=== PATIENT | female | born 1975 | race African-American/Black ===

== ENCOUNTER 2016-11-01 21:27 | Inpatient (IN) | payer OTHER ==
[~2016-11-01 21:27] MED LIST: ALBU1.25 NEB; ALBUAER3 INH; ATOV750UDC PO; AZIT600T PO; CEFU250T PO; CYCL1TAB29 PO; DOLU1TAB PO; PREZ600T2 PO; PROM25TA5 PO; RITO100 PO; VIRE300T2 PO; ZANT150T2 PO
[2016-11-01 21:29] VITALS: BP 92/52; PULSE 106; RESP 16; TEMP 98.5; O2SAT 100
[2016-11-01] MEDS ORDERED: PROM2SUP RECTAL (22:23)
[2016-11-01] MEDS ORDERED: VANCOMYCIN INJ 1,000 MG in SODIUM CHLOR 0.9% 250 ML INJ 250 ML IV ONE (22:30)
[2016-11-01] MEDS ORDERED: PIPERACIL-TAZO 3.375 GM PREMIX 50 ML IV ONE (22:30)
[2016-11-01] MEDS ORDERED: SODIUM CHLOR 0.9% 1000 ML INJ 1,000 ML IV ONE (22:30)
--- NOTE | 2016-11-01 22:31 | PD ---
HPI Chief Complaint: Fever Time Seen by Provider: 22:21 Travel History International Travel<30 days: No Contact w/Intl Traveler<30days: No Traveled to known affect area: No History of Present Illness HPI The patient is a 41 year old female who presents to the [facility] emergency department with a history of reportedly not feeling well for the last 4 days. She reports that it began when she was not able to get up in the mornings to take her HIV medications. The patient reports having generalized weakness. She reports that she's had for the last week of cough been productive of yellow sputum. She reports that she's had a fever with a MAXIMUM TEMPERATURE of 102-103 at home. The patient reports having urinary incontinence , however she reports that this has been chronic. She reports that she last saw her HIV doctor at the end of September. She reports that she was told at that time that her viral load was high and her CD4 count was extremely low. The patient reports that she has had right upper quadrant abdominal pain, however she reports that she was diagnosed with gallbladder disease in June 2016. A surgical consultation was placed at that time and it was recommended that the patient have a cholecystectomy, however the surgeon did not feel comfortable doing it at that time as her "counts were very low" and he was concerned that she would not survive the surgery. The patient denies any recent neck pain, chest pain, worsening shortness of breath (she has a history of COPD), vomiting, diarrhea, new urinary symptoms, or neurologic symptoms. [facility] Past Medical History Narrative Medical The patient's past medical history is significant for HIV/AIDS, originally diagnosed in the , history of acid reflux, history of chronic anemia status post blood transfusions 4 previously, history of COPD, progressive weight loss, history of dysphagia and odontophagia, history of alysia pharyngitis and esophagitis. Arthritis: No Asthma: Yes Autoimmune Disease: Yes Blood Disorders: Yes (ANEMIA ) Anxiety: Yes Depression: No Heart Rhythm Problems: No Cancer: No Cardiovascular Problems: No High Cholesterol: No Chemotherapy: No Chest Pain: No Congestive Heart Failure: No COPD: Yes Cerebrovascular Accident: No Diabetes: No Diminished Hearing: No Endocrine: No Gastrointestinal Disorders: Yes GERD: Yes Glaucoma: No Genitourinary: No Headaches: Yes (daily) Hepatitis: No Hiatal Hernia: No Hypertension: Yes Immune Disorder: Yes (HIV) Kidney Stones: No Musculoskeletal: No Neurologic: No Psychiatric: No Reproductive: No Respiratory: Yes (copd, asthma) Integumentary: Yes (ECZEMA) Immunizations Current: Yes Migraines: No Myocardial Infarction: No Radiation Therapy: No Renal Failure: No Seizures: No Sickle Cell Disease: No Sleep Apnea: No Thyroid Disease: No Ulcer: No ?: Not : 6 Para: 2 Miscarriage: 4 : 4 Ectopic : No Ovarian Cysts: No Tubal Ligation: No Past Surgical History Narrative Surgical The patient's past surgical history is significant for multiple colonoscopies and endoscopies. Abdominal Surgery: No AICD: No Appendectomy: No Arteriovenous Shunt: No Cardiac Surgery: No Cholecystectomy: No Ear Surgery: No Endocrine Surgery: No Eye Surgery: No Genitourinary Surgery: No Gynecologic Surgery: No Hysterectomy: No Insulin Pump: No Joint Replacement: No Oral Surgery: No Pacemaker: No Thoracic Surgery: No Other Surgery: Yes (polyp removal, endoscopy, esoph. ablation) Social History Alcohol Use: No Tobacco Use: Yes (1 PACK EVERY 3 DAYS) Substance Use: Yes (5 years ago, oj) Allergies-Medications (Allergen,Severity, Reaction): Coded Allergies: Cipro (Verified Allergy, Severe, HIVES, 11/01/16) Contrast Media (Verified Allergy, Severe, Hives, 11/01/16) Iodide Tincture (Verified Allergy, Severe, HIVES, 11/01/16) Lisinopril (Unverified Allergy, Severe, Swelling, 11/01/16) Wellbutrin (Verified Allergy, Severe, HIVES, 11/01/16) *MDRO Multi-Drug Resistant Organism (Verified Allergy, Unknown, 11/01/16) MRSA 2009 leg wound Reported Meds & Prescriptions Reported Meds & Active Scripts Active Reported Phenergan Supp (Promethazine HCl) 12.5 Mg Supp 12.5 Mg RECTAL Q6H PRN Phenergan (Promethazine HCl) 25 Mg Tab 25 Mg PO Q6H PRN Viread (Tenofovir Disoproxil Fumarate) 300 Mg Tab 300 Mg PO DAILY Norvir (Ritonavir) 100 Mg Cap 100 Mg PO BID Mepron Liq (Atovaquone) 750 Mg/5 Ml Susp 1,500 Mg PO DAILY Take with food. Tivicay (Dolutegravir Sodium) 50 Mg Tab 50 Mg PO BID Prezista (Darunavir) 600 Mg Tab 600 Mg PO BID Azithromycin 600 Mg Tab 1,200 Mg PO Q7D Proair Hfa 8.5 GM Inh (Albuterol Sulfate) 90 Mcg/Act Aer 2 Puff INH Q6H PRN 108 mcg/actuation Albuterol Neb (Albuterol Sulfate) 1.25 Mg/3 Ml Neb 1.25 Mg NEB TID NEB PRN Review of Systems Except as stated in HPI: all other systems reviewed are Neg General / Constitutional: Positive: Fever Eyes: No: Visual changes HENT: Positive: Congestion, No: Headaches Cardiovascular: Positive: Dyspnea on exertion, No: Chest Pain or Discomfort Respiratory: Positive: Cough, No: Shortness of Breath Gastrointestinal: Positive: Nausea, Loss of Appetite, No: Vomiting, Diarrhea, Abdominal Pain, Changes in Bowel Habits, Indigestion Genitourinary: Positive: Urgency, Incontinence (chronic), No: Frequency, Dysuria Musculoskeletal: No: Pain Skin: No Rash Neurologic: Positive: Weakness (generalized weakness), No: Focal Abnormalities , Change in Mentation, Slurred Speech, Sensory Disturbance Psychiatric: No: Depression Endocrine: No: Polydipsia Hematologic/Lymphatic: No: Easy Bruising Physical Exam Narrative General: The patient is a cachectic appearing female in no acute distress. Head and Neck exam: Head is normocephalic atraumatic. Eyes: EOMI, pupils are equal round and reactive to light. Nose: Midline septum with pink mucous membranes Mouth: Dentition unremarkable. Moist mucus membranes. Posterior oropharynx is not erythematous. No tonsillar hypertrophy. Uvula midline. Airway patent. No evidence of thrush per Neck: No palpable lymphadenopathy. No nuchal rigidity. No thyromegaly. Cardiovascular: Regular rate and rhythm without murmurs, gallops, or rubs. No pulse deficit to the extremities and simultaneous auscultation and palpation of her radial artery. Lungs: Clear to auscultation bilaterally. No wheezes, rhonchi, or rales. Abdomen: Soft, with tenderness on palpation in the right upper quadrant of the abdomen. No other tenderness on palpation of the other 3 quadrants. No tenderness on palpation of McBurney's point. Negative Ornelas's sign. No guarding, rebound, or rigidity. Normal bowel sounds are audible. Extremities: No clubbing, cyanosis, or edema. 2+ pulses in all 4 extremities. Back: No spinous process tenderness to palpation. Right-sided CVA tenderness to palpation. Neurologic Exam: Grossly nonfocal. Skin Exam: No rash noted. Intact skin that is warm and dry. Data Data Last Documented VS Vital Signs Date Time Temp Pulse Resp B/P Pulse Ox O2 Delivery O2 Flow Rate FiO2 11/02/16 01:24 73 18 102/67 100 Room Air 11/02/16 00:51 97.9 Orders Electrocardiogram (11/01/16 22:25) Complete Blood Count With Diff (11/01/16 22:25) Comprehensive Metabolic Panel (11/01/16 22:25) Prothrombin Time / Inr (Pt) (11/01/16 22:25) Act Partial Throm Time (Ptt) (11/01/16 22:25) Lactic Acid Sepsis Protocol (11/01/16 22:25) Magnesium (Mg) (11/01/16 22:25) Lipase (11/01/16 22:25) Ckmb (Isoenzyme) Profile (11/01/16 22:25) Troponin I (11/01/16 22:25) Urinalysis - C+S If Indicated (11/01/16 22:25) Blood Culture (11/01/16 22:25) Chest, Single Ap (11/01/16 22:25) Blood Glucose (11/01/16 22:25) Ecg Monitoring (11/01/16 22:25) Iv Access Insert/Monitor (11/01/16 22:25) Oximetry (11/01/16 22:25) Oxygen Administration (11/01/16 22:25) Sodium Chlor 0.9% 1000 Ml Inj (Ns 1000 M (11/01/16 22:30) Vancomycin Inj (Vancomycin Inj) (11/01/16 22:30) Piperacil-Tazo 3.375 Gm Premix (Zosyn 3. (11/01/16 22:30) Ed Urine Pregnancytest Poc (11/01/16 22:25) Ondansetron Inj (Zofran Inj) (11/01/16 22:45) Type And Screen (11/01/16 23:27) Sodium Chlor 0.9% 250 Ml Inj (Ns 250 Ml (11/01/16 23:30) Red Blood Cells (Rbc) (11/01/16 23:27) Blood Product Administration .UPON TRANSFUSION (11/01/16 23:27) Sodium Chlor 0.9% 250 Ml Inj (Ns 250 Ml (11/01/16 23:30) Urine Culture (11/01/16 23:59) Admit Order (Ed Use Only) (11/02/16 01:43) Labs Laboratory Tests Test 11/01/16 11/01/16 11/01/16 11/01/16 22:50 22:55 23:35 23:59 Prothrombin Time 11.5 SEC Prothromb Time International 1.0 RATIO Ratio Activated Partial 36.4 SEC Thromboplast Time Sodium Level 132 MEQ/L Potassium Level 3.1 MEQ/L Chloride Level 99 MEQ/L Carbon Dioxide Level 22.1 MEQ/L Anion Gap 11 MEQ/L Blood Urea Nitrogen 12 MG/DL Creatinine 0.71 MG/DL Estimat Glomerular Filtration 110 ML/MIN Rate Random Glucose 129 MG/DL Calcium Level 8.0 MG/DL Magnesium Level 1.6 MG/DL Total Bilirubin 0.1 MG/DL Aspartate Amino Transf 15 U/L (AST/SGOT) Alanine Aminotransferase 13 U/L (ALT/SGPT) Alkaline Phosphatase 90 U/L Total Creatine Kinase 31 U/L Troponin I LESS THAN 0.02 NG/ML Total Protein 8.0 GM/DL Albumin 1.7 GM/DL Lipase 288 U/L White Blood Count 9.0 TH/MM3 Red Blood Count 2.21 MIL/MM3 Hemoglobin 5.7 GM/DL Hematocrit 16.8 % Mean Corpuscular Volume 76.2 FL Mean Corpuscular Hemoglobin 25.7 PG Mean Corpuscular Hemoglobin 33.8 % Concent Red Cell Distribution Width 21.3 % Platelet Count 430 TH/MM3 Mean Platelet Volume 7.9 FL Neutrophils (%) (Auto) % Lymphocytes (%) (Auto) % Monocytes (%) (Auto) % Eosinophils (%) (Auto) % Basophils (%) (Auto) % Neutrophils # (Auto) TH/MM3 Lymphocytes # (Auto) TH/MM3 Monocytes # (Auto) TH/MM3 Eosinophils # (Auto) TH/MM3 Basophils # (Auto) TH/MM3 CBC Comment AUTO DIFF Differential Total Cells 100 Counted Neutrophils % (Manual) 94 % Band Neutrophils % 3 % Lymphocytes % 2 % Monocytes % 1 % Neutrophils # (Manual) 8.7 TH/MM3 Differential Comment FINAL DIFF MANUAL Toxic Vacuolation PRESENT Platelet Estimate NORMAL Platelet Morphology Comment NORMAL Basophilic Stippling FAINT Spherocytes OCC Lactic Acid Level 1.1 mmol/L Blood Type B POSITIVE Antibody Screen NEGATIVE Crossmatch Leukocyte-Reduced Red Blood Cells Blood Bank Comment Urine Color YELLOW Urine Turbidity HAZY Urine pH 6.0 Urine Specific [place] 1.016 Urine Protein 30 mg/dL Urine Glucose (UA) NEG mg/dL Urine Ketones NEG mg/dL Urine Occult Blood NEG Urine Nitrite NEG Urine Bilirubin NEG Urine Urobilinogen LESS THAN 2.0 MG/DL Urine Leukocyte Esterase LARGE Urine RBC 11 /hpf Urine WBC /hpf Urine WBC Clumps FEW Urine Squamous Epithelial 2 /hpf Cells Urine Renal Epithelial Cells <1 /hpf Urine Bacteria RARE /hpf Microscopic Urinalysis Comment CATH-CULTURE IND MDM Medical Decision Making Medical Screen Exam Complete: Yes Emergency Medical Condition: Yes Medical Record Reviewed: Yes Interpretation(s) Last Impressions Chest X-Ray 11/01/162224 Signed Impressions: Service Date/Time: Tuesday, November 01, 2016 23:15 - CONCLUSION: No acute disease. Brant Taylor MD Differential Diagnosis Symptomatic anemia, versus sepsis, versus pyelonephritis, versus acute cholecystitis, versus pneumonia Narrative Course During the course of the patients emergency department visit, the patients history, examination, and differential diagnosis were reviewed with the patient. The patient had IV access obtained and blood work sent for analysis. The patient was placed on a cardiac sonographer with oximetry and blood pressure monitoring. An EKG was done on arrival. The patient's EKG shows a sinus rhythm heart rate of 81, nonspecific T-wave abnormalities, no acute ST segment elevation. T waves are inverted in V1, lead 3. The patient was provided normal saline 1 L IV fluid bolus. The patient was given vancomycin 1 g IV, Zosyn 3.375 g IV. The patients laboratory studies were reviewed and remarkable for a white count of 9, hemoglobin 5.7, hematocrit 16.8, platelets 430 with neutrophils 94, bands 3, lymphocytes 2. Toxic vacuolation is present on CBC. The patient was typed and crossmatched for 4 units of packed red blood cells, 2 units will be administered as soon as available. CMP is remarkable for a sodium of 132, potassium 3.1, glucose 129, calcium 8, total bilirubin 0.1, cardiac enzymes are within normal limits, lipase 288, PT PTT unremarkable, urinalysis shows 30 protein large leukocyte esterase innumerable WBCs few clumps 2 squamous epithelial cells rare bacteria, culture indicated. Radiology studies were reviewed and remarkable for a chest x-ray that shows no acute abnormality. The patient's results were discussed with her. The patient will be admitted to the hospital for continued evaluation and treatment with symptomatic anemia, pyelonephritis, and an immunocompromise state due to noncompliance with her HIV medication regimen. The patients results were discussed with the patient, including the plan of care. I explained that further testing and/ or monitoring is indicated based on the patients history, examination, and/ or laboratory findings. Therefore, I recommended admission for additional evaluation. The patient expressed understanding and was agreeable with this plan. The patient was admitted to the hospital in stable condition and sent to a bed under the care of the [facility]. Sepsis Criteria SIRS Criteria (2 or more): Heart rate over 90 Diagnosis Primary Impression: Symptomatic anemia Additional Impression: Pyelonephritis Colette Garg MD Nov 01, 2016 22:31
[2016-11-01] MEDS ORDERED: ONDANSETRON HCL 4 MG/2 ML VIAL IV ONE (22:45)
[2016-11-01 23:12] LABS: MEAN CELL VOLUME 76.2 FL (80.0-100.0); MEAN CORPUSCULAR HEMOGLOBIN 25.7 PG (27.0-34.0); MEAN CORPUSCULAR HGB CONC 33.8 % (32.0-36.0); PLATELET COUNT 430 TH/MM3 (150-450); RED BLOOD COUNT 2.21 MIL/MM3 (4.00-5.30); RED CELL DISTRIBUTION WIDTH 21.3 % (11.6-17.2)
[2016-11-01 23:16] LABS: HEMO FLAGS AUTO DIFF
[2016-11-01 23:18] LABS: HEMATOCRIT 16.8 % (35.0-46.0)
[2016-11-01 23:27] LABS: ALT (GPT) 13 U/L (10-53); ANION GAP 11 MEQ/L (5-15); APTT (PATIENT) 36.4 SEC (24.3-30.1); AST (GOT) 15 U/L (15-37); BICARBONATE 22.1 MEQ/L (21.0-32.0); BLOOD UREA NITROGEN 12 MG/DL (7-18); CHLORIDE 99 MEQ/L (98-107); GLOMERULAR FILTRATION RATE 110 ML/MIN (>89); MAGNESIUM 1.6 MG/DL (1.5-2.5); POTASSIUM 3.1 MEQ/L (3.5-5.1); PROTHROMBIN TIME - PATIENT 11.5 SEC (9.8-11.6); SODIUM (NA) 132 MEQ/L (136-145)
[2016-11-01] MEDS ORDERED: SODIUM CHLOR 0.9% 250 ML INJ 250 ML IV ONE ×2 (23:30)
--- NOTE | 2016-11-01 23:30 | RADRPT ---
EXAM DATE/TIME: 11/01/2016 23:15 [place] COMPARISON: CHEST SINGLE AP, August 26, 2016, 20:28. INDICATIONS : Shortness of breath. MEDICAL HISTORY : Chronic obstructive pulmonary disease. SURGICAL HISTORY : None. ENCOUNTER: Initial ACUITY: 2 days PAIN SCORE: 0/10 LOCATION: Bilateral chest FINDINGS: A single view of the chest demonstrates the lungs to be symmetrically aerated without evidence of mas s, infiltrate or effusion. The cardiomediastinal contours are unremarkable. Osseous structures are intact. CONCLUSION: No acute disease. Brant Taylor MD on November 01, 2016 at 23:28 Board Certified Radiologist. This report was verified electronically.
[2016-11-01 23:31] LABS: ALKALINE PHOSPHATASE 90 U/L (45-117); CREATINE KINASE 31 U/L (26-192); TOTAL BILIRUBIN ADULT 0.1 MG/DL (0.2-1.0)
[2016-11-01 23:50] LABS: BANDS 3 % (0-6); NEUTROPHIL # MANUAL DIFF 8.7 TH/MM3 (1.8-7.7); PLATELET MORPHOLOGY NORMAL (NORMAL); POLYS (SEG NEUTROPHILS) 94 % (16-70); SCAN/DIFF FINAL DIFF MANUAL; WBC DIFF SAMPLE 100
[2016-11-01 23:53] LABS: PLATELET ESTIMATE SMEAR NORMAL (NORMAL)
[2016-11-01 23:54] LABS: TOXIC VACUOLATION PRESENT (NONE SEEN)
[2016-11-01 23:55] LABS: SPHEROCYTES OCC (NORMAL)
[2016-11-02] VITALS (15 sets, daily range): BP systolic 97–120; BP diastolic 54–75; PULSE 73–109; RESP 16–20; TEMP 96.4–102.2; O2SAT 98–100
[2016-11-02 00:28] LABS: BACTERIA, URINE RARE /hpf; BLOOD, URINE NEG (NEG); GLUCOSE,URINE NEG (NEG); KETONE, URINE NEG (NEG); NITRITE,URINE NEG (NEG); RENAL EPITHELIAL CELLS <1 /hpf; SQUAMOUS EPITHELIAL CELL URINE 2 /hpf (0-5); URINE COLOR YELLOW (YELLW/STRAW)
[2016-11-02 00:29] LABS: COMMENT (UR) CATH-CULTURE IND; CULTURE IF INDICATED CATH CULTURE IND
[2016-11-02] MEDS ORDERED: ACETAMINOPHEN 325 MG TAB PO PRN (01:45)
[2016-11-02] MEDS ORDERED: SODIUM CHLORIDE 0.9% FLUSH 5 ML FLUSH FLUSH PRN (01:45)
[2016-11-02] MEDS ORDERED: BISACODYL 10 MG SUPP PR PRN (01:45)
[2016-11-02] MEDS ORDERED: ALBUTEROL SULFATE 90 MCG/ACT HFA 8 GM INHALER INH PRN (01:45)
[2016-11-02] MEDS ORDERED: AZITHROMYCIN 600 MG TAB PO SCH (01:45)
[2016-11-02] MEDS ORDERED: POTASSIUM CHLORIDE 20 MEQ CONTROLLED RELEASE TAB PO ONE (02:00)
--- NOTE | 2016-11-02 03:09 | HHI.HP ---
[facility] Service [facility] Primary Care Physician Andrew Hadley Admission Diagnosis symptomatic anemia, pyelonephritis Diagnoses: (1) Anemia Diagnosis: Principal (2) Hypokalemia Diagnosis: Principal (3) UTI (urinary tract infection) Diagnosis: Principal (4) AIDS (acquired immune deficiency syndrome) Diagnosis: Principal Travel History International Travel<30 Days: No Contact w/Intl Traveler <30 Da: No Traveled to Known Affected Are: No History of Present Illness This is a 41-year-old female with a PMH of HIV/AIDS (CD4 <20 on 07/14/16), Non- Compliance, COPD and Anemia who presented to the ER with complaints of generalized weakness x3-4 days. Reports associated cough and fever today at home of 102. States hasn't been taking her HAART therapy regularly because she' s been "too weak to get out of bed". Follows w/ Dr. Cardenas, next appt in December , pt unsure of her CD4 count. On arrival, BP 92/52, HR 106, O2 sat 100% on RA, Afebrile. WBC 9, increased neutrophil count. Hgb 5.7. No active bleeding noted. K+ 3.1. U/a w/ UTI. CXR w/ no acute findings. S/p Blood Culture, Vanc /Zosyn in ER. 2u pRBC ordered, currently transfusing unit 1. Review of Systems Other ROS: 14 point review of systems otherwise negative. Past Family Social History Past Medical History PMH: HIV/AIDS (CD4 <20 on 07/14/16), Non-Compliance, COPD and Anemia Past Surgical History PAST SURGICAL HISTORY: Esophageal Ablation, Polypectomy Allergies: Coded Allergies: Cipro (Verified Allergy, Severe, HIVES, 11/01/16) Contrast Media (Verified Allergy, Severe, Hives, 11/01/16) Iodide Tincture (Verified Allergy, Severe, HIVES, 11/01/16) Lisinopril (Unverified Allergy, Severe, Swelling, 11/01/16) Wellbutrin (Verified Allergy, Severe, HIVES, 11/01/16) *MDRO Multi-Drug Resistant Organism (Verified Allergy, Unknown, 11/01/16) MRSA 2009 leg wound Family History PAST FAMILY HISTORY: Reviewed. No h/o DM or CAD Social History PAST SOCIAL HISTORY: Negative for alcohol. Positive for tobacco and Marijuana. Physical Exam Vital Signs Vital Signs Date Time Temp Pulse Resp B/P Pulse Ox O2 Delivery O2 Flow Rate FiO2 11/02/16 01:24 73 18 102/67 100 Room Air 11/02/16 00:51 97.9 76 18 97/63 100 Room Air 11/01/16 21:29 98.5 106 16 92/52 100 Physical Exam PE: GENERAL: Thin, chronically ill-appearing middle-aged black female female in no acute distress. HEENT: PERRLA, EOMI. No scleral icterus or conjunctival pallor. No lid lag or facial droop. CARDIOVASCULAR: Regular rate and rhythm. No obvious murmurs to auscultation. No chest tenderness to palpation. RESPIRATORY: No obvious rhonchi or wheezing. Clear to auscultation. Breath sounds equal bilaterally. GASTROINTESTINAL: Abdomen soft, non-tender, nondistended. BS normal. MUSCULOSKELETAL: Extremities without clubbing, cyanosis, or edema. No obvious deformities. NEUROLOGICAL: Awake, alert and oriented x4. No focal neurologic deficits. Moving both upper and lower extremities spontaneously. Laboratory Laboratory Tests Test 11/01/16 11/01/16 11/01/16 11/01/16 22:50 22:55 23:35 23:59 Prothrombin Time 11.5 Prothromb Time International 1.0 Ratio Activated Partial 36.4 Thromboplast Time Sodium Level 132 Potassium Level 3.1 Chloride Level 99 Carbon Dioxide Level 22.1 Anion Gap 11 Blood Urea Nitrogen 12 Creatinine 0.71 Estimat Glomerular Filtration 110 Rate Random Glucose 129 Calcium Level 8.0 Magnesium Level 1.6 Total Bilirubin 0.1 Aspartate Amino Transf 15 (AST/SGOT) Alanine Aminotransferase 13 (ALT/SGPT) Alkaline Phosphatase 90 Total Creatine Kinase 31 Troponin I LESS THAN 0.02 Total Protein 8.0 Albumin 1.7 Lipase 288 White Blood Count 9.0 Red Blood Count 2.21 Hemoglobin 5.7 Hematocrit 16.8 Mean Corpuscular Volume 76.2 Mean Corpuscular Hemoglobin 25.7 Mean Corpuscular Hemoglobin 33.8 Concent Red Cell Distribution Width 21.3 Platelet Count 430 Mean Platelet Volume 7.9 Neutrophils (%) (Auto) Lymphocytes (%) (Auto) Monocytes (%) (Auto) Eosinophils (%) (Auto) Basophils (%) (Auto) Neutrophils # (Auto) Lymphocytes # (Auto) Monocytes # (Auto) Eosinophils # (Auto) Basophils # (Auto) CBC Comment AUTO DIFF Differential Total Cells 100 Counted Neutrophils % (Manual) 94 Band Neutrophils % 3 Lymphocytes % 2 Monocytes % 1 Neutrophils # (Manual) 8.7 Differential Comment FINAL DIFF MANUAL Toxic Vacuolation PRESENT Platelet Estimate NORMAL Platelet Morphology Comment NORMAL Basophilic Stippling FAINT Spherocytes OCC Lactic Acid Level 1.1 Blood Type B POSITIVE Antibody Screen NEGATIVE Crossmatch Leukocyte-Reduced Red Blood Cells Blood Bank Comment Urine Color YELLOW Urine Turbidity HAZY Urine pH 6.0 Urine Specific [place] 1.016 Urine Protein 30 Urine Glucose (UA) NEG Urine Ketones NEG Urine Occult Blood NEG Urine Nitrite NEG Urine Bilirubin NEG Urine Urobilinogen LESS THAN 2.0 Urine Leukocyte Esterase LARGE Urine RBC 11 Urine WBC Urine WBC Clumps FEW Urine Squamous Epithelial 2 Cells Urine Renal Epithelial Cells <1 Urine Bacteria RARE Microscopic Urinalysis Comment CATH-CULTURE IND Date/Time Procedure Status Source Growth 11/01/16 23:59 Urine Culture Received Urine Catheterized Urine Pending 11/01/16 22:55 Aerobic Blood Culture Received Blood Peripheral Pending 11/01/16 22:55 Anaerobic Blood Culture Received Blood Peripheral Pending Result Diagram: 11/01/16 2250 11/01/16 2250 Assessment and Plan Problem List: (1) Anemia ICD Code: D64.9 Status: Acute (2) Hypokalemia ICD Code: E87.6 Status: Acute (3) UTI (urinary tract infection) ICD Code: N39.0 Status: Acute (4) AIDS (acquired immune deficiency syndrome) ICD Code: B20 Status: Chronic Assessment and Plan A/P: 1. Anemia: Symptomatic Anemia, c/o generalized weakness/fatigue x2-3 days. Hgb 5.7, no active bleeding. 2u pRBC ordered in ER, currently receiving 1st unit, repeat Hgb/Hct following transfusion. Telemetry. Hemodynamically stable at this time. 2. HIV/AIDS: w/ Non-compliance. CD4 <20 on 07/14/16, resume HAART, Zithro, Atovaquone. CXR w/ no acute findings, images reviewed by me. 3. Hypokalemia: K+ 3.1, replace and recheck in am. 4. UTI: U/a w/ UTI, WBC normal however elevated neutrophil, +temp at home. S/ p Blood Cultures, Vanc/Zosyn in ER, Follow up Blood/Urine Cultures, continue IV Abx. IVF. 5. DVT Prophylaxis: Pharmacologic contraindication secondary to symptomatic anemia. 6. Social work for d/c planning as needed. 7. Case discussed w/ ER physician at length. Ling Holliday MD Nov 02, 2016 03:09
[2016-11-02] MEDS: ONDANSETRON HCL 4 MG/2 ML VIAL IVP PRN ×3 (05:26→21:40)
[2016-11-02] MEDS: SODIUM CHLORIDE 0.9% FLUSH 5 ML FLUSH FLUSH SCH ×2 (08:31→21:41)
[2016-11-02] MEDS: cefTRIAXone INJ 1,000 MG in SODIUM CHLORIDE 0.9% INJ 100 ML IV SCH (08:34)
[2016-11-02 09:43] LABS: BASOPHIL % 0.4 % (0.0-2.0); EOSINOPHIL % 0.2 % (0.0-4.0); HEMATOCRIT 28.2 % (35.0-46.0); LYMPH % 2.4 % (9.0-44.0); LYMPHOCYTE # 0.3 TH/MM3 (1.0-4.8); MEAN CELL VOLUME 81.6 FL (80.0-100.0); MEAN CORPUSCULAR HEMOGLOBIN 27.2 PG (27.0-34.0); MEAN CORPUSCULAR HGB CONC 33.3 % (32.0-36.0); MONO % 4.7 % (0.0-8.0); NEUT % 92.3 % (16.0-70.0); PLATELET COUNT 382 TH/MM3 (150-450); RED BLOOD COUNT 3.45 MIL/MM3 (4.00-5.30); RED CELL DISTRIBUTION WIDTH 18.1 % (11.6-17.2); WHITE BLOOD COUNT 12.9 TH/MM3 (4.0-11.0)
[2016-11-02 09:47] LABS: HEMO FLAGS AUTO DIFF
[2016-11-02 10:22] LABS: ALKALINE PHOSPHATASE 80 U/L (45-117); ALT (GPT) 11 U/L (10-53); ANION GAP 6 MEQ/L (5-15); AST (GOT) 15 U/L (15-37); BICARBONATE 23.5 MEQ/L (21.0-32.0); BLOOD UREA NITROGEN 11 MG/DL (7-18); CHLORIDE 105 MEQ/L (98-107); GLOMERULAR FILTRATION RATE 97 ML/MIN (>89); POTASSIUM 4.1 MEQ/L (3.5-5.1); SODIUM (NA) 134 MEQ/L (136-145); TOTAL BILIRUBIN ADULT 0.2 MG/DL (0.2-1.0)
[2016-11-02 10:27] LABS: BANDS 6 % (0-6); BASOPHILS 1 % (0-2); NEUTROPHIL # MANUAL DIFF 12.4 TH/MM3 (1.8-7.7); POLYS (SEG NEUTROPHILS) 90 % (16-70); WBC DIFF SAMPLE 100
[2016-11-02 10:28] LABS: HYPERSEGMENTED POLYS 1+ (NORMAL)
[2016-11-02 10:29] LABS: PLATELET ESTIMATE SMEAR NORMAL (NORMAL); PLATELET MORPHOLOGY NORMAL (NORMAL); SCAN/DIFF FINAL DIFF MANUAL
--- NOTE | 2016-11-02 10:36 | MB ---
cc: TRACEY SILVER DATE OF CONSULTATION: 11/02/2015 DATE OF : 1975 REASON FOR CONSULTATION Patient with a history of HIV and noncompliance, who presents with generalized weakness, fevers and severe anemia. CHIEF COMPLAINT Generalized weakness. HISTORY OF PRESENT ILLNESS Ms. Nathan is a 41-year-old female with a past medical history of HIV and AIDS with noncompliance with her therapy. She has a history of tobacco abuse and COPD. She presents to the emergency department with one-week symptoms of worsening fatigue and weakness. She also endorses fever and cough. She has been noncompliant with her antiretroviral medications. In June 2016 her CD4 count was less than 20. The patient was hypotensive and tachycardic on admission. Her hemoglobin was 5.7 with microcytosis. UA was consistent with a UTI. Chest x-ray was negative. She was given two units of packed red blood cells. I have been consulted to evaluate her anemia. REVIEW OF SYSTEMS A comprehensive 14-point review of systems was completed which is negative except as described in the HPI. PAST MEDICAL HISTORY 1. HIV/noncompliance with her antiretroviral medications. 2. History of tobacco abuse. 3. COPD. 4. History of anemia. PAST SURGICAL HISTORY Esophageal ablation, polypectomy. MEDICATIONS Inpatient medications include: 1. Atovaquone 1500 mg daily. 2. Darunavir 600 mg tablet p.o. b.i.d. 3. Ritonavir 100 mg p.o. b.i.d. 4. Tenofovir 300 mg p.o. daily. 5. Ceftriaxone 1000 mg IV q.24h. 6. Zofran 4 mg IV q.6h. 7. Dulcolax 10 mg p.r.n. 8. Tylenol 650, one tablet p.o. q.6h. 9. [place] 5/325, one tablet p.o. q.4h. p.r.n. 10.Duo nebs. 11.Azithromycin 1200 mg, one tablet p.o. q.7 days. ALLERGIES 1. CIPRO. 2. CONTRAST MEDIA. 3. IODINE TINCTURE. 4. LISINOPRIL. 5. WELLBUTRIN. PHYSICAL EXAMINATION VITAL SIGNS: Blood pressure 97/56, pulse in the 90s, temperature 98.9, respiratory rate 16, O2 sats 100%. PHYSICAL EXAMINATION GENERAL: A thin, cachectic, chronically ill-appearing female in no apparent distress. HEENT: Pupils are equal, round, reactive to light. EOMI. No oral thrush. No oral lesions. NECK: Supple. No JVD. No bruits. No lymphadenopathy. CHEST: Clear to auscultation bilaterally. CARDIAC: S1, S2. Regular rate and rhythm. ABDOMEN: Soft, nontender, nondistended. Bowel sounds are present. EXTREMITIES: Without any edema, erythema or cyanosis. SKIN: Without any petechiae, lesion or bruises. NEUROLOGIC: No focal deficits. PSYCHIATRIC: Mood and affect is appropriate. LYMPH NODE: No lymphadenopathy on exam. LABORATORY WBC 9, hemoglobin 5.7, MCV 76.2, platelet count 430. Serum chemistries show sodium of 132, potassium 3.1, CO2 22.1, BUN 12, creatinine 0.71, GFR 110, glucose 129, lactic acid 1.1, magnesium 1.6, total bilirubin 0.1, AST 15, ALT 13, alk phos 90, troponins less than 0.02, total protein 8, albumin 1.7, lipase 288. Coag studies show PT of 11.5, INR 1, PTT 36.4. UA is consistent with a large leukocyte esterase. There are innumerable wbc's. IMAGING Chest x-ray shows no acute abnormality. ASSESSMENT AND PLAN This is a 41-year-old female with a past medical history of HIV/AIDS, tobacco abuse and COPD. She noncompliant with her HIV medications. She presents to the emergency department with progressively worsening fatigue/weakness and was found to be severely anemic. 1. Severe microcytic anemia. There are a number of factors that may be contributing towards her anemia including uncontrolled HIV/AIDS. She is microcytic. There is a possibility of underlying GI bleed/iron deficiency. We need to rule out any underlying hemolysis. We will check LDH and haptoglobin and direct [place] test. We will obtain anemia studies to check for serum iron, B12 and folate. Check for any other underlying additional infections such as hepatitis B and C. We will obtain a hemoglobin electrophoresis to rule out any underlying sickle-cell disease or trait. We will transfuse packed red blood cells to keep hemoglobin greater than 7. 2. HIV/AIDS with documented CD4 count of less than 20 on 07/14/2015. Resume HIV medications. Would recommend consulting Infectious Disease. 3. UTI. Urine cultures pending. Continue antibiotics as per primary team. 4. Hypokalemia, potassium of 3.1. Replace potassium. 5. Hypoalbuminemia and malnutrition, likely related to uncontrolled HIV/AIDS. Would recommend a dietary consult. 6. I would also recommend obtaining a stool Hemoccult to rule out any GI loss. Thank you for allowing me to participate in the care of this patient. I will continue to follow this patient along. MD HARJINDER Quinn/CHAVA /9:18 AM /10:14 AM MTDRosalino
--- NOTE | 2016-11-02 11:16 | PD.CONS ---
History of Present Illness Service Infectious disease Consult Requested By Dr Charly Whitaker Reason for Consult Evaluate patient with HIV, UTI and sepsis Primary Care Physician Andrew Hadley Diagnoses: History of Present Illness Patient seen and examined. Records reviewed. Patient is a very poor historian and not very reliable. Patient is a 41-year-old female presented to the hospital complaining of fever, and that she needs help because she's been having problems taking her medications, as well as problem with some nausea and vomiting. Patient states that she has been having fever for at least a month on a daily basis, but he has not addressed this issue with her HIV doctor or her primary care physician. She has a chronic cough which she attributes to her COPD and asthma, denies any significant sputum production, denies chest pain, and currently denies any shortness of breath. She denies any abdominal pain or any diarrhea. She denies any urinary problem. Patient in the past has had problem with dysphagia and odynophagia, and has had previous esophageal dilation. Currently she denies any swallowing difficulty. Patient has had significant weight loss, and very cachectic. On presentation she has been febrile up to 102. Her WBC is slightly elevated at 12,000, and her hemoglobin was 5.7. He denies any hematemesis, hematochezia , or any bright red blood per rectum. She denies any stool with maroon color. She denies any hematuria. She denies any vaginal bleeding. Her chest x-ray is normal. Her urinalysis did show some pyuria. Patient received 2 units of packed RBC, and her hemoglobin is up to 9. Patient has known HIV, and follows up with Dr. Le. Her last CD4 count from June was less than 20. She has had blood culture with АЛЕКСАНДР, and it's unclear whether she has been on treatment. And has had multiple admissions last year and she had signed out AMA on those 3 hospitalizations. Patient stated the last time she saw her HIV doctor was in July of last year, and she is due to see the doctor in December. Infectious disease consultation has been requested to evaluate the patient. Review of Systems Constitutional: COMPLAINS OF: Fever, Weight loss, Chills, Change in appetite Eyes: DENIES: Eye pain Ears, nose, mouth, throat: DENIES: Nasal discharge, Oral lesions, Throat pain, Ear Pain Respiratory: COMPLAINS OF: Cough, DENIES: Hemoptysis, Sputum production, Shortness of breath Cardiovascular: DENIES: Chest pain, Palpitations, Syncope Gastrointestinal: COMPLAINS OF: Nausea, Vomiting, DENIES: Abdominal pain, Black stools, Bloody stools, Constipation, Diarrhea, Difficulty Swallowing Genitourinary: DENIES: Urinary frequency, Dysuria, Nocturia Musculoskeletal: DENIES: Joint pain, Joint Swelling Integumentary: COMPLAINS OF: Rash, DENIES: Nipple discharge Immunologic/allergic: DENIES: Urticaria Neurologic: DENIES: Headache Psychiatric: DENIES: Anxiety Past Family Social History Allergies: Coded Allergies: Cipro (Verified Allergy, Severe, HIVES, 11/01/16) Contrast Media (Verified Allergy, Severe, Hives, 11/01/16) Iodide Tincture (Verified Allergy, Severe, HIVES, 11/01/16) Lisinopril (Unverified Allergy, Severe, Swelling, 11/01/16) Wellbutrin (Verified Allergy, Severe, HIVES, 11/01/16) *MDRO Multi-Drug Resistant Organism (Verified Allergy, Unknown, 11/01/16) MRSA 2009 leg wound Past Medical History HIV, AIDS on the basis of very low CD4 count and АЛЕКСАНДР in the blood culture Hypertension COPD GERD Past Surgical History History of esophageal dilatation and EGD as well as colonoscopy Active Ordered Medications Tylenol [place] Albuterol Mepron Zithromax Dulcolax Rocephin Prezista Zofran Norvir Viread Social History Used to smoke 1 pack per day, now down to less than 1 pack per day of cigarettes Rare alcohol Denies illicit IV drug use, has smoked marijuana in the past Physical Exam Vital Signs Vital Signs Date Time Temp Pulse Resp B/P Pulse Ox O2 Delivery O2 Flow Rate FiO2 11/02/16 08:00 97.4 109 20 114/75 100 11/02/16 06:36 98.9 98 16 97/56 100 11/02/16 05:42 99.4 100 17 107/66 100 11/02/16 05:30 98 11/02/16 05:25 99.4 100 17 107/66 100 11/02/16 05:20 99.9 99 17 102/60 100 11/02/16 05:15 99.9 99 17 102/60 100 11/02/16 04:55 102.2 101 18 99/54 100 11/02/16 04:38 101.2 101 18 99/54 100 11/02/16 03:50 96 18 120/66 99 Room Air 11/02/16 01:24 73 18 102/67 100 Room Air 11/02/16 00:51 97.9 76 18 97/63 100 Room Air 11/01/16 21:29 98.5 106 16 92/52 100 Physical Exam GENERAL: This is a cachectic, well-developed female, looks chronically ill appearing, not in any form of distress. SKIN: Warm and dry, no generalized rash. HEAD: Atraumatic. Normocephalic. Has temporal wasting EYES: [place] conjunctivae, no petechia or hemorrhage. Pupils equal round and reactive. Extraocular motions intact. No scleral icterus. No injection or drainage. ENT: Nose without bleeding, or purulent drainage. Moist oral mucosa, no oral thrush. Throat without erythema, or exudate. Uvula midline. Airway patent. NECK: Trachea midline. No JVD. Has cervical lymphadenopathy. Supple, nontender , no meningeal signs. CARDIOVASCULAR: Regular rate and rhythm without murmurs, gallops, or rubs. RESPIRATORY: Clear to auscultation. Breath sounds equal bilaterally. No wheezes , rales, or rhonchi. GASTROINTESTINAL: Abdomen soft, non-tender, distended, all sounds are present and normoactive. No guarding. MUSCULOSKELETAL: Extremities without clubbing, cyanosis, or edema. No joint effusion, or edema noted. No calf tenderness. Negative Homans sign bilaterally. NEUROLOGICAL: Awake and alert. Cranial nerves II through XII intact. Motor and sensory grossly within normal limits. Five out of 5 muscle strength in all muscle groups. Normal speech. PSYCH: Calm, and cooperative LINE: PIV with no evidence of infection Laboratory Laboratory Tests Test 11/01/16 11/01/16 11/01/16 11/01/16 22:50 22:55 23:35 23:59 Prothrombin Time 11.5 Prothromb Time International 1.0 Ratio Activated Partial 36.4 Thromboplast Time Sodium Level 132 Potassium Level 3.1 Chloride Level 99 Carbon Dioxide Level 22.1 Anion Gap 11 Blood Urea Nitrogen 12 Creatinine 0.71 Estimat Glomerular Filtration 110 Rate Random Glucose 129 Calcium Level 8.0 Magnesium Level 1.6 Total Bilirubin 0.1 Aspartate Amino Transf 15 (AST/SGOT) Alanine Aminotransferase 13 (ALT/SGPT) Alkaline Phosphatase 90 Total Creatine Kinase 31 Troponin I LESS THAN 0.02 Total Protein 8.0 Albumin 1.7 Lipase 288 White Blood Count 9.0 Red Blood Count 2.21 Hemoglobin 5.7 Hematocrit 16.8 Mean Corpuscular Volume 76.2 Mean Corpuscular Hemoglobin 25.7 Mean Corpuscular Hemoglobin 33.8 Concent Red Cell Distribution Width 21.3 Platelet Count 430 Mean Platelet Volume 7.9 Neutrophils (%) (Auto) Lymphocytes (%) (Auto) Monocytes (%) (Auto) Eosinophils (%) (Auto) Basophils (%) (Auto) Neutrophils # (Auto) Lymphocytes # (Auto) Monocytes # (Auto) Eosinophils # (Auto) Basophils # (Auto) CBC Comment AUTO DIFF Differential Total Cells 100 Counted Neutrophils % (Manual) 94 Band Neutrophils % 3 Lymphocytes % 2 Monocytes % 1 Neutrophils # (Manual) 8.7 Differential Comment FINAL DIFF MANUAL Toxic Vacuolation PRESENT Platelet Estimate NORMAL Platelet Morphology Comment NORMAL Basophilic Stippling FAINT Spherocytes OCC Lactic Acid Level 1.1 Blood Type B POSITIVE Antibody Screen NEGATIVE Crossmatch Leukocyte-Reduced Red Blood Cells Blood Bank Comment Urine Color YELLOW Urine Turbidity HAZY Urine pH 6.0 Urine Specific [place] 1.016 Urine Protein 30 Urine Glucose (UA) NEG Urine Ketones NEG Urine Occult Blood NEG Urine Nitrite NEG Urine Bilirubin NEG Urine Urobilinogen LESS THAN 2.0 Urine Leukocyte Esterase LARGE Urine RBC 11 Urine WBC Urine WBC Clumps FEW Urine Squamous Epithelial 2 Cells Urine Renal Epithelial Cells <1 Urine Bacteria RARE Microscopic Urinalysis Comment CATH-CULTURE IND Test 11/02/16 09:27 White Blood Count 12.9 Red Blood Count 3.45 Hemoglobin 9.4 Hematocrit 28.2 Mean Corpuscular Volume 81.6 Mean Corpuscular Hemoglobin 27.2 Mean Corpuscular Hemoglobin 33.3 Concent Red Cell Distribution Width 18.1 Platelet Count 382 Mean Platelet Volume 7.4 Neutrophils (%) (Auto) 92.3 Lymphocytes (%) (Auto) 2.4 Monocytes (%) (Auto) 4.7 Eosinophils (%) (Auto) 0.2 Basophils (%) (Auto) 0.4 Neutrophils # (Auto) 12.0 Lymphocytes # (Auto) 0.3 Monocytes # (Auto) 0.6 Eosinophils # (Auto) 0.0 Basophils # (Auto) 0.0 CBC Comment AUTO DIFF Differential Total Cells 100 Counted Neutrophils % (Manual) 90 Band Neutrophils % 6 Lymphocytes % 1 Monocytes % 2 Basophils % 1 Neutrophils # (Manual) 12.4 Differential Comment FINAL DIFF MANUAL Hypersegmented Polys 1+ Platelet Estimate NORMAL Platelet Morphology Comment NORMAL Sodium Level 134 Potassium Level 4.1 Chloride Level 105 Carbon Dioxide Level 23.5 Anion Gap 6 Blood Urea Nitrogen 11 Creatinine 0.79 Estimat Glomerular Filtration 97 Rate Random Glucose 76 Calcium Level 7.8 Total Bilirubin 0.2 Aspartate Amino Transf 15 (AST/SGOT) Alanine Aminotransferase 11 (ALT/SGPT) Alkaline Phosphatase 80 Total Protein 7.4 Albumin 1.5 Date/Time Procedure Status Source Growth 11/01/16 23:59 Urine Culture Received Urine Catheterized Urine Pending 11/01/16 22:55 Aerobic Blood Culture Received Blood Peripheral Pending 11/01/16 22:55 Anaerobic Blood Culture Received Blood Peripheral Pending Result Diagram: 11/02/16 0927 11/02/16 0927 Imaging RADIOLOGY STUDIES/FILMS REVIEWED Chest X-Ray 11/01/16 7845 Signed Impressions: Service Date/Time: Tuesday, November 01, 2016 23:15 - CONCLUSION: No acute disease. 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 - May need bone marrow biopsy Follow cultures Monitor progress I will determine course of antibiotics once workup is completed I will follow along with you For this consultation Discussed Condition With Rosalino/Pancho Cr PA-C Explained plan to patient - patient states that she will stay in hospital to complete her work-up and not sign out Lakia Khan MD Nov 02, 2016 11:16
--- NOTE | 2016-11-02 11:41 | EKG ---
Date Performed: 11/01/2016 Time Performed: 23:22:51 PTAGE: 41 years EKG: Sinus rhythm NONSPECIFIC T-WAVE ABNORMALITY ABNORMAL ECG PREVIOUS TRACING : 05/22/2016 20.00 DOCTOR: Armen Dubon Interpretating Date/Time 11/02/2016 11:38:36
[2016-11-02] MEDS: TENOFOVIR DISOPROXIL FUMARATE 300 MG TAB PO SCH (14:24)
[2016-11-02] MEDS: ATOVAQUONE SUSP 750 MG/5 ML UDC PO SCH (14:25)
[2016-11-02] MEDS: DOLUTEGRAVIR SODIUM 50 MG TAB PO SCH ×2 (14:25→21:41)
[2016-11-02] MEDS: ETHAMBUTOL HCL 400 MG TAB PO SCH ×2 (14:26→14:36)
[2016-11-02] MEDS: RITONAVIR 100 MG TAB PO SCH ×2 (14:27→21:41)
[2016-11-02] MEDS: DARUNAVIR 600 MG TAB PO SCH ×2 (14:27→21:40)
[2016-11-02] MEDS ORDERED: LOPERAMIDE HCL 2 MG CAP PO PRN (15:45)
[2016-11-02] MEDS: LACTOBACILLUS ACIDOPHILUS TAB PO SCH (18:20)
[2016-11-02] MEDS: NICOTINE 21 MG/24 HR PATCH TD SCH (18:21)
[2016-11-02 20:58] LABS: LDH SERUM 293 U/L (84-246); TRANSFERRIN IRON PROFILE 112 MG/DL (200-360)
[2016-11-02] MEDS: REMOVE OLD NICODERM (NICOTINE) PATCH TD SCH (21:00)
[2016-11-02] MEDS: CLARITHROMYCIN 500 MG TAB PO SCH (21:40)
[2016-11-03] VITALS (8 sets, daily range): BP systolic 88–109; BP diastolic 56–76; PULSE 63–100; RESP 18–20; TEMP 97.4–101.3; O2SAT 93–100
[2016-11-03 08:30] LABS: AUTOMATED NEUTROPHIL # 8.9 TH/MM3 (1.8-7.7); BASOPHIL % 0.3 % (0.0-2.0); EOSINOPHIL % 0.2 % (0.0-4.0); HEMATOCRIT 29.2 % (35.0-46.0); LYMPH % 2.2 % (9.0-44.0); LYMPHOCYTE # 0.2 TH/MM3 (1.0-4.8); MEAN CELL VOLUME 81.9 FL (80.0-100.0); MEAN CORPUSCULAR HEMOGLOBIN 27.3 PG (27.0-34.0); MEAN CORPUSCULAR HGB CONC 33.4 % (32.0-36.0); MONO % 2.9 % (0.0-8.0); NEUT % 94.4 % (16.0-70.0); PLATELET COUNT 374 TH/MM3 (150-450); RED BLOOD COUNT 3.57 MIL/MM3 (4.00-5.30); WHITE BLOOD COUNT 9.4 TH/MM3 (4.0-11.0)
[2016-11-03 08:35] LABS: HEMO FLAGS AUTO DIFF
[2016-11-03] MEDS: RITONAVIR 100 MG TAB PO SCH ×2 (08:50→21:32)
[2016-11-03] MEDS: ATOVAQUONE SUSP 750 MG/5 ML UDC PO SCH (08:51)
[2016-11-03] MEDS: LACTOBACILLUS ACIDOPHILUS TAB PO SCH ×3 (08:51→17:59)
[2016-11-03] MEDS: DARUNAVIR 600 MG TAB PO SCH ×2 (08:51→21:32)
[2016-11-03] MEDS: NICOTINE 21 MG/24 HR PATCH TD SCH (08:51)
[2016-11-03] MEDS: CLARITHROMYCIN 500 MG TAB PO SCH ×2 (08:51→21:32)
[2016-11-03] MEDS: REMOVE OLD NICODERM (NICOTINE) PATCH TD SCH (08:51)
[2016-11-03] MEDS: ETHAMBUTOL HCL 400 MG TAB PO SCH (08:52)
[2016-11-03] MEDS: ONDANSETRON HCL 4 MG/2 ML VIAL IVP PRN ×2 (08:52→21:33)
[2016-11-03] MEDS: TENOFOVIR DISOPROXIL FUMARATE 300 MG TAB PO SCH (08:52)
[2016-11-03] MEDS: DOLUTEGRAVIR SODIUM 50 MG TAB PO SCH ×2 (08:52→21:32)
[2016-11-03] MEDS: SODIUM CHLORIDE 0.9% FLUSH 5 ML FLUSH FLUSH SCH ×2 (08:52→21:32)
[2016-11-03] MEDS: cefTRIAXone INJ 1,000 MG in SODIUM CHLORIDE 0.9% INJ 100 ML IV SCH (08:53)
[2016-11-03 08:54] LABS: ALKALINE PHOSPHATASE 81 U/L (45-117); ALT (GPT) 11 U/L (10-53); ANION GAP 8 MEQ/L (5-15); AST (GOT) 14 U/L (15-37); BICARBONATE 22.2 MEQ/L (21.0-32.0); BLOOD UREA NITROGEN 9 MG/DL (7-18); CHLORIDE 103 MEQ/L (98-107); GLOMERULAR FILTRATION RATE 103 ML/MIN (>89); POTASSIUM 3.3 MEQ/L (3.5-5.1); SODIUM (NA) 133 MEQ/L (136-145); TOTAL BILIRUBIN ADULT 0.2 MG/DL (0.2-1.0)
[2016-11-03] MEDS ORDERED: PNEUMOCOCCAL POLYVALENT INJ 25 MCG/0.5 ML SYR IM ONE (09:00)
[2016-11-03] MEDS ORDERED: INFLUENZA VIRUS VACCINE (QUADRIVALENT) 0.5 ML SYR IM ONE (09:00)
[2016-11-03 09:26] LABS: SCAN/DIFF AUTO DIFF CONFIRMED
[2016-11-03 09:27] LABS: HYPERSEGMENTED POLYS 1+ (NORMAL); KERATOCYTES OCC (NORMAL); PLATELET ESTIMATE SMEAR NORMAL (NORMAL); PLATELET MORPHOLOGY NORMAL (NORMAL)
--- NOTE | 2016-11-03 09:44 | PD.ONC.PN ---
Subjective Subjective Remarks Tmax 101.3 overnight. Patient resting comfortably. She states she is taking her time eating her breakfast as she has problems with her gallbladder and eating too quickly will cause pain in her abdomen. She denies current pain. She endorses several episodes of diarrhea overnight. Objective Data Date Time Temp Pulse Resp B/P Pulse Ox O2 Delivery O2 Flow Rate FiO2 11/03/16 08:11 97.4 70 20 90/61 100 11/03/16 05:56 98.9 67 18 88/56 100 11/03/16 04:35 66 11/03/16 00:40 101.3 100 18 98/62 99 11/02/16 22:10 98.9 100 18 111/74 98 11/02/16 16:00 101.0 103 20 109/70 100 11/02/16 12:00 96.4 103 20 101/62 98 Result Diagram: 11/03/1681811/03/16818 Laboratory Results Laboratory Tests Test 11/02/16 11/02/16 11/03/16 19:41 19:49 08:19 Direct Antiglobulin Test NEGATIVE ([place]) Haptoglobin 519 MG/DL Iron Level 23 MCG/DL Total Iron Binding Capacity 157 MCG/DL Percent Iron Saturation 14.7 % Transferrin 112 MG/DL Lactate Dehydrogenase 293 U/L Vitamin B12 Level 647 PG/ML White Blood Count 9.4 TH/MM3 Red Blood Count 3.57 MIL/MM3 Hemoglobin 9.8 GM/DL Hematocrit 29.2 % Mean Corpuscular Volume 81.9 FL Mean Corpuscular Hemoglobin 27.3 PG Mean Corpuscular Hemoglobin 33.4 % Concent Red Cell Distribution Width 18.0 % Platelet Count 374 TH/MM3 Mean Platelet Volume 7.4 FL Neutrophils (%) (Auto) 94.4 % Lymphocytes (%) (Auto) 2.2 % Monocytes (%) (Auto) 2.9 % Eosinophils (%) (Auto) 0.2 % Basophils (%) (Auto) 0.3 % Neutrophils # (Auto) 8.9 TH/MM3 Lymphocytes # (Auto) 0.2 TH/MM3 Monocytes # (Auto) 0.3 TH/MM3 Eosinophils # (Auto) 0.0 TH/MM3 Basophils # (Auto) 0.0 TH/MM3 CBC Comment AUTO DIFF Differential Comment AUTO DIFF CONFIRMED Hypersegmented Polys 1+ Platelet Estimate NORMAL Platelet Morphology Comment NORMAL Keratocytes OCC Sodium Level 133 MEQ/L Potassium Level 3.3 MEQ/L Chloride Level 103 MEQ/L Carbon Dioxide Level 22.2 MEQ/L Anion Gap 8 MEQ/L Blood Urea Nitrogen 9 MG/DL Creatinine 0.75 MG/DL Estimat Glomerular Filtration 103 ML/MIN Rate Random Glucose 83 MG/DL Calcium Level 7.7 MG/DL Total Bilirubin 0.2 MG/DL Aspartate Amino Transf 14 U/L (AST/SGOT) Alanine Aminotransferase 11 U/L (ALT/SGPT) Alkaline Phosphatase 81 U/L Total Protein 7.3 GM/DL Albumin 1.5 GM/DL Culture Results Microbiology Date/Time Procedure Status Source Growth 11/01/16 22:50 Aerobic Blood Culture - Preliminary Resulted Blood Peripheral NO GROWTH IN 1 DAY 11/01/16 22:50 Anaerobic Blood Culture - Preliminary Resulted Blood Peripheral NO GROWTH IN 1 DAY 11/01/16 22:55 Aerobic Blood Culture - Preliminary Resulted Blood Peripheral NO GROWTH IN 1 DAY 11/01/16 22:55 Anaerobic Blood Culture - Preliminary Resulted Blood Peripheral NO GROWTH IN 1 DAY 11/01/16 23:59 Urine Culture Received Urine Catheterized Urine Pending Administered Medications Medications (Trade) Dose Ordered Sig/Carmen Route PRN Reason Start Time Stop Time Status Last Admin Dose Admin IV Flush (NS Flush) 2 ml BID FLUSH 11/02/16 09:00 11/03/16 08:52 Ondansetron HCl (Zofran Inj) 4 mg Q6H PRN IVP NAUSEA OR VOMITING 11/02/16 01:45 11/03/16 08:52 Acetaminophen (Tylenol) 650 mg Q6H PRN PO FEVER/PAIN SCALE 1 TO 2 11/02/16 01:45 11/03/16 00:47 Atovaquone (Mepron Liq) 1,500 mg DAILY PO 11/02/16 09:00 11/03/16 08:51 Darunavir (Prezista) 600 mg BID PO 11/02/16 09:00 11/03/16 08:51 Ritonavir (Norvir) 100 mg BID PO 11/02/16 09:00 11/03/16 08:50 Tenofovir Disoproxil Fumarate 300 mg 300 mg DAILY PO 11/02/16 09:00 11/03/16 08:52 Ceftriaxone Sodium/Sodium Chloride (Rocephin Inj/NS Inj) 100 ml @ 200 mls/hr Q24H IV 11/02/16 09:00 11/03/16 08:53 Ethambutol HCl (Myambutol) 800 mg DAILY PO 11/02/16 12:00 11/03/16 08:52 Clarithromycin (Biaxin) 500 mg Q12HR PO 11/02/16 21:00 11/03/16 08:51 Lactobacillus Acidophilus (Lactinex) 1 tab TID PO 11/02/16 18:00 11/03/16 08:51 Nicotine (Habitrol 21 Mg Patch.24 Hr) 1 patch DAILY TD 11/02/16 17:00 11/03/16 08:51 Miscellaneous Information 1 HS TD 11/02/16 21:00 11/03/16 08:51 Objective Remarks GENERAL: Severely malnourished female, sitting up in bed SKIN: Warm and dry. bitemporal muscle wasting HEAD: Normocephalic. EYES: No injection or drainage. NECK: Supple, trachea midline. CARDIOVASCULAR: +S1/S2 RESPIRATORY: diminished at bases. anterior clark with occasional rhonchi GASTROINTESTINAL: Abdomen mildly distended, EXTREMITIES: No cyanosis. severe muscle wasting. NEUROLOGICAL: awake and alert, normal speech. moving all extremities. Assessment/Plan Problem List: (1) Symptomatic anemia Status: Acute Plan: --multiple factors contributing --microcytic anemia --?underlying GIB--occult blood pending --iron studies--show low TIBC, low saturation, low transferrin, mixed picture --LDH high/haptoglobin high/direct moses negative-->no evidence of hemolysis --B12/folate: WNL --hepatitis panel pending --hemoglobin electrophoresis is pending transfuse pRBC to keep hgb>7 (2) AIDS (acquired immune deficiency syndrome) Status: Chronic Plan: --on antiretroviral medications --infectious disease following --on Mepron for PCP prophylaxis (3) UTI (urinary tract infection) Status: Acute Plan: --on multiple abx--Rocephin, Biaxin --urine culture pending (4) АЛЕКСАНДР (mycobacterium avium-intracellulare) Status: Acute Plan: --ID following --on ethambutol and Biaxin --?invasion of bone marrow Assessment 41y/o female admitted with generalized weakness, fevers and severe anemia. h/o HIV/AIDS-->June 2016 her CD4 count less than 20. History of tobacco abuse. COPD Plan 1. hgb stable today--occult blood testing is pending--I asked the [employer]IAN to send today as soon as patient has a BM 2. monitor CBC 3. await hgb electrophoresis Attending Statement The exam, history, and the medical decision-making described in the above note were completed with the assistance of the mid-level provider. I reviewed and agree with the findings presented. I attest that I had a [id number] encounter with the patient on the same day, and personally performed and documented my assessment and findings in the medical record. Iron deficient. Will give IV iron. Stool Heme-occult pending. no evidence of hemolysis. B12 normal. Folate pending. Hep B and C testing negative. Has AIDS Cachexia with severe malnutrition albumin 1.5. continue supportive care. Renetta Holt Nov 03, 2016 09:44 Frank Camargo MD Nov 03, 2016 20:13
--- NOTE | 2016-11-03 12:55 | HHI.PR ---
Subjective Remarks Follow up for UTI, fevers, severe anemia. The patient denies any abdominal pain , nausea/vomiting however did have ~6 episodes of diarrhea overnight and today, denies noticing any melena/hematochezia. She does have an appetite however states she has to eat very small meals or she will get sick. She continues to have fevers overnight, Tmax 101.3. Denies dysuria or increased urinary frequency. She has no other medical complaints at this time. Objective Vitals Vital Signs Date Time Temp Pulse Resp B/P Pulse Ox O2 Delivery O2 Flow Rate FiO2 11/03/16 12:00 97.6 80 20 94/60 100 11/03/16 08:11 97.4 70 20 90/61 100 11/03/16 08:00 80 11/03/16 05:56 98.9 67 18 88/56 100 11/03/16 04:35 66 11/03/16 00:40 101.3 100 18 98/62 99 11/02/16 22:10 98.9 100 18 111/74 98 11/02/16 16:00 101.0 103 20 109/70 100 Result Diagram: 11/03/1619 11/03/16818 Imaging Last Impressions Chest X-Ray 11/01/162224 Signed Impressions: Service Date/Time: Tuesday, November 01, 2016 23:15 - CONCLUSION: No acute disease. Brant Taylor MD Objective Remarks GENERAL: Thin cachectic appearing female patient in [facility]. SKIN: Warm and dry. No rash. HEAD: Normocephalic. Atraumatic. EYES: Pupils equal and round. No scleral icterus. No injection or drainage. ENT: No nasal bleeding or discharge. Mucous membranes pink and moist. NECK: Supple. Trachea midline. CARDIOVASCULAR: Regular rate and rhythm. S1, S2 noted. No murmur appreciated. RESPIRATORY: No accessory muscle use. Clear to auscultation. Breath sounds equal bilaterally. GASTROINTESTINAL: Abdomen soft, non-tender, mild abdominal distention. Normoactive bowel sounds x4. MUSCULOSKELETAL: No obvious deformities. Extremities without clubbing, cyanosis , or edema. NEUROLOGICAL: Awake and alert. No obvious cranial nerve deficits. Motor grossly within normal limits. Normal speech. Medications and IVs Current Medications Medications (Trade) Dose Ordered Sig/Carmen Route Start Time Stop Time Status Last Admin (NS Flush) 2 ml UNSCH PRN FLUSH 11/02/16 01:45 (NS Flush) 2 ml BID FLUSH 11/02/16 09:00 11/03/16 08:52 (Zofran Inj) 4 mg Q6H PRN IVP 11/02/16 01:45 11/03/16 08:52 (Dulcolax Supp) 10 mg DAILY PRN MI 11/02/16 01:45 (Tylenol) 650 mg Q6H PRN PO 11/02/16 01:45 11/03/16 00:47 ([place] 5-325 Mg) 1 tab Q4H PRN PO 11/02/16 01:45 ([place] 10-325 Mg) 1 tab Q4H PRN PO 11/02/16 01:45 (Proair Hfa Inh) 2 puff Q6H PRN INH 11/02/16 01:45 (Mepron Liq) 1,500 mg DAILY PO 11/02/16 09:00 11/03/16 08:51 (Prezista) 600 mg BID PO 11/02/16 09:00 11/03/16 08:51 (Norvir) 100 mg BID PO 11/02/16 09:00 11/03/16 08:50 Tenofovir Disoproxil Fumarate 300 mg 300 mg DAILY PO 11/02/16 09:00 11/03/16 08:52 (Rocephin Inj/NS Inj) 100 ml @ 200 mls/hr Q24H IV 11/02/16 09:00 11/03/16 08:53 (Myambutol) 800 mg DAILY PO 11/02/16 12:00 11/03/16 08:52 (Biaxin) 500 mg Q12HR PO 11/02/16 21:00 11/03/16 08:51 (Imodium) 2 mg Q6H PRN PO 11/02/16 15:45 (Lactinex) 1 tab TID PO 11/02/16 18:00 11/03/16 13:04 (Habitrol 21 Mg Patch.24 Hr) 1 patch DAILY TD 11/02/16 17:00 11/03/16 08:51 Miscellaneous Information 1 1 HS TD 11/02/16 21:00 11/03/16 08:51 (Venofer Inj/NS Inj) 110 ml @ 110 mls/hr Q24H IV 11/03/16 13:00 11/05/16 13:59 11/03/16 13:03 (Tylenol) 650 mg Q24H PO 11/03/16 12:30 11/05/16 12:31 11/03/16 13:03 (Benadryl) 25 mg Q24H PO 11/03/16 12:30 11/05/16 12:31 11/03/16 13:03 (Tucks Pads) 1 applic Q6HR PRN TOPICAL 11/03/16 13:00 Urinary Catheter: No Vascular Central Line Catheter: No A/P Problem List: (1) Anemia ICD Code: D64.9 Status: Acute (2) Hypokalemia ICD Code: E87.6 Status: Acute (3) UTI (urinary tract infection) ICD Code: N39.0 Status: Acute (4) AIDS (acquired immune deficiency syndrome) ICD Code: B20 Status: Chronic Assessment and Plan 41-year-old female with a PMH of HIV/AIDS (CD4 <20 on 07/14/16), Non-Compliance , COPD and Anemia who presented to the ER with complaints of generalized weakness x3-4 days. Severe Symptomatic Microcytic Anemia: c/o generalized weakness/fatigue x2-3 days. Hgb 5.7, no active bleeding, hemoccult negative. S/p 2u pRBC transfusion. Repeat Hgb 9.8 today. Telemetry. Iron panel with low TIBC/ saturation/transferrin. Transfuse to keep Hgb >7.0. Consult Hematology, appreciate assistance. Give IV Venofer qd. Sepsis: WBC 12.9K, tachycardic, with Tmax 102.2. Lactic acid 1.1. Suspect secondary to UTI, on IV Rocephin. 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 Consulted infectious disease. Started the patient on ethambutol and Biaxin. HIV/AIDS: w/ Non-compliance. CD4 <20 on 07/14/16, resume HAART, Atovaquone. Infectious disease on board. CXR w/ no acute findings, images reviewed by me. UTI: U/a w/ UTI, WBC normal however elevated neutrophil, +temp at home. S/p Blood Cultures, Vanc/Zosyn in ER, now on IV Rocephin. Urine culture with Corynebacterium. Hypokalemia: K+ 3.1, replaced, still 3.3 today, given additional po KCl replacement. 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 Consult marketing support specialist. DVT Prophylaxis: teds/SCDs Written by Estella Cr, acting as scribe for Dr. Whitaker on 11/03/16 at 12:55. The documentation accurately reflects the work performed [id number] by co Dr. Whitaker on 11/03/16 at 12:55. Estella Cr PA-C Nov 03, 2016 12:55 Carmen Whitaker MD Nov 03, 2016 17:10
[2016-11-03] MEDS ORDERED: WITCH HAZEL 50%/GLYCERIN 12.5% 40 PAD JAR TOPICAL PRN (13:00)
--- NOTE | 2016-11-03 13:00 | HHI.IDPN ---
Subjective Subjective Remarks Notes reviewed Last fever at midnight C/S reviewed WBC better Antibiotics Rocephin Biaxin EMB HAART Mepron Lines PIV Past Medical History HIV, AIDS on the basis of very low CD4 count and АЛЕКСАНДР in the blood culture Hypertension COPD GERD Past Surgical History History of esophageal dilatation and EGD as well as colonoscopy Allergies: Coded Allergies: Cipro (Verified Allergy, Severe, HIVES, 11/01/16) Contrast Media (Verified Allergy, Severe, Hives, 11/01/16) Iodide Tincture (Verified Allergy, Severe, HIVES, 11/01/16) Lisinopril (Unverified Allergy, Severe, Swelling, 11/01/16) Wellbutrin (Verified Allergy, Severe, HIVES, 11/01/16) *MDRO Multi-Drug Resistant Organism (Verified Allergy, Unknown, 11/01/16) MRSA 2009 leg wound Objective . Vital Signs Date Time Temp Pulse Resp B/P Pulse Ox O2 Delivery O2 Flow Rate FiO2 11/03/16 12:00 97.6 80 20 94/60 100 11/03/16 08:11 97.4 70 20 90/61 100 11/03/16 08:00 80 11/03/16 05:56 98.9 67 18 88/56 100 11/03/16 04:35 66 11/03/16 00:40 101.3 100 18 98/62 99 11/02/16 22:10 98.9 100 18 111/74 98 11/02/16 16:00 101.0 103 20 109/70 100 . Laboratory Tests Test 11/01/16 11/02/16 11/02/16 11/03/16 22:50 09:27 19:49 08:19 White Blood Count 9.0 TH/MM3 12.9 TH/MM3 9.4 TH/MM3 Red Blood Count 2.21 MIL/MM3 3.45 MIL/MM3 3.57 MIL/MM3 Hemoglobin 5.7 GM/DL 9.4 GM/DL 9.8 GM/DL Hematocrit 16.8 % 28.2 % 29.2 % Mean Corpuscular Volume 76.2 FL 81.6 FL 81.9 FL Mean Corpuscular Hemoglobin 25.7 PG 27.2 PG 27.3 PG Mean Corpuscular Hemoglobin 33.8 % 33.3 % 33.4 % Concent Red Cell Distribution Width 21.3 % 18.1 % 18.0 % Platelet Count 430 TH/MM3 382 TH/MM3 374 TH/MM3 Mean Platelet Volume 7.9 FL 7.4 FL 7.4 FL Neutrophils (%) (Auto) % 92.3 % 94.4 % Lymphocytes (%) (Auto) % 2.4 % 2.2 % Monocytes (%) (Auto) % 4.7 % 2.9 % Eosinophils (%) (Auto) % 0.2 % 0.2 % Basophils (%) (Auto) % 0.4 % 0.3 % Neutrophils # (Auto) TH/MM3 12.0 TH/MM3 8.9 TH/MM3 Lymphocytes # (Auto) TH/MM3 0.3 TH/MM3 0.2 TH/MM3 Monocytes # (Auto) TH/MM3 0.6 TH/MM3 0.3 TH/MM3 Eosinophils # (Auto) TH/MM3 0.0 TH/MM3 0.0 TH/MM3 Basophils # (Auto) TH/MM3 0.0 TH/MM3 0.0 TH/MM3 CBC Comment AUTO DIFF AUTO DIFF AUTO DIFF Differential Total Cells 100 100 Counted Neutrophils % (Manual) 94 % 90 % Band Neutrophils % 3 % 6 % Lymphocytes % 2 % 1 % Monocytes % 1 % 2 % Neutrophils # (Manual) 8.7 TH/MM3 12.4 TH/MM3 Differential Comment FINAL DIFF FINAL DIFF AUTO DIFF MANUAL MANUAL CONFIRMED Toxic Vacuolation PRESENT Platelet Estimate NORMAL NORMAL NORMAL Platelet Morphology Comment NORMAL NORMAL NORMAL Basophilic Stippling FAINT Spherocytes OCC Basophils % 1 % Hypersegmented Polys 1+ 1+ Haptoglobin 519 MG/DL Keratocytes OCC Laboratory Tests Test 11/01/16 11/01/16 11/02/16 11/02/16 22:50 22:55 09:27 19:49 Sodium Level 132 MEQ/L 134 MEQ/L Potassium Level 3.1 MEQ/L 4.1 MEQ/L Chloride Level 99 MEQ/L 105 MEQ/L Carbon Dioxide Level 22.1 MEQ/L 23.5 MEQ/L Anion Gap 11 MEQ/L 6 MEQ/L Blood Urea Nitrogen 12 MG/DL 11 MG/DL Creatinine 0.71 MG/DL 0.79 MG/DL Estimat Glomerular Filtration 110 ML/MIN 97 ML/MIN Rate Random Glucose 129 MG/DL 76 MG/DL Calcium Level 8.0 MG/DL 7.8 MG/DL Magnesium Level 1.6 MG/DL Total Bilirubin 0.1 MG/DL 0.2 MG/DL Aspartate Amino Transf 15 U/L 15 U/L (AST/SGOT) Alanine Aminotransferase 13 U/L 11 U/L (ALT/SGPT) Alkaline Phosphatase 90 U/L 80 U/L Total Creatine Kinase 31 U/L Troponin I LESS THAN 0.02 NG/ML Total Protein 8.0 GM/DL 7.4 GM/DL Albumin 1.7 GM/DL 1.5 GM/DL Lipase 288 U/L Lactic Acid Level 1.1 mmol/L Iron Level 23 MCG/DL Total Iron Binding Capacity 157 MCG/DL Percent Iron Saturation 14.7 % Transferrin 112 MG/DL Lactate Dehydrogenase 293 U/L Vitamin B12 Level 647 PG/ML Test 11/03/16 08:19 Sodium Level 133 MEQ/L Potassium Level 3.3 MEQ/L Chloride Level 103 MEQ/L Carbon Dioxide Level 22.2 MEQ/L Anion Gap 8 MEQ/L Blood Urea Nitrogen 9 MG/DL Creatinine 0.75 MG/DL Estimat Glomerular Filtration 103 ML/MIN Rate Random Glucose 83 MG/DL Calcium Level 7.7 MG/DL Total Bilirubin 0.2 MG/DL Aspartate Amino Transf 14 U/L (AST/SGOT) Alanine Aminotransferase 11 U/L (ALT/SGPT) Alkaline Phosphatase 81 U/L Total Protein 7.3 GM/DL Albumin 1.5 GM/DL Microbiology Date/Time Procedure Status Source Growth 11/01/16 22:50 Aerobic Blood Culture - Preliminary Resulted Blood Peripheral NO GROWTH IN 2 DAYS 11/01/16 22:50 Anaerobic Blood Culture - Preliminary Resulted Blood Peripheral NO GROWTH IN 2 DAYS 11/01/16 22:55 Aerobic Blood Culture - Preliminary Resulted Blood Peripheral NO GROWTH IN 2 DAYS 11/01/16 22:55 Anaerobic Blood Culture - Preliminary Resulted Blood Peripheral NO GROWTH IN 2 DAYS 11/01/16 23:59 Urine Culture Received Urine Catheterized Urine Pending 11/03/16 10:46 Stool Occult Blood (LAURIE) - Final Complete Stool Stool HEMOCCULT NEGATIVE Imaging Last Impressions Chest X-Ray 11/01/162224 Signed Impressions: Service Date/Time: Tuesday, November 01, 2016 23:15 - CONCLUSION: No acute disease. Brant Taylor MD Physical Exam GENERAL: cachectic female, looks chronically ill appearing, NAD SKIN: Warm and dry, no generalized rash. HEENT: [place] conjunctivae, no petechia or hemorrhage. No scleral icterus. No injection or drainage. Moist oral mucosa, no oral thrush. NECK: Trachea midline. No JVD. Has cervical lymphadenopathy. Supple, nontender , no meningeal signs. CARDIOVASCULAR: Regular rate and rhythm without murmurs, gallops, or rubs. RESPIRATORY: Clear to auscultation. Breath sounds equal bilaterally. No wheezes , rales, or rhonchi. GASTROINTESTINAL: Abdomen soft, non-tender, distended, all sounds are present and normoactive. No guarding. MUSCULOSKELETAL: Extremities without clubbing, cyanosis, or edema. No joint effusion, or edema noted. No calf tenderness. Negative Homans sign bilaterally. 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
[2016-11-03] MEDS: IRON SUCROSE INJ 200 MG in SODIUM CHLORIDE 0.9% INJ 100 ML IV SCH (13:03)
[2016-11-03] MEDS: ACETAMINOPHEN 325 MG TAB PO SCH (13:03)
[2016-11-03] MEDS: diphenhydrAMINE HCL 25 MG CAP PO SCH (13:03)
[2016-11-03 14:41] LABS: HEMOGLOBIN ELECTROPHORESIS ADULT NORMAL HGB
[2016-11-03] MEDS: ACETAMINOPHEN/HYDROcodone 325 MG/10 MG TAB PO PRN (21:52)
[2016-11-04] VITALS (7 sets, daily range): BP systolic 95–113; BP diastolic 61–72; PULSE 70–100; RESP 16–17; TEMP 96.2–98; O2SAT 92–100
[2016-11-04] MEDS: cefTRIAXone INJ 1,000 MG in SODIUM CHLORIDE 0.9% INJ 100 ML IV SCH (08:32)
[2016-11-04] MEDS: NICOTINE 21 MG/24 HR PATCH TD SCH (08:33)
[2016-11-04] MEDS: LACTOBACILLUS ACIDOPHILUS TAB PO SCH ×3 (08:33→18:32)
[2016-11-04] MEDS: ACETAMINOPHEN/HYDROcodone 325 MG/10 MG TAB PO PRN ×3 (08:34→18:33)
[2016-11-04] MEDS: ATOVAQUONE SUSP 750 MG/5 ML UDC PO SCH (09:00)
[2016-11-04] MEDS: SODIUM CHLORIDE 0.9% FLUSH 5 ML FLUSH FLUSH SCH ×2 (09:00→21:45)
[2016-11-04] MEDS: DARUNAVIR 600 MG TAB PO SCH ×2 (09:00→21:45)
[2016-11-04] MEDS: RITONAVIR 100 MG TAB PO SCH ×2 (09:00→21:45)
[2016-11-04] MEDS: CLARITHROMYCIN 500 MG TAB PO SCH ×2 (09:00→21:45)
[2016-11-04] MEDS: ETHAMBUTOL HCL 400 MG TAB PO SCH (09:00)
[2016-11-04] MEDS: TENOFOVIR DISOPROXIL FUMARATE 300 MG TAB PO SCH (09:00)
[2016-11-04] MEDS: DOLUTEGRAVIR SODIUM 50 MG TAB PO SCH ×2 (09:00→21:45)
[2016-11-04 10:54] LABS: AUTOMATED NEUTROPHIL # 8.5 TH/MM3 (1.8-7.7); BASOPHIL % 0.1 % (0.0-2.0); EOSINOPHIL % 0.3 % (0.0-4.0); HEMATOCRIT 27.1 % (35.0-46.0); LYMPH % 1.8 % (9.0-44.0); LYMPHOCYTE # 0.2 TH/MM3 (1.0-4.8); MEAN CORPUSCULAR HEMOGLOBIN 27.4 PG (27.0-34.0); MONO % 2.9 % (0.0-8.0); NEUT % 94.9 % (16.0-70.0); PLATELET COUNT 391 TH/MM3 (150-450); RED BLOOD COUNT 3.27 MIL/MM3 (4.00-5.30); RED CELL DISTRIBUTION WIDTH 18.3 % (11.6-17.2); WHITE BLOOD COUNT 8.9 TH/MM3 (4.0-11.0)
[2016-11-04 11:00] LABS: HEMO FLAGS AUTO DIFF
[2016-11-04 11:33] LABS: BANDS 4 % (0-6); EOSINOPHILS 2 % (0-4); HYPERSEGMENTED POLYS 1+ (NORMAL); NEUTROPHIL # MANUAL DIFF 8.6 TH/MM3 (1.8-7.7); POLYS (SEG NEUTROPHILS) 93 % (16-70); WBC DIFF SAMPLE 100
[2016-11-04 11:34] LABS: PLATELET ESTIMATE SMEAR NORMAL (NORMAL); PLATELET MORPHOLOGY NORMAL (NORMAL); SCAN/DIFF FINAL DIFF MANUAL
--- NOTE | 2016-11-04 12:50 | PD.ONC.PN ---
Subjective Subjective Remarks Afebrile overnight. Patient resting comfortably. She ate breakfast this AM. She denies pain. She states she feels well today. Objective Data Date Time Temp Pulse Resp B/P Pulse Ox O2 Delivery O2 Flow Rate FiO2 11/04/16 12:00 97.1 94 16 95/67 92 11/04/16 08:00 98.0 82 16 97/63 92 11/04/16 04:00 97.1 84 16 97/61 100 11/04/16 01:25 85 11/04/16 00:00 96.2 75 16 97/72 99 11/03/16 21:12 99.0 97 18 109/76 95 11/03/16 15:59 98.0 63 20 99/61 93 Result Diagram: 11/04/16 1014 11/03/16 0819 Laboratory Results Laboratory Tests Test 11/04/16 10:14 White Blood Count 8.9 TH/MM3 Red Blood Count 3.27 MIL/MM3 Hemoglobin 8.9 GM/DL Hematocrit 27.1 % Mean Corpuscular Volume 83.0 FL Mean Corpuscular Hemoglobin 27.4 PG Mean Corpuscular Hemoglobin 33.0 % Concent Red Cell Distribution Width 18.3 % Platelet Count 391 TH/MM3 Mean Platelet Volume 7.8 FL Neutrophils (%) (Auto) 94.9 % Lymphocytes (%) (Auto) 1.8 % Monocytes (%) (Auto) 2.9 % Eosinophils (%) (Auto) 0.3 % Basophils (%) (Auto) 0.1 % Neutrophils # (Auto) 8.5 TH/MM3 Lymphocytes # (Auto) 0.2 TH/MM3 Monocytes # (Auto) 0.3 TH/MM3 Eosinophils # (Auto) 0.0 TH/MM3 Basophils # (Auto) 0.0 TH/MM3 CBC Comment AUTO DIFF Differential Total Cells 100 Counted Neutrophils % (Manual) 93 % Band Neutrophils % 4 % Monocytes % 1 % Eosinophils % 2 % Neutrophils # (Manual) 8.6 TH/MM3 Differential Comment FINAL DIFF MANUAL Hypersegmented Polys 1+ Platelet Estimate NORMAL Platelet Morphology Comment NORMAL Culture Results Microbiology Date/Time Procedure Status Source Growth 11/01/16 22:50 Aerobic Blood Culture - Preliminary Resulted Blood Peripheral NO GROWTH IN 3 DAYS 11/01/16 22:50 Anaerobic Blood Culture - Preliminary Resulted Blood Peripheral NO GROWTH IN 3 DAYS 11/01/16 22:55 Aerobic Blood Culture - Preliminary Resulted Blood Peripheral NO GROWTH IN 3 DAYS 11/01/16 22:55 Anaerobic Blood Culture - Preliminary Resulted Blood Peripheral NO GROWTH IN 3 DAYS 11/01/16 23:59 Urine Culture - Final Complete Urine Catheterized Urine Corynebacterium Sp 11/03/16 10:46 Stool Occult Blood (LAURIE) - Final Complete Stool Stool HEMOCCULT NEGATIVE Administered Medications Medications (Trade) Dose Ordered Sig/Carmen Route PRN Reason Start Time Stop Time Status Last Admin Dose Admin IV Flush (NS Flush) 2 ml BID FLUSH 11/02/16 09:00 11/03/16 21:32 Ondansetron HCl (Zofran Inj) 4 mg Q6H PRN IVP NAUSEA OR VOMITING 11/02/16 01:45 11/03/16 21:33 Acetaminophen (Tylenol) 650 mg Q6H PRN PO FEVER/PAIN SCALE 1 TO 2 11/02/16 01:45 11/03/16 00:47 Acetaminophen/ Hydrocodone Bitart ([place] 10-325 Mg) 1 tab Q4H PRN PO PAIN SCALE 6 TO 10 11/02/16 01:45 11/04/16 08:34 Atovaquone (Mepron Liq) 1,500 mg DAILY PO 11/02/16 09:00 11/03/16 08:51 Darunavir (Prezista) 600 mg BID PO 11/02/16 09:00 11/03/16 21:32 Ritonavir (Norvir) 100 mg BID PO 11/02/16 09:00 11/03/16 21:32 Tenofovir Disoproxil Fumarate 300 mg 300 mg DAILY PO 11/02/16 09:00 11/03/16 08:52 Ceftriaxone Sodium/Sodium Chloride (Rocephin Inj/NS Inj) 100 ml @ 200 mls/hr Q24H IV 11/02/16 09:00 11/04/16 08:32 Ethambutol HCl (Myambutol) 800 mg DAILY PO 11/02/16 12:00 11/03/16 08:52 Clarithromycin (Biaxin) 500 mg Q12HR PO 11/02/16 21:00 11/03/16 21:32 Lactobacillus Acidophilus (Lactinex) 1 tab TID PO 11/02/16 18:00 11/04/16 08:33 Nicotine (Habitrol 21 Mg Patch.24 Hr) 1 patch DAILY TD 11/02/16 17:00 11/04/16 08:33 Miscellaneous Information 1 1 HS TD 11/02/16 21:00 11/03/16 08:51 Iron Sucrose/ Sodium Chloride (Venofer Inj/NS Inj) 110 ml @ 110 mls/hr Q24H IV 11/03/16 13:00 11/05/16 13:59 11/03/16 13:03 Acetaminophen (Tylenol) 650 mg Q24H PO 11/03/16 12:30 11/05/16 12:31 11/03/16 13:03 Diphenhydramine HCl (Benadryl) 25 mg Q24H PO 11/03/16 12:30 11/05/16 12:31 11/03/16 13:03 Witch Saray/ Glycerin (Tucks Pads) 1 applic Q6HR PRN TOPICAL HEMORRHOIDS 11/03/16 13:00 11/03/16 17:59 Objective Remarks GENERAL: Pleasant, cachetic female, sitting up in bed SKIN: Warm and dry. bitemporal muscle wasting HEAD: Normocephalic. EYES: No injection or drainage. NECK: Supple, trachea midline. CARDIOVASCULAR: +S1/S2 RESPIRATORY: diminished at bases. occasional rhonchi GASTROINTESTINAL: Abdomen mildly distended, EXTREMITIES: generalized muscle wasting. NEUROLOGICAL: AO x 3. moving all extremities. Assessment/Plan Problem List: (1) Symptomatic anemia Status: Acute Plan: --multiple factors contributing --microcytic anemia --Hemoccult negative --iron studies--show low TIBC, low saturation, low transferrin-->will give IV iron --LDH high/haptoglobin high/direct moses negative-->no evidence of hemolysis --B12/folate: WNL --hepatitis panel negative --hemoglobin electrophoresis is normal transfuse pRBC to keep hgb>7 (2) AIDS (acquired immune deficiency syndrome) Status: Chronic Plan: --on antiretroviral medications --infectious disease following --on Mepron for PCP prophylaxis (3) UTI (urinary tract infection) Status: Acute Plan: --on multiple abx--Rocephin, Biaxin --urine culture shows corynebacterium. (4) АЛЕКСАНДР (mycobacterium avium-intracellulare) Status: Acute Plan: --ID following --on ethambutol and Biaxin --?invasion of bone marrow Assessment 41y/o female admitted with generalized weakness, fevers and severe anemia. h/o HIV/AIDS-->June 2016 her CD4 count less than 20. History of tobacco abuse. COPD Plan 1. IV iron today 2. monitor CBC 3. supportive care Attending Statement The exam, history, and the medical decision-making described in the above note were completed with the assistance of the mid-level provider. I reviewed and agree with the findings presented. I attest that I had a [id number] encounter with the patient on the same day, and personally performed and documented my assessment and findings in the medical record. tolerating iron infusions. anemia due to HIV/AIDS and iron deficiency. Renetta Holt Nov 04, 2016 12:50 Frank Camargo MD Nov 04, 2016 21:45
--- NOTE | 2016-11-04 14:06 | HHI.PR ---
Subjective Remarks Feeling better. States that she does not tolerate ensure however will drink the chocolate boost. She is getting up and walking to the bathroom and feels stronger with treatment. Objective Vitals Vital Signs Date Time Temp Pulse Resp B/P Pulse Ox O2 Delivery O2 Flow Rate FiO2 11/04/16 12:00 97.1 94 16 95/67 92 11/04/16 08:00 98.0 82 16 97/63 92 11/04/16 04:00 97.1 84 16 97/61 100 11/04/16 01:25 85 11/04/16 00:00 96.2 75 16 97/72 99 11/03/16 21:12 99.0 97 18 109/76 95 11/03/16 15:59 98.0 63 20 99/61 93 Result Diagram: 11/04/16 1014 11/03/16 0819 Objective Remarks GENERAL: This is a well-nourished, well-developed patient, in no apparent distress. CARDIOVASCULAR: Regular rate and rhythm RESPIRATORY: Clear to auscultation. Breath sounds equal bilaterally. No wheezes , rales, or rhonchi. GASTROINTESTINAL: Abdomen soft, non-tender, nondistended. Normal active bowel sounds MUSCULOSKELETAL: Extremities without clubbing, cyanosis, or edema. NEURO: Alert & Oriented x4 to person, place, time, situation. Moves all ext x4 A/P Problem List: (1) Anemia ICD Code: D64.9 Status: Acute (2) Hypokalemia ICD Code: E87.6 Status: Acute (3) UTI (urinary tract infection) ICD Code: N39.0 Status: Acute (4) AIDS (acquired immune deficiency syndrome) ICD Code: B20 Status: Chronic Assessment and Plan 41-year-old female with a past medical history of of HIV/AIDS (CD4 <20 on 07/14), Non-Compliance, COPD and Anemia who presented to the ER with complaints of generalized weakness x3-4 days. Severe Symptomatic Microcytic Anemia: c/o generalized weakness/fatigue x2-3 days. Hgb 5.7, no active bleeding, hemoccult negative. S/p 2u pRBC transfusion. Repeat Hgb 8.9 today. Will discontinue Telemetry as patient has been stable. Iron panel with low TIBC/saturation/transferrin. Transfuse to keep Hgb >7.0. Hematology following. IV iron per hematology recommendations. Sepsis on presentation : WBC 12.9K, tachycardic, with Tmax 102.2. Lactic acid 1.1. Suspect secondary to UTI, on IV Rocephin. 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 Appreciate infectious disease recommendations. Started the patient on ethambutol and Biaxin. HIV/AIDS: w/ Non-compliance. CD4 <20 on 07/14/16, resume HAART, Atovaquone. Infectious disease following patients. UTI: U/a w/ UTI, WBC normal however elevated neutrophil, +temp at home. S/p Blood Cultures, received Vanco/Zosyn in ER, now on IV Rocephin. Urine culture with Corynebacterium. Await final recommendations from infectious disease. Hypokalemia: Replete, monitor. 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 Consult wrapper counter. Boost supplements with meal. DVT Prophylaxis: teds/SCDs Evelyn Starks MD Nov 04, 2016 14:06
[2016-11-04] MEDS: diphenhydrAMINE HCL 25 MG CAP PO SCH (15:09)
[2016-11-04] MEDS: ACETAMINOPHEN 325 MG TAB PO SCH (15:10)
[2016-11-04] MEDS: IRON SUCROSE INJ 200 MG in SODIUM CHLORIDE 0.9% INJ 100 ML IV SCH (16:43)
[2016-11-04] MEDS: ONDANSETRON HCL 4 MG/2 ML VIAL IVP PRN ×2 (16:44→21:44)
[2016-11-04] MEDS: REMOVE OLD NICODERM (NICOTINE) PATCH TD SCH (21:00)
[2016-11-04] MEDS: ACETAMINOPHEN/HYDROcodone 325 MG/5 MG TAB PO PRN (21:44)
[2016-11-05] VITALS: BP 120/83; PULSE 77; RESP 17; TEMP 97.2; O2SAT 98
[2016-11-05 04:00] VITALS: BP 96/65; PULSE 68; RESP 17; TEMP 97; O2SAT 95
[2016-11-05] MEDS: ACETAMINOPHEN/HYDROcodone 325 MG/5 MG TAB PO PRN (05:59)
[2016-11-05 07:50] VITALS: BP 104/64; PULSE 64; RESP 20; TEMP 94.1; O2SAT 99
[2016-11-05] MEDS: cefTRIAXone INJ 1,000 MG in SODIUM CHLORIDE 0.9% INJ 100 ML IV SCH (09:26)
[2016-11-05] MEDS: NICOTINE 21 MG/24 HR PATCH TD SCH (09:26)
[2016-11-05] MEDS: SODIUM CHLORIDE 0.9% FLUSH 5 ML FLUSH FLUSH SCH ×2 (09:26→21:51)
[2016-11-05] MEDS: ETHAMBUTOL HCL 400 MG TAB PO SCH (10:22)
[2016-11-05] MEDS: CLARITHROMYCIN 500 MG TAB PO SCH ×2 (10:22→22:19)
[2016-11-05] MEDS: DOLUTEGRAVIR SODIUM 50 MG TAB PO SCH ×2 (10:22→22:19)
[2016-11-05] MEDS: ATOVAQUONE SUSP 750 MG/5 ML UDC PO SCH (10:22)
[2016-11-05] MEDS: LACTOBACILLUS ACIDOPHILUS TAB PO SCH ×3 (10:22→19:14)
[2016-11-05] MEDS: DARUNAVIR 600 MG TAB PO SCH ×2 (10:22→22:19)
[2016-11-05] MEDS: RITONAVIR 100 MG TAB PO SCH ×2 (10:23→22:19)
[2016-11-05] MEDS: TENOFOVIR DISOPROXIL FUMARATE 300 MG TAB PO SCH (10:23)
--- NOTE | 2016-11-05 11:20 | PD.ONC.PN ---
Subjective Subjective Remarks Afebrile overnight. patient resting. She states she is very tired today and her hands are cold. She felt lightheaded when she got up and walked to the bathroom earlier today. Objective Data Date Time Temp Pulse Resp B/P Pulse Ox O2 Delivery O2 Flow Rate FiO2 11/05/16 07:50 94.1 64 20 104/64 99 11/05/16 07:29 16 11/05/16 04:00 97.0 68 17 96/65 95 11/05/16 00:00 97.2 77 17 120/83 98 11/04/16 20:00 97.9 70 17 113/71 100 11/04/16 16:00 98.0 100 16 97/70 92 11/04/16 12:00 97.1 94 16 95/67 92 Result Diagram: 11/04/16 1014 11/03/16 0819 Laboratory Results Laboratory Tests Test 11/04/16 15:15 Nasal Screen MRSA (PCR) NEGATIVE Culture Results Microbiology Date/Time Procedure Status Source Growth 11/03/16 10:46 Stool Occult Blood (LAURIE) - Final Complete Stool Stool HEMOCCULT NEGATIVE Administered Medications Medications (Trade) Dose Ordered Sig/Carmen Route PRN Reason Start Time Stop Time Status Last Admin Dose Admin IV Flush (NS Flush) 2 ml BID FLUSH 11/02/16 09:00 11/05/16 09:26 Ondansetron HCl (Zofran Inj) 4 mg Q6H PRN IVP NAUSEA OR VOMITING 11/02/16 01:45 11/04/16 21:44 Acetaminophen (Tylenol) 650 mg Q6H PRN PO FEVER/PAIN SCALE 1 TO 2 11/02/16 01:45 11/03/16 00:47 Acetaminophen/ Hydrocodone Bitart ([place] 5-325 Mg) 1 tab Q4H PRN PO PAIN SCALE 3 TO 5 11/02/16 01:45 11/05/16 05:59 Acetaminophen/ Hydrocodone Bitart ([place] 10-325 Mg) 1 tab Q4H PRN PO PAIN SCALE 6 TO 10 11/02/16 01:45 11/04/16 18:33 Atovaquone (Mepron Liq) 1,500 mg DAILY PO 11/02/16 09:00 11/05/16 10:22 Darunavir (Prezista) 600 mg BID PO 11/02/16 09:00 11/05/16 10:22 Ritonavir (Norvir) 100 mg BID PO 11/02/16 09:00 11/05/16 10:23 Tenofovir Disoproxil Fumarate 300 mg 300 mg DAILY PO 11/02/16 09:00 11/05/16 10:23 Ceftriaxone Sodium/Sodium Chloride (Rocephin Inj/NS Inj) 100 ml @ 200 mls/hr Q24H IV 11/02/16 09:00 11/05/16 09:26 Ethambutol HCl (Myambutol) 800 mg DAILY PO 11/02/16 12:00 11/05/16 10:22 Clarithromycin (Biaxin) 500 mg Q12HR PO 11/02/16 21:00 11/05/16 10:22 Lactobacillus Acidophilus (Lactinex) 1 tab TID PO 11/02/16 18:00 11/05/16 10:22 Nicotine (Habitrol 21 Mg Patch.24 Hr) 1 patch DAILY TD 11/02/16 17:00 11/05/16 09:26 Miscellaneous Information 1 1 HS TD 11/02/16 21:00 11/04/16 21:00 Iron Sucrose/ Sodium Chloride (Venofer Inj/NS Inj) 110 ml @ 110 mls/hr Q24H IV 11/03/16 13:00 11/05/16 13:59 11/04/16 16:43 Acetaminophen (Tylenol) 650 mg Q24H PO 11/03/16 12:30 11/05/16 12:31 11/04/16 15:10 Diphenhydramine HCl (Benadryl) 25 mg Q24H PO 11/03/16 12:30 11/05/16 12:31 11/04/16 15:09 Witch Saray/ Glycerin (Tucks Pads) 1 applic Q6HR PRN TOPICAL HEMORRHOIDS 11/03/16 13:00 11/03/16 17:59 Objective Remarks GENERAL: Malnourished chronically ill appearing female, sitting up in bed in nad. SKIN: Warm and dry. HEAD: Normocephalic. EYES: No injection or drainage. NECK: Supple, trachea midline. CARDIOVASCULAR: +S1/S2 RESPIRATORY: diminished at bases. anterior clark clear. GASTROINTESTINAL: Abdomen mildly distended, EXTREMITIES: generalized muscle wasting. NEUROLOGICAL: awake and alert, normal speech. moving extremities. Assessment/Plan Problem List: (1) Symptomatic anemia Status: Acute Plan: --multiple factors contributing --microcytic anemia --Hemoccult negative --iron studies--show low TIBC, low saturation, low transferrin-->will give IV iron x 3bags --LDH high/haptoglobin high/direct Akosua negative-->no evidence of hemolysis --B12/folate: WNL --hepatitis panel negative --hemoglobin electrophoresis is normal transfuse pRBC to keep hgb>7 (2) AIDS (acquired immune deficiency syndrome) Status: Chronic Plan: --on antiretroviral medications --infectious disease following --on Mepron for PCP prophylaxis (3) UTI (urinary tract infection) Status: Acute Plan: --on multiple abx--Rocephin, Biaxin --urine culture shows corynebacterium. (4) АЛЕКСАНДР (mycobacterium avium-intracellulare) Status: Acute Plan: --ID following --on ethambutol and Biaxin --?invasion of bone marrow Assessment 41y/o female admitted with generalized weakness, fevers and severe anemia. h/o HIV/AIDS-->June 2016 her CD4 count less than 20. History of tobacco abuse. COPD Plan 1. await CBC today 2. continue IV iron. 3. continue supportive care. Attending Statement The exam, history, and the medical decision-making described in the above note were completed with the assistance of the mid-level provider. I reviewed and agree with the findings presented. I attest that I had a [id number] encounter with the patient on the same day, and personally performed and documented my assessment and findings in the medical record. Renetta Holt Nov 05, 2016 11:20 Frank Camargo MD Nov 06, 2016 13:21
[2016-11-05 11:30] VITALS: BP 114/67; PULSE 66; RESP 20; TEMP 95.1; O2SAT 100
[2016-11-05 12:41] LABS: BASOPHIL % 0.1 % (0.0-2.0); EOSINOPHIL # 0.1 TH/MM3 (0-0.4); EOSINOPHIL % 0.9 % (0.0-4.0); LYMPHOCYTE # 0.2 TH/MM3 (1.0-4.8); MEAN CELL VOLUME 83.5 FL (80.0-100.0); MEAN CORPUSCULAR HEMOGLOBIN 26.9 PG (27.0-34.0); MEAN CORPUSCULAR HGB CONC 32.2 % (32.0-36.0); PLATELET COUNT 382 TH/MM3 (150-450); WHITE BLOOD COUNT 8.5 TH/MM3 (4.0-11.0)
[2016-11-05 12:43] LABS: HEMO FLAGS AUTO DIFF
[2016-11-05 13:19] LABS: BANDS 2 % (0-6); METAMYELOCYTES 1 % (0-1); NEUTROPHIL # MANUAL DIFF 8.4 TH/MM3 (1.8-7.7); POLYS (SEG NEUTROPHILS) 96 % (16-70); WBC DIFF SAMPLE 100
[2016-11-05] MEDS: diphenhydrAMINE HCL 25 MG CAP PO SCH (13:20)
[2016-11-05] MEDS: ACETAMINOPHEN 325 MG TAB PO SCH (13:20)
[2016-11-05 13:21] LABS: HYPERSEGMENTED POLYS 1+ (NORMAL); PLATELET ESTIMATE SMEAR NORMAL (NORMAL); PLATELET MORPHOLOGY NORMAL (NORMAL)
[2016-11-05 13:22] LABS: SCAN/DIFF FINAL DIFF MANUAL
--- NOTE | 2016-11-05 14:11 | HHI.IDPN ---
Subjective Subjective Remarks Notes reviewed Afebrile C/S reviewed WBC better Antibiotics Rocephin Biaxin EMB HAART Mepron Lines PIV Past Medical History HIV, AIDS on the basis of very low CD4 count and АЛЕКСАНДР in the blood culture Hypertension COPD GERD Past Surgical History History of esophageal dilatation and EGD as well as colonoscopy Allergies: Coded Allergies: Cipro (Verified Allergy, Severe, HIVES, 11/01/16) Contrast Media (Verified Allergy, Severe, Hives, 11/01/16) Iodide Tincture (Verified Allergy, Severe, HIVES, 11/01/16) Lisinopril (Unverified Allergy, Severe, Swelling, 11/01/16) Wellbutrin (Verified Allergy, Severe, HIVES, 11/01/16) *MDRO Multi-Drug Resistant Organism (Verified Adverse Reaction, Unknown, ) MRSA (leg wound) - 2008 MRSA PCR Screen #1 NEGATIVE - 11/04/16 Objective . Vital Signs Date Time Temp Pulse Resp B/P Pulse Ox O2 Delivery O2 Flow Rate FiO2 11/05/16 07:50 94.1 64 20 104/64 99 11/05/16 07:29 16 11/05/16 04:00 97.0 68 17 96/65 95 11/05/16 00:00 97.2 77 17 120/83 98 11/04/16 20:00 97.9 70 17 113/71 100 11/04/16 16:00 98.0 100 16 97/70 92 11/04/16 11/04/16 11/05/16 15:00 23:00 07:00 Intake Total 1800 ml 480 ml Balance 1800 ml 480 ml Intake Oral 1800 ml 480 ml # Voids 3 2 4 # Bowel Movements 1 . Laboratory Tests Test 11/04/16 11/05/16 10:14 12:00 White Blood Count 8.9 TH/MM3 8.5 TH/MM3 Red Blood Count 3.27 MIL/MM3 3.60 MIL/MM3 Hemoglobin 8.9 GM/DL 9.7 GM/DL Hematocrit 27.1 % 30.0 % Mean Corpuscular Volume 83.0 FL 83.5 FL Mean Corpuscular Hemoglobin 27.4 PG 26.9 PG Mean Corpuscular Hemoglobin 33.0 % 32.2 % Concent Red Cell Distribution Width 18.3 % 19.0 % Platelet Count 391 TH/MM3 382 TH/MM3 Mean Platelet Volume 7.8 FL 7.9 FL Neutrophils (%) (Auto) 94.9 % 94.0 % Lymphocytes (%) (Auto) 1.8 % 2.0 % Monocytes (%) (Auto) 2.9 % 3.0 % Eosinophils (%) (Auto) 0.3 % 0.9 % Basophils (%) (Auto) 0.1 % 0.1 % Neutrophils # (Auto) 8.5 TH/MM3 8.0 TH/MM3 Lymphocytes # (Auto) 0.2 TH/MM3 0.2 TH/MM3 Monocytes # (Auto) 0.3 TH/MM3 0.3 TH/MM3 Eosinophils # (Auto) 0.0 TH/MM3 0.1 TH/MM3 Basophils # (Auto) 0.0 TH/MM3 0.0 TH/MM3 CBC Comment AUTO DIFF AUTO DIFF Differential Total Cells 100 100 Counted Neutrophils % (Manual) 93 % 96 % Band Neutrophils % 4 % 2 % Monocytes % 1 % 1 % Eosinophils % 2 % Neutrophils # (Manual) 8.6 TH/MM3 8.4 TH/MM3 Differential Comment FINAL DIFF FINAL DIFF MANUAL MANUAL Hypersegmented Polys 1+ 1+ Platelet Estimate NORMAL NORMAL Platelet Morphology Comment NORMAL NORMAL Metamyelocytes 1 % Microbiology Date/Time Procedure Status Source Growth 11/03/16 10:46 Stool Occult Blood (LAURIE) - Final Complete Stool Stool HEMOCCULT NEGATIVE Imaging Last Impressions Chest X-Ray 11/01/165 Signed Impressions: Service Date/Time: Tuesday, November 01, 2016 23:15 - CONCLUSION: No acute disease. Brant Taylor MD Physical Exam GENERAL: cachectic female, looks chronically ill appearing, NAD SKIN: Warm and dry, no generalized rash. HEENT: [place] conjunctivae, no petechia or hemorrhage. No scleral icterus. No injection or drainage. Moist oral mucosa, no oral thrush. NECK: Trachea midline. No JVD. Has cervical lymphadenopathy. Supple, nontender , no meningeal signs. CARDIOVASCULAR: Regular rate and rhythm without murmurs, gallops, or rubs. RESPIRATORY: Clear to auscultation. Breath sounds equal bilaterally. No wheezes , rales, or rhonchi. GASTROINTESTINAL: Abdomen soft, non-tender, distended, all sounds are present and normoactive. No guarding. MUSCULOSKELETAL: Extremities without clubbing, cyanosis, or edema. No joint effusion, or edema noted. No calf tenderness. Negative Homans sign bilaterally. 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
[2016-11-05] MEDS: IRON SUCROSE INJ 200 MG in SODIUM CHLORIDE 0.9% INJ 100 ML IV SCH (14:58)
[2016-11-05] MEDS: CEFUROXIME AXETIL 500 MG TAB PO SCH ×2 (14:58→22:19)
[2016-11-05] MEDS: ACETAMINOPHEN/HYDROcodone 325 MG/10 MG TAB PO PRN ×2 (14:58→19:17)
--- NOTE | 2016-11-05 15:08 | HHI.PR ---
Subjective Remarks Doing well. No other concerns. Trying get stronger. Objective Vitals Vital Signs Date Time Temp Pulse Resp B/P Pulse Ox O2 Delivery O2 Flow Rate FiO2 11/05/16 11:30 95.1 66 20 114/67 100 11/05/16 07:50 94.1 64 20 104/64 99 11/05/16 07:29 16 11/05/16 04:00 97.0 68 17 96/65 95 11/05/16 00:00 97.2 77 17 120/83 98 11/04/16 20:00 97.9 70 17 113/71 100 11/04/16 16:00 98.0 100 16 97/70 92 I/O 11/04/16 11/04/16 11/04/16 11/05/16 11/05/16 11/05/16 07:00 15:00 23:00 07:00 15:00 23:00 Intake Total 1800 ml 480 ml Balance 1800 ml 480 ml Intake Oral 1800 ml 480 ml # Voids 1 3 2 4 # Bowel Movements 1 Result Diagram: 11/05/16 1200 11/03/16 0819 Objective Remarks GENERAL: This is a thin, cachectic patient, in no apparent distress. CARDIOVASCULAR: Regular rate and rhythm RESPIRATORY: Clear to auscultation. Breath sounds equal bilaterally. No wheezes , rales, or rhonchi. GASTROINTESTINAL: Abdomen soft, non-tender, nondistended. Normal active bowel sounds MUSCULOSKELETAL: Extremities without clubbing, cyanosis, or edema. NEURO: Alert & Oriented x4 to person, place, time, situation. Moves all ext x4 A/P Problem List: (1) Anemia ICD Code: D64.9 Status: Acute (2) Hypokalemia ICD Code: E87.6 Status: Acute (3) UTI (urinary tract infection) ICD Code: N39.0 Status: Acute (4) AIDS (acquired immune deficiency syndrome) ICD Code: B20 Status: Chronic Assessment and Plan 41-year-old female with a past medical history of of HIV/AIDS (CD4 <20 on 07/14), Non-Compliance, COPD and Anemia who presented to the ER with complaints of generalized weakness x3-4 days. Severe Symptomatic Microcytic Anemia: c/o generalized weakness/fatigue x2-3 days. Hgb 5.7, no active bleeding, hemoccult negative. S/p 2u pRBC transfusion. Repeat Hgb 9.7 today and much improved on IV iron. Iron panel with low TIBC/saturation/transferrin. Transfuse to keep Hgb >7.0. Appreciate hematologists recommendation.. IV iron per hematology recommendations. Sepsis on presentation now resolved : WBC 12.9K, tachycardic, with Tmax 102.2. Lactic acid 1.1. Suspect secondary to UTI, on IV Rocephin. 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 Appreciate infectious disease recommendations. Started the patient on ethambutol and Biaxin. HIV/AIDS: w/ Non-compliance. CD4 <20 on 07/14/16, resume HAART, Atovaquone. Infectious disease following patients. UTI: S/p Blood Cultures, received Vanco/Zosyn in ER, now on IV Rocephin. Urine culture with Corynebacterium. Await final recommendations from infectious disease. Hypokalemia: Replete, monitor. Repeat level in the morning patient states that she has not had any diarrhea. 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 Consult nut picker. Boost supplements with meal. DVT Prophylaxis: teds/SCDs Discharge Planning Per infectious disease and hematology Evelyn Starks MD Nov 05, 2016 15:08
[2016-11-05 15:36] VITALS: BP 121/73; PULSE 82; RESP 20; TEMP 95.9; O2SAT 92
[2016-11-05 20:00] VITALS: BP 109/65; PULSE 70; RESP 16; TEMP 95.9; O2SAT 97
[2016-11-05] MEDS: REMOVE OLD NICODERM (NICOTINE) PATCH TD SCH (21:00)
[2016-11-05] MEDS: ONDANSETRON HCL 4 MG/2 ML VIAL IVP PRN (21:49)
[2016-11-06] VITALS: BP 104/62; PULSE 72; RESP 17; TEMP 96.9; O2SAT 100
[2016-11-06 04:00] VITALS: BP 127/71; PULSE 78; RESP 18; TEMP 98.6; O2SAT 100
[2016-11-06] MEDS: ACETAMINOPHEN/HYDROcodone 325 MG/10 MG TAB PO PRN ×2 (05:15→09:19)
[2016-11-06 05:33] LABS: BLOOD, URINE TRACE (NEG); GLUCOSE,URINE NEG (NEG); KETONE, URINE NEG (NEG); MUCUS URINE FEW /lpf (OCC); NITRITE,URINE NEG (NEG); PH, URINE 6.5 (5.0-8.5); RENAL EPITHELIAL CELLS 7 /hpf; SQUAMOUS EPITHELIAL CELL URINE 1 /hpf (0-5); URINE COLOR LIGHT-YELLOW (YELLW/STRAW)
[2016-11-06 05:34] LABS: COMMENT (UR) CULTURE INDICATED; CULTURE IF INDICATED CULTURE INDICATED
[2016-11-06 07:23] LABS: POTASSIUM 3.6 MEQ/L (3.5-5.1)
[2016-11-06 07:26] LABS: HEMATOCRIT 31.6 % (35.0-46.0); MEAN CELL VOLUME 82.9 FL (80.0-100.0); MEAN CORPUSCULAR HEMOGLOBIN 27.2 PG (27.0-34.0); MEAN CORPUSCULAR HGB CONC 32.9 % (32.0-36.0); PLATELET COUNT 481 TH/MM3 (150-450); RED BLOOD COUNT 3.81 MIL/MM3 (4.00-5.30); RED CELL DISTRIBUTION WIDTH 19.1 % (11.6-17.2); WHITE BLOOD COUNT 14.4 TH/MM3 (4.0-11.0)
[2016-11-06 07:40] LABS: HEMO FLAGS AUTO DIFF
[2016-11-06 08:00] VITALS: BP 95/54; PULSE 81; RESP 20; TEMP 97.8; O2SAT 99
[2016-11-06 08:14] LABS: BANDS 6 % (0-6); POLYS (SEG NEUTROPHILS) 91 % (16-70); WBC DIFF SAMPLE 100
[2016-11-06 08:15] LABS: PLATELET ESTIMATE SMEAR HIGH (NORMAL); PLATELET MORPHOLOGY NORMAL (NORMAL); SCAN/DIFF FINAL DIFF MANUAL
[2016-11-06] MEDS: NICOTINE 21 MG/24 HR PATCH TD SCH (09:19)
[2016-11-06] MEDS: LACTOBACILLUS ACIDOPHILUS TAB PO SCH (09:19)
[2016-11-06] MEDS: CEFUROXIME AXETIL 500 MG TAB PO SCH (09:19)
[2016-11-06] MEDS: SODIUM CHLORIDE 0.9% FLUSH 5 ML FLUSH FLUSH SCH (09:20)
[2016-11-06] MEDS: CLARITHROMYCIN 500 MG TAB PO SCH (10:00)
[2016-11-06] MEDS: TENOFOVIR DISOPROXIL FUMARATE 300 MG TAB PO SCH (10:00)
[2016-11-06] MEDS: ATOVAQUONE SUSP 750 MG/5 ML UDC PO SCH (10:00)
[2016-11-06] MEDS: RITONAVIR 100 MG TAB PO SCH (10:00)
[2016-11-06] MEDS: ETHAMBUTOL HCL 400 MG TAB PO SCH (10:00)
[2016-11-06] MEDS: DOLUTEGRAVIR SODIUM 50 MG TAB PO SCH (10:00)
[2016-11-06] MEDS: DARUNAVIR 600 MG TAB PO SCH (10:00)
[2016-11-06] MEDS ORDERED: CEFT500T3 PO (10:15)
[2016-11-06] MEDS ORDERED: MYAM400T8 PO (10:15)
[2016-11-06] MEDS ORDERED: CLAR500T PO (10:15)
[2016-11-06] MEDS ORDERED: HYDR-3583 PO (10:15)
[2016-11-06] MEDS ORDERED: LACT PO (10:15)
--- NOTE | 2016-11-06 10:16 | HHI.DCPOC ---
Discharge Care Plan Diagnosis: (1) UTI (urinary tract infection) (2) Symptomatic anemia Your Health Problems Are: Difficulty with ADL Exercise Tolerance Goals to Promote Your Health * To prevent worsening of your condition and complications * To maintain your health at the optimal level Directions to Meet Your Goals Take your medications as prescribed Follow your dietary instruction Follow activity as directed Keep your appointments as scheduled Take your immunizations and boosters as scheduled If your symptoms worsen call your PCP, if no PCP go to Urgent Care Center or Emergency Room Smoking is Dangerous to Your Health. Avoid second hand smoke Call the 24-hour hour crisis hotline for domestic abuse at Claudio Orantes MD Nov 06, 2016 10:16
--- NOTE | 2016-11-06 11:06 | PD.ONC.PN ---
Subjective Subjective Remarks Afebrile overnight. Patient just found out her grandfather yesterday and wants to be discharged so she can go to his in [place]. She feels well today she states. Objective Data Date Time Temp Pulse Resp B/P Pulse Ox O2 Delivery O2 Flow Rate FiO2 11/06/16 08:00 97.8 81 20 95/54 99 11/06/16 04:00 98.6 78 18 127/71 100 11/06/16 00:00 96.9 72 17 104/62 100 11/05/16 20:00 95.9 70 16 109/65 97 11/05/16 15:36 95.9 82 20 121/73 92 11/05/16 11:30 95.1 66 20 114/67 100 Result Diagram: 11/06/16 0520 11/06/16 0520 Laboratory Results Laboratory Tests Test 11/05/16 11/06/16 11/06/16 12:00 05:13 05:20 White Blood Count 8.5 TH/MM3 14.4 TH/MM3 Red Blood Count 3.60 MIL/MM3 3.81 MIL/MM3 Hemoglobin 9.7 GM/DL 10.4 GM/DL Hematocrit 30.0 % 31.6 % Mean Corpuscular Volume 83.5 FL 82.9 FL Mean Corpuscular Hemoglobin 26.9 PG 27.2 PG Mean Corpuscular Hemoglobin 32.2 % 32.9 % Concent Red Cell Distribution Width 19.0 % 19.1 % Platelet Count 382 TH/MM3 481 TH/MM3 Mean Platelet Volume 7.9 FL 8.1 FL Neutrophils (%) (Auto) 94.0 % % Lymphocytes (%) (Auto) 2.0 % % Monocytes (%) (Auto) 3.0 % % Eosinophils (%) (Auto) 0.9 % % Basophils (%) (Auto) 0.1 % % Neutrophils # (Auto) 8.0 TH/MM3 TH/MM3 Lymphocytes # (Auto) 0.2 TH/MM3 TH/MM3 Monocytes # (Auto) 0.3 TH/MM3 TH/MM3 Eosinophils # (Auto) 0.1 TH/MM3 TH/MM3 Basophils # (Auto) 0.0 TH/MM3 TH/MM3 CBC Comment AUTO DIFF AUTO DIFF Differential Total Cells 100 100 Counted Neutrophils % (Manual) 96 % 91 % Band Neutrophils % 2 % 6 % Monocytes % 1 % 2 % Neutrophils # (Manual) 8.4 TH/MM3 14.0 TH/MM3 Metamyelocytes 1 % Differential Comment FINAL DIFF FINAL DIFF MANUAL MANUAL Hypersegmented Polys 1+ Platelet Estimate NORMAL HIGH Platelet Morphology Comment NORMAL NORMAL Urine Color LIGHT-YELLOW Urine Turbidity HAZY Urine pH 6.5 Urine Specific [place] 1.007 Urine Protein TRACE mg/dL Urine Glucose (UA) NEG mg/dL Urine Ketones NEG mg/dL Urine Occult Blood TRACE Urine Nitrite NEG Urine Bilirubin NEG Urine Urobilinogen LESS THAN 2.0 MG/DL Urine Leukocyte Esterase LARGE Urine RBC 49 /hpf Urine WBC 181 /hpf Urine WBC Clumps FEW Urine Squamous Epithelial 1 /hpf Cells Urine Renal Epithelial Cells 7 /hpf Urine Mucus FEW /lpf Microscopic Urinalysis Comment CULTURE INDICATED Lymphocytes % 1 % Sodium Level 134 MEQ/L Potassium Level 3.6 MEQ/L Chloride Level 103 MEQ/L Carbon Dioxide Level 20.0 MEQ/L Anion Gap 11 MEQ/L Blood Urea Nitrogen 14 MG/DL Creatinine 0.95 MG/DL Estimat Glomerular Filtration 78 ML/MIN Rate Random Glucose 62 MG/DL Calcium Level 8.2 MG/DL Culture Results Microbiology Date/Time Procedure Status Source Growth 11/06/16 05:13 Urine Culture Received Urine Clean Catch Pending Administered Medications Medications (Trade) Dose Ordered Sig/Carmen Route PRN Reason Start Time Stop Time Status Last Admin Dose Admin IV Flush (NS Flush) 2 ml BID FLUSH 11/02/16 09:00 11/06/16 09:20 Ondansetron HCl (Zofran Inj) 4 mg Q6H PRN IVP NAUSEA OR VOMITING 11/02/16 01:45 11/05/16 21:49 Acetaminophen (Tylenol) 650 mg Q6H PRN PO FEVER/PAIN SCALE 1 TO 2 11/02/16 01:45 11/03/16 00:47 Acetaminophen/ Hydrocodone Bitart ([place] 5-325 Mg) 1 tab Q4H PRN PO PAIN SCALE 3 TO 5 11/02/16 01:45 11/05/16 05:59 Acetaminophen/ Hydrocodone Bitart ([place] 10-325 Mg) 1 tab Q4H PRN PO PAIN SCALE 6 TO 10 11/02/16 01:45 11/06/16 09:19 Atovaquone (Mepron Liq) 1,500 mg DAILY PO 11/02/16 09:00 11/05/16 10:22 Darunavir (Prezista) 600 mg BID PO 11/02/16 09:00 11/05/16 22:19 Ritonavir (Norvir) 100 mg BID PO 11/02/16 09:00 11/05/16 22:19 Tenofovir Disoproxil Fumarate (Viread) 300 mg DAILY PO 11/02/16 09:00 11/05/16 10:23 Ethambutol HCl (Myambutol) 800 mg DAILY PO 11/02/16 12:00 11/05/16 10:22 Clarithromycin (Biaxin) 500 mg Q12HR PO 11/02/16 21:00 11/05/16 22:19 Lactobacillus Acidophilus (Lactinex) 1 tab TID PO 11/02/16 18:00 11/06/16 09:19 Nicotine (Habitrol 21 Mg Patch.24 Hr) 1 patch DAILY TD 11/02/16 17:00 11/06/16 09:19 Miscellaneous Information 1 HS TD 11/02/16 21:00 11/05/16 21:00 Witch Saray/ Glycerin (Tucks Pads) 1 applic Q6HR PRN TOPICAL HEMORRHOIDS 11/03/16 13:00 11/03/16 17:59 Cefuroxime Axetil (Ceftin) 500 mg Q12HR PO 11/05/16 15:00 11/12/16 14:59 11/06/16 09:19 Objective Remarks GENERAL: Malnourished female, sitting up in bed, wearing street clothes, bags packed, ready to go. SKIN: Warm and dry. HEAD: Normocephalic. EYES: No injection or drainage. NECK: Supple, trachea midline. CARDIOVASCULAR: +S1/S2 RESPIRATORY: diminished at bases. anterior clark clear. GASTROINTESTINAL: Abdomen soft, thin. EXTREMITIES: severe muscle wasting. NEUROLOGICAL: AO x 3. normal speech. moving all extremities. Assessment/Plan Problem List: (1) Symptomatic anemia Status: Acute Plan: --multiple factors contributing --microcytic anemia --Hemoccult negative --iron studies--show low TIBC, low saturation, low transferrin-->will give IV iron x 3bags --LDH high/haptoglobin high/direct Akosua negative-->no evidence of hemolysis --B12/folate: WNL --hepatitis panel negative --hemoglobin electrophoresis is normal transfuse pRBC to keep hgb>7 (2) AIDS (acquired immune deficiency syndrome) Status: Chronic Plan: --on antiretroviral medications --infectious disease following --on Mepron for PCP prophylaxis (3) UTI (urinary tract infection) Status: Acute Plan: --on multiple abx--Rocephin, Biaxin --urine culture shows corynebacterium. (4) АЛЕКСАНДР (mycobacterium avium-intracellulare) Status: Acute Plan: --ID following --on ethambutol and Biaxin --?invasion of bone marrow Assessment 41y/o female admitted with generalized weakness, fevers and severe anemia. h/o HIV/AIDS-->June 2016 her CD4 count less than 20. History of tobacco abuse. COPD Plan 1. ok to discharge from hematology perspective 2. recommend follow up with primary care physician and infectious disease within 1 week. Attending Statement The exam, history, and the medical decision-making described in the above note were completed with the assistance of the mid-level provider. I reviewed and agree with the findings presented. I attest that I had a [id number] encounter with the patient on the same day, and personally performed and documented my assessment and findings in the medical record. Renetta Holt Nov 06, 2016 11:06 Frank Camargo MD Nov 10, 2016 00:23
--- NOTE | 2016-11-06 12:38 | HHI.PR ---
Subjective Remarks Follow-up AIDS. Patient has no complaints. She wants to go home today because her grandfather . She has worsening leukocytosis with no fever overnight. No new complaints. Patient has been cleared for discharge by ID and hematology discussed with RN Objective Vitals Vital Signs Date Time Temp Pulse Resp B/P Pulse Ox O2 Delivery O2 Flow Rate FiO2 11/06/16 08:00 97.8 81 20 95/54 99 11/06/16 04:00 98.6 78 18 127/71 100 11/06/16 00:00 96.9 72 17 104/62 100 11/05/16 20:00 95.9 70 16 109/65 97 11/05/16 15:36 95.9 82 20 121/73 92 I/O 11/05/16 11/05/16 11/05/16 11/06/16 11/06/16 11/06/16 07:00 15:00 23:00 07:00 15:00 23:00 Intake Total 720 ml 623 ml 480 ml Balance 720 ml 623 ml 480 ml Intake Oral 720 ml 480 ml 480 ml IV Total 143 ml # Voids 4 6 3 2 # Bowel Movements 1 0 0 Result Diagram: 11/06/1620 11/06/16 0520 Imaging Last Impressions Chest X-Ray 11/01/162224 Signed Impressions: Service Date/Time: Tuesday, November 01, 2016 23:15 - CONCLUSION: No acute disease. Brant Taylor MD Objective Remarks GENERAL: This is a thin, cachectic patient, in no apparent distress. CARDIOVASCULAR: Regular rate and rhythm RESPIRATORY: Clear to auscultation. Breath sounds equal bilaterally. No wheezes , rales, or rhonchi. GASTROINTESTINAL: Abdomen soft, non-tender, nondistended. Normal active bowel sounds MUSCULOSKELETAL: Extremities without clubbing, cyanosis, or edema. NEURO: Alert & Oriented x4 to person, place, time, situation. Moves all ext x4 Procedures none A/P Problem List: (1) Anemia ICD Code: D64.9 Status: Acute (2) Hypokalemia ICD Code: E87.6 Status: Acute (3) UTI (urinary tract infection) ICD Code: N39.0 Status: Acute (4) AIDS (acquired immune deficiency syndrome) ICD Code: B20 Status: Chronic Assessment and Plan 41-year-old female with a past medical history of of HIV/AIDS (CD4 <20 on ), Non-Compliance, COPD and Anemia who presented to the ER with complaints of generalized weakness x3-4 days. Severe Symptomatic Microcytic Anemia likely secondary to sepsis: c/o generalized weakness/fatigue x2-3 days. Hgb 5.7, no active bleeding, hemoccult negative. S/p 2u pRBC transfusion. Repeat Hgb much improved on IV iron. Iron panel with low TIBC/saturation/transferrin. Transfuse to keep Hgb >7.0. Appreciate hematologists recommendation. IV iron per hematology recommendations. Sepsis on presentation now resolved : WBC 12.9K, tachycardic, with Tmax 102.2. Lactic acid 1.1. Suspect secondary to UTI, on IV Rocephin. 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 Appreciate infectious disease recommendations. Started the patient on ethambutol and Biaxin. Leukocytosis slightly worse today but looks clinically stable. She wants to go home because of that in the family. She will follow up with ID specialist as soon as possible HIV/AIDS: w/ Non-compliance. CD4 <20 on 07/14/16, resume HAART, Atovaquone. Infectious disease following patients. UTI: S/p Blood Cultures, received Vanco/Zosyn in ER, now on IV Rocephin. Urine culture with Corynebacterium. Await final recommendations from infectious disease continue Ceftin Hypokalemia: Replete, monitor. Repeat level improved patient states that she has not had any diarrhea. 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 Consult plant technician/control room operator. Boost supplements with meal. DVT Prophylaxis: teds/SCDs Discharge Planning Ready for discharge Claudio Orantes MD Nov 06, 2016 12:38
--- NOTE | 2016-11-06 13:32 | HHI.DS ---
Discharge Summary Admission Date Nov 02, 2016 at 07:52 Discharge Date: Nov 06, 2016 Admitting Diagnosis symptomatic anemia, pyelonephritis (1) Anemia ICD Code: D64.9 Diagnosis: Principal (2) Hypokalemia ICD Code: E87.6 Diagnosis: Principal (3) UTI (urinary tract infection) ICD Code: N39.0 Diagnosis: Principal (4) AIDS (acquired immune deficiency syndrome) ICD Code: B20 Diagnosis: Principal Procedures none Brief History - From Admission This is a 41-year-old female with a PMH of HIV/AIDS (CD4 <20 on 07/14/16), Non- Compliance, COPD and Anemia who presented to the ER with complaints of generalized weakness x3-4 days. Reports associated cough and fever today at home of 102. States hasn't been taking her HAART therapy regularly because she' s been "too weak to get out of bed". Follows w/ Dr. Cardenas, next appt in December , pt unsure of her CD4 count. On arrival, BP 92/52, HR 106, O2 sat 100% on RA, Afebrile. WBC 9, increased neutrophil count. Hgb 5.7. No active bleeding noted. K+ 3.1. U/a w/ UTI. CXR w/ no acute findings. S/p Blood Culture, Vanc /Zosyn in ER. 2u pRBC ordered, currently transfusing unit 1. CBC/BMP: 11/06/16 0520 11/06/16 0520 Significant Findings Laboratory Tests Test 11/04/16 11/05/16 11/06/16 11/06/16 10:14 12:00 05:13 05:20 Red Blood Count 3.27 MIL/MM3 3.60 MIL/MM3 3.81 MIL/MM3 (4.00-5.30) (4.00-5.30) (4.00-5.30) Hemoglobin 8.9 GM/DL 9.7 GM/DL 10.4 GM/DL (11.6-15.3) (11.6-15.3) (11.6-15.3) Hematocrit 27.1 % 30.0 % 31.6 % (35.0-46.0) (35.0-46.0) (35.0-46.0) Red Cell Distribution Width 18.3 % 19.0 % 19.1 % (11.6-17.2) (11.6-17.2) (11.6-17.2) Neutrophils (%) (Auto) 94.9 % 94.0 % (16.0-70.0) (16.0-70.0) Lymphocytes (%) (Auto) 1.8 % 2.0 % (9.0-44.0) (9.0-44.0) Neutrophils # (Auto) 8.5 TH/MM3 8.0 TH/MM3 (1.8-7.7) (1.8-7.7) Lymphocytes # (Auto) 0.2 TH/MM3 0.2 TH/MM3 (1.0-4.8) (1.0-4.8) Neutrophils % (Manual) 93 % (16-70) 96 % (16-70) 91 % (16-70) Neutrophils # (Manual) 8.6 TH/MM3 8.4 TH/MM3 14.0 TH/MM3 (1.8-7.7) (1.8-7.7) (1.8-7.7) Hypersegmented Polys 1+ (NORMAL) 1+ (NORMAL) Mean Corpuscular Hemoglobin 26.9 PG (27.0-34.0) Urine Turbidity HAZY (CLEAR) Urine Occult Blood TRACE (NEG) Urine Leukocyte Esterase LARGE (NEG) Urine RBC 49 /hpf (0-3) Urine WBC 181 /hpf (0-5) Urine WBC Clumps FEW (NONE) Urine Mucus FEW /lpf (OCC) White Blood Count 14.4 TH/MM3 (4.0-11.0) Platelet Count 481 TH/MM3 (150-450) Lymphocytes % 1 % (9-44) Platelet Estimate HIGH (NORMAL) Sodium Level 134 MEQ/L (136-145) Carbon Dioxide Level 20.0 MEQ/L (21.0-32.0) Estimat Glomerular Filtration 78 ML/MIN (>89) Rate Random Glucose 62 MG/DL (74-106) Calcium Level 8.2 MG/DL (8.5-10.1) Imaging Last Impressions Chest X-Ray 11/01/16 1709 Signed Impressions: Service Date/Time: Tuesday, November 01, 2016 23:15 - CONCLUSION: No acute disease. Brant Taylor MD PE at Discharge GENERAL: This is a thin, cachectic patient, in no apparent distress. CARDIOVASCULAR: Regular rate and rhythm RESPIRATORY: Clear to auscultation. Breath sounds equal bilaterally. No wheezes , rales, or rhonchi. GASTROINTESTINAL: Abdomen soft, non-tender, nondistended. Normal active bowel sounds MUSCULOSKELETAL: Extremities without clubbing, cyanosis, or edema. NEURO: Alert & Oriented x4 to person, place, time, situation. Moves all ext x4 Hospital Course 41-year-old female with a past medical history of of HIV/AIDS (CD4 <20 on ), Non-Compliance, COPD and Anemia who presented to the ER with complaints of generalized weakness x3-4 days. Severe Symptomatic Microcytic Anemia likely secondary to sepsis: c/o generalized weakness/fatigue x2-3 days. Hgb 5.7, no active bleeding, hemoccult negative. S/p 2u pRBC transfusion. Repeat Hgb much improved on IV iron. Iron panel with low TIBC/saturation/transferrin. Transfuse to keep Hgb >7.0. Appreciate hematologists recommendation. IV iron per hematology recommendations. Sepsis on presentation now resolved : WBC 12.9K, tachycardic, with Tmax 102.2. Lactic acid 1.1. Suspect secondary to UTI, on IV Rocephin. 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 Appreciate infectious disease recommendations. Started the patient on ethambutol and Biaxin. Leukocytosis slightly worse today but looks clinically stable. She wants to go home because of that in the family. She will follow up with ID specialist as soon as possible HIV/AIDS: w/ Non-compliance. CD4 <20 on 07/14/16, resume HAART, Atovaquone. Infectious disease following patients. UTI: S/p Blood Cultures, received Vanco/Zosyn in ER, now on IV Rocephin. Urine culture with Corynebacterium. Await final recommendations from infectious disease continue Ceftin Hypokalemia: Replete, monitor. Repeat level improved patient states that she has not had any diarrhea. 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 Consult therapist phys. Boost supplements with meal. DVT Prophylaxis: teds/SCDs Pt Condition on Discharge: Stable Discharge Disposition: Discharge Home Discharge Time: <= 30 minutes Discharge Instructions DIET: Follow Instructions for: As Tolerated, No Restrictions Activities you can perform: Regular-No Restrictions Activities to Avoid: Driving Follow up Referrals: Appointment for Follow Up - 1 Week with hematology Infectious Disease - 1 Week PCP Follow-up - 1 Week New Medications: Cefuroxime (Ceftin) 500 Mg Tab 500 MG PO Q12HR Infection #12 TAB Clarithromycin (Clarithromycin) 500 Mg Tab 500 MG PO Q12HR Infection #60 TAB Ethambutol (Myambutol) 400 Mg Tab 800 MG PO DAILY Infection #30 TAB Hydrocodone-Acetaminophen (Hydrocodone-Acetaminophen) 10-325 mg Tab 1 TAB PO Q6HR PRN pain #28 TAB Lactobacillus Acidophilus (Acidophilus/l-Sporogenes) 1 Tab Tab 1 TAB PO TID Bowel Management #90 TAB Continued Medications: Albuterol 8.5 GM Inh (Proair Hfa 8.5 GM Inh) 90 Mcg/Act Aer 2 PUFF INH Q6H 108 mcg/actuation PRN SHORTNESS OF BREATH #1 Ref 0 INHALER Albuterol Neb (Albuterol Neb) 1.25 Mg/3 Ml Neb 1.25 MG NEB TID NEB PRN SHORTNESS OF BREATH #100 Ref 0 NEBULE Atovaquone Liq (Mepron Liq) 750 Mg/5 Ml Susp 1500 MG PO DAILY Take with food. Infection #300 Ref 0 ML Darunavir (Prezista) 600 Mg Tab 600 MG PO BID Mgmt Viral Infection #60 Ref 0 TAB Dolutegravir (Tivicay) 50 Mg Tab 50 MG PO BID Mgmt Viral Infection #60 Ref 0 TAB Promethazine (Phenergan) 25 Mg Tab 25 MG PO Q6H PRN Nausea/Vomiting Ref 0 TAB Promethazine Supp (Phenergan Supp) 12.5 Mg Supp 12.5 MG RECTAL Q6H PRN NAUSEA OR VOMITING Ref 0 SUPP Ritonavir (Norvir) 100 Mg Cap 100 MG PO BID Mgmt Viral Infection #180 Ref 0 CAP Tenofovir disoproxil fumarate (Viread) 300 Mg Tab 300 MG PO DAILY Mgmt Viral Infection #30 Ref 0 TAB Discontinued Medications: Azithromycin (Azithromycin) 600 Mg Tab 1200 MG PO Q7D Infection Ref 0 TAB Claudio Orantes MD Nov 06, 2016 13:32
== END 2016-11-06 12:51 | disposition home or self-care (01) | DRG 974 ==
LOC: NEPE 21:27 → NEDA 11-02 01:44 → NEPGCP 11-02 03:58 → OBSVTOIN 11-02 07:52 → HOCA 11-03 23:45
PROVIDERS: ADMIT Internal Medicine; ATTEND Internal Medicine
PROC: 30253N1 (ICD-10-PCS; principal; 2016-11-02)
DX: B20 Human immunodeficiency virus [HIV] disease (principal); A41.9 Sepsis, unspecified organism; E43 Unspecified severe protein-calorie malnutrition; A31.0 Pulmonary mycobacterial infection; R64 Cachexia; J44.9 Chronic obstructive pulmonary disease, unspecified; N39.0 Urinary tract infection, site not specified; D50.9 Iron deficiency anemia, unspecified; E87.6 Hypokalemia; Z91.19 Patient's noncompliance with other medical treatment and regimen; I10 Essential (primary) hypertension; J45.909 Unspecified asthma, uncomplicated; K21.9 Gastro-esophageal reflux disease without esophagitis; R32 Unspecified urinary incontinence; F17.200 Nicotine dependence, unspecified, uncomplicated
CPT/HCPCS: 36430; 71010; 76937; 80048; 80053; 81001; 82272; 82550; 82607; 82747; 83010; 83020; 83540; 83550; 83605; 83615; 83690; 83735; 84466; 84484; 84703; 85007; 85025; 85027; 85610; 85730; 86705; 86803; 86850; 86880; 86900; 86901; 86920; 87040; 87086; 87340; 87641; 90686; 93005; 96365; 96368; 96375; J0696; J1756; J2405; J2543; J3370; J7030; J7050; P9016; Q2038

== ENCOUNTER 2016-11-20 11:44 | Emergency (ER) | payer OTHER ==
[~2016-11-20] VITALS: Ht 160 cm; Wt 37.0 kg
[~2016-11-20 11:44] MED LIST changes: -AZIT600T PO; +CEFT500T3 PO; -CEFU250T PO; +CLAR500T PO; -CYCL1TAB29 PO; +HYDR-3583 PO; +LACT PO; +MYAM400T8 PO; +PROM2SUP RECTAL; -ZANT150T2 PO
[2016-11-20 11:46] VITALS: BP 92/65; PULSE 109; RESP 16; TEMP 97.7; O2SAT 98
--- NOTE | 2016-11-20 12:48 | PD ---
HPI Chief Complaint: Medication Refill Request Time Seen by Provider: 12:30 Travel History International Travel<30 days: No Contact w/Intl Traveler<30days: No Traveled to known affect area: No History of Present Illness HPI Patient comes in requesting a refill of her [place] that she was prescribed after being in the hospital recently. Patient states she is taking for her back pain. Patient states she has a follow-up appointment scheduled with her primary care doctor however she took her last pain pill today. Patient states she's been compliant with all of her other medications and has not had any fevers or weakness. Denies any chest pain, shortness of breath nausea vomiting , numbness or tingling anywhere, trauma, abdominal pain, or loss or change in bowel or bladder. History Past Medical Histgory Hx Cancer: No Hx Chemotherapy: No Hx Radiation Therapy: No Social History Alcohol Use: No Tobacco Use: Yes (1 PACK EVERY 3 DAYS) Allergies-Medications (Allergen,Severity, Reaction): Coded Allergies: Cipro (Verified Allergy, Severe, HIVES, 11/20/16) Contrast Media (Verified Allergy, Severe, Hives, 11/20/16) Iodide Tincture (Verified Allergy, Severe, HIVES, 11/20/16) Lisinopril (Unverified Allergy, Severe, Swelling, 11/20/16) Wellbutrin (Verified Allergy, Severe, HIVES, 11/20/16) *MDRO Multi-Drug Resistant Organism (Verified Adverse Reaction, Unknown, ) MRSA (leg wound) - 2008 MRSA PCR Screen #1 NEGATIVE - 11/04/16 Reported Meds & Prescriptions Reported Meds & Active Scripts Active Acidophilus/l-Sporogenes (Lactobacillus Acidophilus) 1 Tab Tab 1 Tab PO TID Hydrocodone-Acetaminophen 10-325 mg Tab 1 Tab PO Q6HR PRN Myambutol (Ethambutol HCl) 400 Mg Tab 800 Mg PO DAILY Clarithromycin 500 Mg Tab 500 Mg PO Q12HR Ceftin (Cefuroxime Axetil) 500 Mg Tab 500 Mg PO Q12HR Reported Phenergan Supp (Promethazine HCl) 12.5 Mg Supp 12.5 Mg RECTAL Q6H PRN Phenergan (Promethazine HCl) 25 Mg Tab 25 Mg PO Q6H PRN Viread (Tenofovir Disoproxil Fumarate) 300 Mg Tab 300 Mg PO DAILY Norvir (Ritonavir) 100 Mg Cap 100 Mg PO BID Mepron Liq (Atovaquone) 750 Mg/5 Ml Susp 1,500 Mg PO DAILY Take with food. Tivicay (Dolutegravir Sodium) 50 Mg Tab 50 Mg PO BID Prezista (Darunavir) 600 Mg Tab 600 Mg PO BID Proair Hfa 8.5 GM Inh (Albuterol Sulfate) 90 Mcg/Act Aer 2 Puff INH Q6H PRN 108 mcg/actuation Albuterol Neb (Albuterol Sulfate) 1.25 Mg/3 Ml Neb 1.25 Mg NEB TID NEB PRN Review of Systems Except as stated in HPI: all other systems reviewed are Neg Physical Exam Narrative GENERAL: Well-developed, under nourished, in no acute distress, and non-ill appearing. SKIN: Warm and dry. HEAD: Atraumatic. Normocephalic. EYES: Pupils equal and round. EOMI. No scleral icterus. No injection or drainage. ENT: No nasal bleeding or discharge. Mucous membranes pink and moist. NECK: Trachea midline. Supple. No nuclear rigidity. CARDIOVASCULAR: Regular rate and rhythm. No murmur appreciated. RESPIRATORY: No accessory muscle use. No respiratory distress. MUSCULOSKELETAL: No obvious deformities. No clubbing. No cyanosis. No edema. Full range of motion. NEUROLOGICAL: Awake and alert. No obvious cranial nerve deficits. Motor grossly within normal limits. Normal speech. PSYCHIATRIC: Appropriate mood and affect; insight and judgment normal. Data Data Last Documented VS Vital Signs Date Time Temp Pulse Resp B/P Pulse Ox O2 Delivery O2 Flow Rate FiO2 11/20/16 11:46 97.7 109 16 92/65 98 MDM Medical Screen Exam Complete: Yes Emergency Medical Condition: No Narrative Course History and physical exam findings are not consistent with an emergent medical condition. She was given the option of receiving additional care, but has declined. Therefore the appropriate counseling recommendations were discussed with the patient and she was instructed to follow-up with her primary care physician as soon as possible for reevaluation. Patient was also informed of community resources from which she can obtain additional care. She is agreeable and verbalizes an understanding of the proposed plan. The patient states she will immediately return to the emergency department if her current complaints do not improve, new symptoms arise, or emergent condition develops. Patient ambulated out of the emergency department without difficulty. Primary Impression: Encounter for medical screening examination Disposition: [facility]-ED USE ONLY Condition: Stable Meet Lucas Nov 20, 2016 12:48
== END 2016-11-20 12:47 | disposition left against medical advice (07) ==
LOC: NEPB 11:44
DX: M54.9 Dorsalgia, unspecified (principal); Z76.0 Encounter for issue of repeat prescription; F17.210 Nicotine dependence, cigarettes, uncomplicated
CPT/HCPCS: 99281

== ENCOUNTER 2017-02-22 19:53 | Inpatient (IN) | payer OTHER ==
[~2017-02-22] VITALS: Ht 160 cm; Wt 28.0 kg
[2017-02-22] MEDS ORDERED: VANCOMYCIN INJ 750 MG in SODIUM CHLOR 0.9% 250 ML INJ 250 ML IV ONE (20:15)
[2017-02-22] MEDS ORDERED: SODIUM CHLOR 0.9% 1000 ML INJ 1,000 ML IV ONE (20:15)
[2017-02-22] MEDS ORDERED: PIPERACIL-TAZO 3.375 GM PREMIX 50 ML IV ONE (20:15)
[2017-02-22 20:24] VITALS: BP 111/55; PULSE 75; RESP 18; TEMP 97.8; O2SAT 100
--- NOTE | 2017-02-22 20:30 | PD ---
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 She reports that the diarrhea is brown to green in color. She denies having any blood or mucus in her stool. She reports that she last had her CD4 count and viral load checked in June. She reports that at that time the CD4 count was low and her viral load was high. She reports that she has been on retroviral medications, however she missed 2 weeks of all of her medications when she went emergently to [place] recently when her daughter was involved in a motor vehicle accident. She reports that 4 days ago she started back on her medicine. She reports that since June she has intermittently had urinary frequency. She denies having any dysuria or urinary urgency. The patient arrives by ambulance services with a blood pressure systolic of 88 which is not unusual for her as she is only 60 pounds. The patient had a heart rate noted to be in the 80s to 90s. The patient's blood sugar prior to arrival was 198, O2 saturations on room air were 99-100%. The patient reports that today she began to have a fever. She reports that her MAXIMUM TEMPERATURE at home was 103. She reports that she took Tylenol 30 minutes prior to arrival. The patient reports having nausea without vomiting. She reports that she has midepigastric and bilateral upper quadrant abdominal discomfort. She reports that she's had a diminished appetite. The patient denies any neck pain, chest pain, worse in shortness of breath, or focal neurologic symptoms. [facility] Past Medical History Narrative Medical The patient's past medical history is significant for COPD, asthma, HIV that is progressed AIDS, history of recurrent anemia with frequent blood transfusions every 4 months. She reports that her last blood transfusion was in June. The patient has a history of acid reflux, migraine headaches, anxiety disorder. Arthritis: No Asthma: Yes Autoimmune Disease: Yes Blood Disorders: Yes (ANEMIA) Anxiety: Yes Depression: No Heart Rhythm Problems: No Cancer: No Cardiovascular Problems: No High Cholesterol: No Chemotherapy: No Chest Pain: No Congestive Heart Failure: No COPD: Yes Cerebrovascular Accident: No Diabetes: No Diminished Hearing: No Endocrine: No Gastrointestinal Disorders: Yes GERD: Yes Glaucoma: No Genitourinary: No Headaches: Yes (daily) Hepatitis: No Hiatal Hernia: No Hypertension: Yes Immune Disorder: Yes (HIV/AIDS) Kidney Stones: No Musculoskeletal: Yes Neurologic: Yes Psychiatric: Yes Reproductive: No Respiratory: Yes Integumentary: Yes (ECZEMA) Immunizations Current: Yes Migraines: Yes Myocardial Infarction: No Radiation Therapy: No Renal Failure: No Seizures: No Sickle Cell Disease: No Sleep Apnea: No Thyroid Disease: No Ulcer: No : 6 Para: 2 Miscarriage: 4 : 4 Ectopic : No Ovarian Cysts: No Tubal Ligation: No Past Surgical History Narrative Surgical The patient's past surgical history is significant for endoscopy, polypectomy. Abdominal Surgery: Yes (POLPS REMOVED) AICD: No Appendectomy: No Arteriovenous Shunt: No Cardiac Surgery: No Cholecystectomy: No Ear Surgery: No Endocrine Surgery: No Eye Surgery: No Genitourinary Surgery: No Gynecologic Surgery: No Hysterectomy: No Insulin Pump: No Joint Replacement: No Oral Surgery: No Pacemaker: No Thoracic Surgery: No Other Surgery: Yes (polyp removal, endoscopy, esoph. ablation) Social History Alcohol Use: No Tobacco Use: Yes (1 PACK EVERY 3 DAYS) Substance Use: No Allergies-Medications (Allergen,Severity, Reaction): Coded Allergies: Cipro (Verified Allergy, Severe, HIVES, 02/22/17) Contrast Media (Verified Allergy, Severe, Hives, 02/22/17) Iodide Tincture (Verified Allergy, Severe, HIVES, 02/22/17) Lisinopril (Unverified Allergy, Severe, Swelling, 02/22/17) Wellbutrin (Verified Allergy, Severe, HIVES, 02/22/17) *MDRO Multi-Drug Resistant Organism (Verified Adverse Reaction, Unknown, ) MRSA (leg wound) - 2008 MRSA PCR Screen #1 NEGATIVE - 11/04/16 Reported Meds & Prescriptions Reported Meds & Active Scripts Active Reported [Viread] 300 Mg PO DAILY Ethambutol (Ethambutol HCl) 400 Mg Tab 400 Mg PO DAILY [Prezista] 600 Mg PO BID Norvir (Ritonavir) 100 Mg Cap 100 Mg PO BID Mepron Liq (Atovaquone) 750 Mg/5 Ml Susp 1,500 Mg PO DAILY Take with food. Tivicay (Dolutegravir Sodium) 50 Mg Tab 50 Mg PO BID Proair Hfa 8.5 GM Inh (Albuterol Sulfate) 90 Mcg/Act Aer 2 Puff INH Q6H PRN 108 mcg/actuation Albuterol Neb (Albuterol Sulfate) 1.25 Mg/3 Ml Neb 1.25 Mg NEB TID NEB PRN Review of Systems Except as stated in HPI: all other systems reviewed are Neg General / Constitutional: No: Fever Eyes: No: Visual changes HENT: Positive: Headaches, Rhinorrhea, Congestion, No: Neck Stiffness, Neck Pain Cardiovascular: Positive: Dyspnea on exertion, No: Chest Pain or Discomfort Respiratory: Positive: Cough, Shortness of Breath (chronic), Wheezing Gastrointestinal: Positive: Nausea, Diarrhea, Abdominal Pain, Changes in Bowel Habits, Indigestion, Loss of Appetite, No: Vomiting, Hematemesis, Hematochezia , Constipation Genitourinary: Positive: Frequency, No: Urgency, Dysuria, Flank Pain Musculoskeletal: No: Pain Skin: No Rash Neurologic: Positive: Weakness (generalized weakness), No: Focal Abnormalities , Change in Mentation, Slurred Speech, Sensory Disturbance Psychiatric: No: Depression Endocrine: No: Polydipsia Hematologic/Lymphatic: No: Easy Bruising Physical Exam Narrative General: The patient is a well-developed, cachectic appearing female in no acute distress. Head and Neck exam: Head is normocephalic atraumatic. Eyes: EOMI, pupils are equal round and reactive to light. Nose: Midline septum with pink mucous membranes Mouth: Dentition unremarkable. Moist mucus membranes. Posterior oropharynx is not erythematous. No tonsillar hypertrophy. Uvula midline. Airway patent. No thrush noted in the posterior oropharynx. Neck: No palpable lymphadenopathy. No nuchal rigidity. No thyromegaly. Cardiovascular: Regular rate and rhythm without murmurs, gallops, or rubs. No pulse deficit to the extremities and simultaneous auscultation and palpation of her radial artery. Lungs: Clear to auscultation bilaterally. No wheezes, rhonchi, or rales. Abdomen: Soft, with tenderness on palpation in the midepigastric area and bilateral upper quadrants of the abdomen. No guarding, rebound, or rigidity. No tenderness on palpation of McBurney's point. Normal bowel sounds are audible. Negative [place] sign. Extremities: No clubbing, cyanosis, or edema. 2+ pulses in all 4 extremities. No calf tenderness on palpation. Back: No spinous process tenderness to palpation. No costovertebral angle tenderness to palpation. Neurologic Exam: Cranial nerves 2-12 were intact on exam. Strength is 5/5 in all 4 extremities. No sensory deficits noted. Skin Exam: No rash noted. Intact skin that is warm and dry. Data Data Last Documented VS Vital Signs Date Time Temp Pulse Resp B/P Pulse Ox O2 Delivery O2 Flow Rate FiO2 02/22/17 21:18 100 Room Air 02/22/17 21:18 79 18 02/22/17 20:24 97.8 111/55 Orders Electrocardiogram (02/22/17 20:04) Complete Blood Count With Diff (02/22/17 20:04) Comprehensive Metabolic Panel (02/22/17 20:04) B-Type Natriuretic Peptide (02/22/17 20:04) Prothrombin Time / Inr (Pt) (02/22/17 20:04) Act Partial Throm Time (Ptt) (02/22/17 20:04) Blood Culture (02/22/17 20:04) C-Reactive Protein (Crp) (02/22/17 20:04) Lipase (02/22/17 20:04) Urinalysis - C+S If Indicated (02/22/17 20:04) Magnesium (Mg) (02/22/17 20:04) Enteric Path (Stool) (02/22/17 20:04) C Diff Toxin Pcr (02/22/17 20:04) Influenzae A/B Antigen (02/22/17 20:04) Chest, Single Ap (02/22/17 20:04) Iv Access Insert/Monitor (02/22/17 20:04) Ecg Monitoring (02/22/17 20:04) Oximetry (02/22/17 20:04) Stool Wbc (Leukocytes) (02/22/17 20:04) Ed Urine Pregnancytest Poc (02/22/17 20:04) Lactic Acid Sepsis Protocol (02/22/17 20:04) Sodium Chlor 0.9% 1000 Ml Inj (Ns 1000 M (02/22/17 20:15) Piperacil-Tazo 3.375 Gm Premix (Zosyn 3. (02/22/17 20:15) Vancomycin Inj (Vancomycin Inj) (02/22/17 20:15) Type And Screen (02/22/17 21:43) Red Blood Cells (Rbc) (02/22/17 21:43) Blood Product Administration .UPON TRANSFUSION (02/22/17 21:43) Sodium Chlor 0.9% 250 Ml Inj (Ns 250 Ml (02/22/17 21:45) Potassium Chloride Eff (K-Lyte Cl Eff) (02/22/17 22:15) Ns + Kcl 20 Meq Inj (Ns + Kcl 20 Meq Inj (02/22/17 22:15) Ct Abd/Pel W/O Iv Contrast (02/22/17 22:11) Calcium Gluconate Inj (Calcium Gluconate (02/22/17 22:45) Admit Order (Ed Use Only) (02/22/17 22:53) Labs Laboratory Tests Test 02/22/17 02/22/17 02/22/17 21:00 21:32 21:59 White Blood Count 8.8 TH/MM3 Red Blood Count 1.59 MIL/MM3 Hemoglobin 4.3 GM/DL Hematocrit 13.9 % Mean Corpuscular Volume 87.9 FL Mean Corpuscular Hemoglobin 26.9 PG Mean Corpuscular Hemoglobin 30.6 % Concent Red Cell Distribution Width 18.6 % Platelet Count 295 TH/MM3 Mean Platelet Volume 9.0 FL Neutrophils (%) (Auto) 93.0 % Lymphocytes (%) (Auto) 3.1 % Monocytes (%) (Auto) 3.4 % Eosinophils (%) (Auto) 0.3 % Basophils (%) (Auto) 0.2 % Neutrophils # (Auto) 8.1 TH/MM3 Lymphocytes # (Auto) 0.3 TH/MM3 Monocytes # (Auto) 0.3 TH/MM3 Eosinophils # (Auto) 0.0 TH/MM3 Basophils # (Auto) 0.0 TH/MM3 CBC Comment AUTO DIFF Differential Total Cells 100 Counted Neutrophils % (Manual) 82 % Band Neutrophils % 11 % Lymphocytes % 4 % Monocytes % 3 % Neutrophils # (Manual) 8.2 TH/MM3 Differential Comment FINAL DIFF MANUAL Hypersegmented Polys 1+ Toxic Granulation 1+ Platelet Estimate NORMAL Platelet Morphology Comment NORMAL Tear Drop Cells 1+ Ovalocytes 1+ Keratocytes OCC Prothrombin Time 12.1 SEC Prothromb Time International 1.1 RATIO Ratio Activated Partial 41.0 SEC Thromboplast Time Sodium Level 133 MEQ/L Potassium Level 2.0 MEQ/L Chloride Level 102 MEQ/L Carbon Dioxide Level 16.9 MEQ/L Anion Gap 14 MEQ/L Blood Urea Nitrogen 16 MG/DL Creatinine 1.21 MG/DL Estimat Glomerular Filtration 59 ML/MIN Rate Random Glucose 88 MG/DL Lactic Acid Level 3.7 mmol/L Calcium Level 7.2 MG/DL Protein Corrected Calcium 7.5 MG/DL Magnesium Level 1.7 MG/DL Total Bilirubin LESS THAN 0.1 MG/DL Aspartate Amino Transf 17 U/L (AST/SGOT) Alanine Aminotransferase 11 U/L (ALT/SGPT) Alkaline Phosphatase 130 U/L C-Reactive Protein 10.00 MG/DL B-Type Natriuretic Peptide 31 PG/ML Total Protein 6.5 GM/DL Albumin 1.2 GM/DL Lipase 146 U/L Urine Color COLORLESS Urine Turbidity CLEAR Urine pH 6.5 Urine Specific [place] 1.002 Urine Protein NEG mg/dL Urine Glucose (UA) NEG mg/dL Urine Ketones NEG mg/dL Urine Occult Blood NEG Urine Nitrite NEG Urine Bilirubin NEG Urine Urobilinogen LESS THAN 2.0 MG/DL Urine Leukocyte Esterase LARGE Urine RBC LESS THAN 1 /hpf Urine WBC 4 /hpf Urine Squamous Epithelial <1 /hpf Cells Urine Bacteria OCC /hpf Microscopic Urinalysis Comment CULT NOT INDICATED Blood Type B POSITIVE Antibody Screen NEGATIVE Crossmatch Leukocyte-Reduced Red Blood Cells Blood Bank Comment MDM Medical Decision Making Medical Screen Exam Complete: Yes Emergency Medical Condition: Yes Medical Record Reviewed: Yes Interpretation(s) Last Impressions Abdomen/Pelvis CT 02/22/172210 Signed Impressions: Service Date/Time: Wednesday, February 22, 2017 23:17 - CONCLUSION: Normal examination. The patient needs a good quality CT examination of the abdomen pelvis with IV and oral contrast for followup. Awais Rhoades MD Chest X-Ray 02/22/172003 Signed Impressions: Service Date/Time: Wednesday, February 22, 2017 20:40 - CONCLUSION: No acute disease. Stalin Sanches MD Differential Diagnosis Dehydration, versus electrolyte derangements, versus sepsis, versus pneumonia, versus urinary tract infection, versus symptomatic anemia Narrative Course During the course of the patients emergency department visit, the patients history, examination, and differential diagnosis were reviewed with the patient. The patient had IV access obtained and blood work sent for analysis. The patient was placed on a bookkeeper with oximetry and blood pressure monitoring. An EKG was ordered. The patient had an EKG done that shows a sinus rhythm with occasional premature ventricular contractions, nonspecific T- wave abnormalities, QRS duration is 98 ms, QTC 431 ms, no acute ST segment elevation. The patient was initially provided a 30 mL per KG IV fluid bolus based on her reported approximately 60 pound weight which was 900 mL normal saline times one. The patient was started on Zosyn 3.375 g IV, vancomycin 750 mg IV. The patients laboratory studies were reviewed and remarkable for a white count of 8.8, hemoglobin 4.3, platelets 295 with 82 neutrophils, 11 bands, toxic granulation present. The patient was typed and crossmatched for 4 units of packed red blood cells and 2 units were administered immediately once they were ready. CMP is remarkable for sodium of 133, potassium 2.0. The patient was given K-Lyte 50 mEq by mouth 1. The patient was started on maintenance fluids with potassium chloride, CO2 is 16.9, creatinine 1.21, protein corrected calcium 7.5, magnesium 1.7, total bilirubin less than 0.1, alkaline phosphatase 1:30, C-reactive protein 10, lipase 146, BNP is 31. Lactic acid is 3.7, PT 12.1 , PTT 41, urinalysis shows large leukocyte esterase, 4 wbc's, occasional bacteria, otherwise unremarkable. Radiology studies were reviewed and remarkable for a chest x-ray that shows no acute abnormality. CT scan of the abdomen and pelvis showed no acute abnormality according to the radiologist, however on further examination of the body of the note the patient has suspected care of aortic lymphadenopathy and bilateral inguinal lymphadenopathy. They recommended a follow-up CT scan with oral and IV contrast. The patients results were discussed with the patient, including the plan of care. I explained that further testing and/ or monitoring is indicated based on the patients history, examination, and/ or laboratory findings. Therefore, I recommended admission for additional evaluation. The patient expressed understanding and was agreeable with this plan. The patient was admitted to the hospital in guarded condition and sent to a bed under the care of the [facility] service. Critical Care Narrative Aggregate critical care time was 35 minutes. Time to perform other separately billable procedures was not included in the critical care time. My time did not include minutes spent treating any other patients simultaneously or on activities that did not directly contribute to the patient's treatment. The services I provided to this patient were to treat and/or prevent clinically significant deterioration that could result in: Respiratory failure from fluid overload, versus cardiovascular collapse from severe sepsis I provided critical care services requiring my management, as noted below: Chart data review, documentation time, medication orders and management, vital sign assessments/reviewing monitor data, ordering and reviewing lab tests, ordering and interpreting/reviewing x-rays and diagnostic studies, care of the patient and discussion of the patient with the admitting physicians. Diagnosis Primary Impression: Symptomatic anemia Additional Impressions: Hypokalemia Hypocalcemia Febrile illness Influenza Admitting Information Admitting Physician Requests: Colette Dillon MD February 22, 2017 20:30
--- NOTE | 2017-02-22 20:51 | RADRPT ---
EXAM DATE/TIME: 02/22/2017 20:40 [facility] COMPARISON: CHEST SINGLE AP, November 01, 2016, 23:15. INDICATIONS : Cough. MEDICAL HISTORY : Chronic obstructive pulmonary disease. Asthma. SURGICAL HISTORY : None. ENCOUNTER: Initial ACUITY: 1 day PAIN SCORE: 0/10 LOCATION: Bilateral chest FINDINGS: A single view of the chest demonstrates the lungs to be symmetrically aerated without evidence of mas s, infiltrate or effusion. The cardiomediastinal contours are unremarkable. Degenerative changes and scoliosis of the thoraco-lumbar spine are noted. CONCLUSION: No acute disease. Stalin Sanches MD on February 22, 2017 at 20:49 Board Certified Radiologist. This report was verified electronically.
[2017-02-22 21:18] VITALS: O2SAT 100
[2017-02-22 21:28] LABS: AUTOMATED NEUTROPHIL # 8.1 TH/MM3 (1.8-7.7); BASOPHIL % 0.2 % (0.0-2.0); EOSINOPHIL % 0.3 % (0.0-4.0); LYMPH % 3.1 % (9.0-44.0); LYMPHOCYTE # 0.3 TH/MM3 (1.0-4.8); MEAN CELL VOLUME 87.9 FL (80.0-100.0); MEAN CORPUSCULAR HEMOGLOBIN 26.9 PG (27.0-34.0); MEAN CORPUSCULAR HGB CONC 30.6 % (32.0-36.0); MONO % 3.4 % (0.0-8.0); PLATELET COUNT 295 TH/MM3 (150-450); RED BLOOD COUNT 1.59 MIL/MM3 (4.00-5.30); RED CELL DISTRIBUTION WIDTH 18.6 % (11.6-17.2); WHITE BLOOD COUNT 8.8 TH/MM3 (4.0-11.0)
[2017-02-22] MEDS ORDERED: PREZISTA PO (21:29)
[2017-02-22] MEDS ORDERED: VIREAD PO (21:29)
[2017-02-22] MEDS ORDERED: ETHA400T PO (21:29)
[2017-02-22 21:37] LABS: HEMO FLAGS AUTO DIFF
[2017-02-22 21:38] LABS: HEMATOCRIT 13.9 % (35.0-46.0)
[2017-02-22 21:40] LABS: INTERNATIONAL NORMALIZED RATIO 1.1 RATIO; PROTHROMBIN TIME - PATIENT 12.1 SEC (9.8-11.6)
[2017-02-22] MEDS ORDERED: SODIUM CHLOR 0.9% 250 ML INJ 250 ML IV ONE (21:45)
[2017-02-22 21:54] LABS: ANION GAP 14 MEQ/L (5-15)
[2017-02-22 21:59] LABS: ALKALINE PHOSPHATASE 130 U/L (45-117); ALT (GPT) 11 U/L (10-53); AST (GOT) 17 U/L (15-37); BICARBONATE 16.9 MEQ/L (21.0-32.0); BLOOD UREA NITROGEN 16 MG/DL (7-18); CALCIUM-PROTEIN CORRECTED 7.5 MG/DL (8.5-10.1); CHLORIDE 102 MEQ/L (98-107); GLOMERULAR FILTRATION RATE 59 ML/MIN (>89); MAGNESIUM 1.7 MG/DL (1.5-2.5); SODIUM (NA) 133 MEQ/L (136-145); TOTAL BILIRUBIN ADULT LESS THAN 0.1 MG/DL (0.2-1.0)
[2017-02-22 22:06] LABS: BACTERIA, URINE OCC /hpf; BLOOD, URINE NEG (NEG); GLUCOSE,URINE NEG (NEG); KETONE, URINE NEG (NEG); NITRITE,URINE NEG (NEG); PH, URINE 6.5 (5.0-8.5); SQUAMOUS EPITHELIAL CELL URINE <1 /hpf (0-5); URINE COLOR COLORLESS (YELLW/STRAW)
[2017-02-22 22:14] LABS: COMMENT (UR) CULT NOT INDICATED; CULTURE IF INDICATED CULT NOT INDICATED
[2017-02-22] MEDS ORDERED: POTASSIUM CHLORIDE 25 MEQ EFFERVESCENT TAB PO ONE (22:15)
[2017-02-22] MEDS ORDERED: NS + KCL 20 MEQ INJ 1,000 ML IV SCH (22:15)
[2017-02-22 22:24] LABS: BANDS 11 % (0-6); NEUTROPHIL # MANUAL DIFF 8.2 TH/MM3 (1.8-7.7); POLYS (SEG NEUTROPHILS) 82 % (16-70); WBC DIFF SAMPLE 100
[2017-02-22 22:25] LABS: HYPERSEGMENTED POLYS 1+ (NORMAL); KERATOCYTES OCC (NORMAL); OVALOCYTES 1+ (NORMAL); PLATELET ESTIMATE SMEAR NORMAL (NORMAL); PLATELET MORPHOLOGY NORMAL (NORMAL); SCAN/DIFF FINAL DIFF MANUAL; TEARDROP RBCS 1+ (NORMAL); TOXIC GRANULATION 1+ (NORMAL)
[2017-02-22] MEDS ORDERED: CALCIUM GLUCONATE INJ 1 GM in DEXTROSE 5% IN WATER 100ML INJ 100 ML IV ONE ×2 (22:45)
[2017-02-22 23:13] LABS: LACTIC ACID GHOST NOT REPORTABLE
[2017-02-22] MEDS ORDERED: SODIUM CHLORIDE 0.9% FLUSH 10 ML FLUSH IV FLUSH PRN (23:30)
[2017-02-22] MEDS ORDERED: NALOXONE HCL 0.4 MG/ML AMP IV PRN (23:30)
[2017-02-22] MEDS ORDERED: OSELTAMIVIR PHOSPHATE 75 MG CAP PO ONE (23:30)
--- NOTE | 2017-02-22 23:44 | RADRPT ---
EXAM DATE/TIME: 02/22/2017 23:17 [facility] COMPARISON: CT ABDOMEN & PELVIS W/O CONTRAST, July 14, 2016, 3:12. INDICATIONS : General weakness and diarrhea. ORAL CONTRAST: No oral contrast ingested. RADIATION DOSE: 9.96 CTDIvol (mGy) MEDICAL HISTORY : HIV. Gastroesophageal reflux disease. Chronic obstructive pulmonary disease.Hypertension. Asthma. SURGICAL HISTORY : None. ENCOUNTER: Initial ACUITY: 1 day PAIN SCALE: 0/10 LOCATION: Bilateral abdomen TECHNIQUE: Volumetric scanning of the abdomen and pelvis was performed. Using automated exposure control and ad justment of the mA and/or kV according to patient size, radiation dose was kept as low as reasonably achievable to obtain optimal diagnostic quality images. FINDINGS: LOWER LUNGS: The visualized lower lungs are clear. LIVER: Homogeneous density without lesion. There is no dilation of the biliary tree. No calcified gallston es. SPLEEN: Normal size without lesion. PANCREAS: Within normal limits. KIDNEYS: Normal in size and shape. There is no mass, stone, or hydronephrosis. ADRENAL GLANDS: Within normal limits. VASCULAR: There is no aortic aneurysm. BOWEL/MESENTERY: The stomach, small bowel, and colon demonstrate no acute abnormality. There is no free intraperitone al air or fluid. ABDOMINAL WALL: Within normal limits. RETROPERITONEUM: Suspect para-aortic adenopathy. BLADDER: No wall thickening or mass. REPRODUCTIVE: Within normal limits. INGUINAL: Mildly prominent bilateral inguinal lymph nodes MUSCULOSKELETAL: Within normal limits for patient age. CONCLUSION: Normal examination. The patient needs a good quality CT examination of the abdomen pelvis with IV and oral contrast for f ollowup. Awais Rhoades MD on February 22, 2017 at 23:33 Board Certified Radiologist. This report was verified electronically.
[2017-02-22 23:58] VITALS: BP 108/55; PULSE 68; RESP 18; TEMP 97.4; O2SAT 100
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
[2017-02-23] MEDS: POTASSIUM CHLOR 20 MEQ PREMIX 100 ML IV SCH ×4 (00:06→10:23)
[2017-02-23 00:25] VITALS: BP 106/58; PULSE 61; RESP 18; O2SAT 100
[2017-02-23 00:53] VITALS: BP 115/56; PULSE 62; RESP 18; O2SAT 100
[2017-02-23] MEDS ORDERED: POTASSIUM CHLORIDE 25 MEQ EFFERVESCENT TAB PO ONE (03:00)
[2017-02-23 04:00] VITALS: BP 113/63; PULSE 67; RESP 20; TEMP 99; O2SAT 100
[2017-02-23] MEDS ORDERED: POTASSIUM CHLORIDE 20 MEQ CONTROLLED RELEASE TAB PO ONE (04:15)
[2017-02-23] MEDS ORDERED: RESP: ALBUTEROL 2.5 MG/IPRATROPIUM 0.5 MG NEB (PRN) NEB (06:30)
[2017-02-23 07:59] VITALS: BP 117/67; PULSE 71; RESP 16; TEMP 98; O2SAT 99
[2017-02-23 08:00] VITALS: BP 117/67; PULSE 71; RESP 16; TEMP 98; O2SAT 99
--- NOTE | 2017-02-23 08:16 | EKG ---
Date Performed: 02/22/2017 Time Performed: 20:46:00 PTAGE: 41 years EKG: Sinus rhythm WITH OCCASIONAL VENTRICULAR PREMATURE COMPLEXES NONSPECIFIC T-WAVE ABNORMALITY BORDERLINE ECG PREVIOUS TRACING : 11/01/2016 23.22 Compared to previous tracing, nonspecific anterolateral ST abnormality is no longer evident. DOCTOR: Fernando Funes Interpretating Date/Time 02/23/2017 08:14:43
[2017-02-23 08:40] VITALS: BP 132/70; PULSE 73; RESP 16; TEMP 97.4; O2SAT 96
[2017-02-23] MEDS ORDERED: PANTOPRAZOLE SOD 40 MG DELAYED RELEASE TAB PO SCH (09:00)
[2017-02-23] MEDS ORDERED: OSELTAMIVIR PHOSPHATE 75 MG CAP PO SCH (09:00)
[2017-02-23] MEDS ORDERED: SODIUM CHLORIDE 0.9% FLUSH 10 ML FLUSH IV FLUSH SCH (09:00)
[2017-02-23] MEDS ORDERED: RESP: ALBUTEROL 2.5 MG/IPRATROPIUM 0.5 MG NEB (SCH) NEB (10:00)
[2017-02-23] MEDS ORDERED: POTASSIUM CHLORIDE 10 MEQ CONTROLLED RELEASE TAB PO ONE (11:00)
--- NOTE | 2017-03-12 11:59 | PD.AMA ---
Against Medical Advice Note Diagnosis: (1) Hypokalemia (2) Anemia Discharge Disposition: Against Medical Advice Pt Condition on Discharge: Fair Recommended Treatment Course informed [id number] that patient left AGAINST MEDICAL ADVICE despite not complaining replacement for potassium or treatment for anemia. Recommend strongly patient seek urgent medical attention. AMA Statement Patient Reji Nathan has decided to leave the hospital against medical advice. This patient has the capacity to refuse care and understands the risks of leaving, including permanent disability and/or , and has had an opportunity to ask questions about her condition. The patient has been informed that she may return for care at any time, and follow up has been arranged/ advised. Alec Luu MD Mar 12, 2017 11:59
== END 2017-02-23 11:11 | disposition left against medical advice (07) | DRG 193 ==
LOC: NEPC 19:53 → NEDA 22:55 → N07B 02-23 01:23
PROVIDERS: ADMIT Internal Medicine; ATTEND Internal Medicine
PROC: 30253N1 (ICD-10-PCS; principal; 2017-02-22)
DX: J10.1 Influenza due to other identified influenza virus with other respiratory manifestations (principal); B20 Human immunodeficiency virus [HIV] disease; R64 Cachexia; E87.2 Acidosis; Z68.1 Body mass index [BMI] 19.9 or less, adult; E83.51 Hypocalcemia; E86.0 Dehydration; E87.6 Hypokalemia; J44.9 Chronic obstructive pulmonary disease, unspecified; K21.9 Gastro-esophageal reflux disease without esophagitis; J45.909 Unspecified asthma, uncomplicated; I10 Essential (primary) hypertension; D64.9 Anemia, unspecified; F41.9 Anxiety disorder, unspecified
CPT/HCPCS: 36430; 71010; 74176; 80053; 81001; 83605; 83690; 83735; 83880; 84703; 85007; 85027; 85610; 85730; 86140; 86850; 86900; 86901; 86920; 86922; 87040; 87804; 93005; 96374; 96376; J0610; J2543; J3370; J3480; J7030; J7050; P9016

== ENCOUNTER 2017-03-21 15:44 | Inpatient (IN) | payer OTHER ==
[~2017-03-21] VITALS: Ht 160 cm; Wt 32.0 kg
[2017-03-21] VITALS (7 sets, daily range): BP systolic 97–114; BP diastolic 56–67; PULSE 65–93; RESP 14–28; TEMP 98.1–101.7; O2SAT 94–100
[~2017-03-21 15:44] MED LIST changes: -CEFT500T3 PO; -CLAR500T PO; +ETHA400T PO; -HYDR-3583 PO; -LACT PO; -MYAM400T8 PO; -PREZ600T2 PO; +PREZISTA PO; -PROM25TA5 PO; -PROM2SUP RECTAL; -VIRE300T2 PO; +VIREAD PO
[2017-03-21] MEDS ORDERED: SODIUM CHLOR 0.9% 1000 ML INJ 1,000 ML IV ONE ×2 (16:00→17:30)
[2017-03-21] MEDS ORDERED: ACETAMINOPHEN 325 MG TAB PO ONE ×2 (16:00→16:30)
--- NOTE | 2017-03-21 16:05 | PD ---
HPI Chief Complaint: General Weakness Time Seen by Provider: 16:02 Travel History International Travel<30 days: No Contact w/Intl Traveler<30days: No Traveled to known affect area: No History of Present Illness HPI 41-year-old female presents to the emergency department for evaluation of generalized pain, weakness, diarrhea. The patient reports HIV that has progressed to AIDS. She does not know her CD4 or viral load. She states that she is never known her counts. The patient states that she is not currently taking any of her medications due to being unable to get to them. The patient reports thrush. She states she has had diarrhea for several weeks. She reports a history of anemia. The patient states that she lives with her significant other who does not take care of her. He will not assist her. She has not been eating or drinking as well. She does complain of left arm and left leg pain from multiple falls that she states has been ongoing for several months. Patient does report a history of COPD and reports chronic shortness of breath. She denies any chest pain. She denies any abdominal pain. No vomiting. PFSH Past Medical History Arthritis: No Asthma: Yes Autoimmune Disease: Yes Blood Disorders: Yes (ANEMIA) Anxiety: Yes Depression: Yes Heart Rhythm Problems: No Cancer: No Cardiovascular Problems: No High Cholesterol: No Chemotherapy: No Chest Pain: No Congestive Heart Failure: No COPD: Yes Cerebrovascular Accident: No Diabetes: No Diminished Hearing: No Endocrine: No Gastrointestinal Disorders: Yes GERD: Yes Glaucoma: No Genitourinary: Yes (urinary frequency) Headaches: Yes (daily) Hepatitis: No Hiatal Hernia: No Hypertension: Yes Immune Disorder: Yes (hiv/aids chronic anemia) Kidney Stones: No Musculoskeletal: Yes Neurologic: Yes (neuropathy) Psychiatric: Yes Reproductive: No Respiratory: Yes Integumentary: Yes (ECZEMA) Immunizations Current: Yes Migraines: Yes Myocardial Infarction: No Radiation Therapy: No Renal Failure: No Seizures: No Sickle Cell Disease: No Sleep Apnea: No Thyroid Disease: No Ulcer: No ?: Not : 6 Para: 2 Miscarriage: 4 : 4 Ectopic : No Ovarian Cysts: No Tubal Ligation: No Past Surgical History Abdominal Surgery: Yes (polyps removed, endoscopy, esophageal ablation) AICD: No Appendectomy: No Arteriovenous Shunt: No Cardiac Surgery: No Cholecystectomy: No Ear Surgery: No Endocrine Surgery: No Eye Surgery: No Genitourinary Surgery: No Gynecologic Surgery: No Hysterectomy: No Insulin Pump: No Joint Replacement: No Oral Surgery: No Pacemaker: No Thoracic Surgery: No Other Surgery: Yes (polyp removal, endoscopy, esoph. ablation) Social History Alcohol Use: No Tobacco Use: Yes (1 PACK EVERY 3 DAYS) Substance Use: No Allergies-Medications (Allergen,Severity, Reaction): Coded Allergies: Cipro (Verified Allergy, Severe, HIVES, 03/21/17) Contrast Media (Verified Allergy, Severe, Hives, 03/21/17) Iodide Tincture (Verified Allergy, Severe, HIVES, 03/21/17) Lisinopril (Unverified Allergy, Severe, Swelling, 03/21/17) Wellbutrin (Verified Allergy, Severe, HIVES, 03/21/17) *MDRO Multi-Drug Resistant Organism (Verified Adverse Reaction, Unknown, ) MRSA (leg wound) - 2008 MRSA PCR Screen #1 NEGATIVE - 11/04/16 Reported Meds & Prescriptions Reported Meds & Active Scripts Active Reported [Viread] 300 Mg PO DAILY Ethambutol (Ethambutol HCl) 400 Mg Tab 400 Mg PO DAILY [Prezista] 600 Mg PO BID Norvir (Ritonavir) 100 Mg Cap 100 Mg PO BID Mepron Liq (Atovaquone) 750 Mg/5 Ml Susp 1,500 Mg PO DAILY Take with food. Tivicay (Dolutegravir Sodium) 50 Mg Tab 50 Mg PO BID Proair Hfa 8.5 GM Inh (Albuterol Sulfate) 90 Mcg/Act Aer 2 Puff INH Q6H PRN 108 mcg/actuation Albuterol Neb (Albuterol Sulfate) 1.25 Mg/3 Ml Neb 1.25 Mg NEB TID NEB PRN Review of Systems Except as stated in HPI: all other systems reviewed are Neg Physical Exam Narrative GENERAL: Extremely thin female patient appears to be malnourished. Rectal temperature is 101.7. SKIN: Focused skin assessment warm/dry. Patient has ulcer to the sacrum. HEAD: Normocephalic. Atraumatic. ENT: Mucosa pink and moist. No erythema or exudates. No uvular edema. No uvular , palatal, or tonsillar deviation. Airway patent. Thrush noted throughout oral cavity. Nasal turbinates appear normal without nasal blood, purulent drainage or septal hematoma. EYES: No scleral icterus. No injection or d atraumatic. NECK: Supple, trachea midline. No JVD or lymphadenopathy. CARDIOVASCULAR: Regular rate and rhythm without murmurs, gallops, or rubs. RESPIRATORY: Breath sounds equal bilaterally. No accessory muscle use. Lungs sounds are clear to auscultation. GASTROINTESTINAL: Abdomen soft, non-tender, nondistended. MUSCULOSKELETAL: No cyanosis, or edema. Patient has tenderness over left upper arm, left knee and ankle. BACK: Nontender without obvious deformity. No CVA tenderness. Data Data Last Documented VS Vital Signs Date Time Temp Pulse Resp B/P Pulse Ox O2 Delivery O2 Flow Rate FiO2 03/21/17 16:07 97 Room Air 03/21/17 16:06 20 03/21/17 15:49 101.7 93 107/60 Orders Electrocardiogram (03/21/17 15:58) Complete Blood Count With Diff (03/21/17 15:58) Comprehensive Metabolic Panel (03/21/17 15:58) Prothrombin Time / Inr (Pt) (03/21/17 15:58) Act Partial Throm Time (Ptt) (03/21/17 15:58) Lactic Acid Sepsis Protocol (03/21/17 15:58) Magnesium (Mg) (03/21/17 15:58) Lipase (03/21/17 15:58) Urinalysis - C+S If Indicated (03/21/17 15:58) Blood Culture (03/21/17 15:58) Chest, Single Ap (03/21/17 15:58) Blood Glucose (03/21/17 15:58) Ecg Monitoring (03/21/17 15:58) Iv Access Insert/Monitor (03/21/17 15:58) Cath For Specimen (03/21/17 15:58) Oximetry (03/21/17 15:58) Oxygen Administration (03/21/17 15:58) Acetaminophen (Tylenol) (03/21/17 16:00) Ct Abd/Pel W/O Iv Contrast (03/21/17 15:58) Stool Wbc (Leukocytes) (03/21/17 15:58) Enteric Path (Stool) (03/21/17 15:58) C Diff Toxin Pcr (03/21/17 15:58) Sodium Chlor 0.9% 1000 Ml Inj (Ns 1000 M (03/21/17 16:00) Influenzae A/B Antigen (03/21/17 16:02) Humerus (Min 2vws) (03/21/17 ) Tibia/Fibula (Ap/Lat) (03/21/17 ) Acetaminophen (Tylenol) (03/21/17 16:30) Urine Culture (03/21/17 16:30) Potassium Chlor 20 Meq Premix (Kcl 20 Me (03/21/17 17:30) Sodium Chlor 0.9% 1000 Ml Inj (Ns 1000 M (03/21/17 17:30) Calcium Gluconate Inj (Calcium Gluconate (03/21/17 17:30) Vancomycin Inj (Vancomycin Inj) (03/21/17 17:45) Piperacil-Tazo 4.5 Gm Premix (Zosyn 4.5 (03/21/17 17:45) Potassium Chloride Powder (Kcl Powder) (03/21/17 17:45) Admit Order (Ed Use Only) (03/21/17 17:51) Labs Laboratory Tests Test 03/21/17 03/21/17 16:20 16:30 White Blood Count 9.3 TH/MM3 Red Blood Count 3.37 MIL/MM3 Hemoglobin 9.1 GM/DL Hematocrit 27.9 % Mean Corpuscular Volume 82.6 FL Mean Corpuscular Hemoglobin 27.1 PG Mean Corpuscular Hemoglobin 32.8 % Concent Red Cell Distribution Width 18.0 % Platelet Count 271 TH/MM3 Mean Platelet Volume 10.3 FL Neutrophils (%) (Auto) % Lymphocytes (%) (Auto) % Monocytes (%) (Auto) % Eosinophils (%) (Auto) % Basophils (%) (Auto) % Neutrophils # (Auto) TH/MM3 Lymphocytes # (Auto) TH/MM3 Monocytes # (Auto) TH/MM3 Eosinophils # (Auto) TH/MM3 Basophils # (Auto) TH/MM3 CBC Comment AUTO DIFF Differential Total Cells 100 Counted Neutrophils % (Manual) 84 % Band Neutrophils % 6 % Lymphocytes % 6 % Monocytes % 3 % Eosinophils % 1 % Neutrophils # (Manual) 8.4 TH/MM3 Differential Comment FINAL DIFF MANUAL Platelet Estimate NORMAL Platelet Morphology Comment NORMAL Red Cell Morphology Comment NORMAL Prothrombin Time 13.0 SEC Prothromb Time International 1.2 RATIO Ratio Activated Partial 43.6 SEC Thromboplast Time Sodium Level 136 MEQ/L Potassium Level 1.8 MEQ/L Chloride Level 103 MEQ/L Carbon Dioxide Level 21.6 MEQ/L Anion Gap 11 MEQ/L Blood Urea Nitrogen 15 MG/DL Creatinine 1.09 MG/DL Estimat Glomerular Filtration 67 ML/MIN Rate Random Glucose 110 MG/DL Lactic Acid Level 3.5 mmol/L Calcium Level 7.4 MG/DL Protein Corrected Calcium 7.4 MG/DL Magnesium Level 1.7 MG/DL Total Bilirubin 0.2 MG/DL Aspartate Amino Transf 12 U/L (AST/SGOT) Alanine Aminotransferase 11 U/L (ALT/SGPT) Alkaline Phosphatase 167 U/L Total Protein 7.3 GM/DL Albumin 1.3 GM/DL Lipase 48 U/L Urine Color YELLOW Urine Turbidity CLEAR Urine pH 6.5 Urine Specific [place] 1.004 Urine Protein 30 mg/dL Urine Glucose (UA) NEG mg/dL Urine Ketones NEG mg/dL Urine Occult Blood NEG Urine Nitrite NEG Urine Bilirubin NEG Urine Urobilinogen LESS THAN 2.0 MG/DL Urine Leukocyte Esterase NEG Urine RBC LESS THAN 1 /hpf Urine WBC 3 /hpf Urine Amorphous Sediment RARE Urine Bacteria RARE /hpf Microscopic Urinalysis Comment CATH-CULTURE IND MDM Medical Decision Making Medical Screen Exam Complete: Yes Emergency Medical Condition: Yes Medical Record Reviewed: Yes Interpretation(s) chest x-ray -CONCLUSION: No acute cardiopulmonary disease. Scoliosis of the thoraco-lumbar spine. x-ray left humerus - CONCLUSION: No acute disease. x-ray left tibia/fibula - CONCLUSION: Unremarkable examination of the left tibia. Differential Diagnosis Pneumonia versus electrolyte abnormality versus dehydration versus anemia versus colitis versus influenza versus sepsis versus UTI versus pyelonephritis Narrative Course 41-year-old female presents to the emergency Department from home for evaluation of generalized weakness and pain as well as diarrhea that has been ongoing for several weeks. She reports that her significant other does not help her anymore. She has not been eating or drinking. Patient is cachectic on exam. Rectal temp is 101.7. EKG, CBC, CMP, lactic acid, magnesium, lipase, blood cultures 2, UA, and influenza are ordered and pending. Chest x-ray, x- ray of the left humerus, x-ray left tibia/fibula, CT abdomen/pelvis without IV contrast is ordered and pending. Stool WBC, enteric pathogens, C. difficile are ordered and pending. Patient is given normal saline 1 L IV bolus, Tylenol 650 mg by mouth. EKG shows sinus rhythm, LVH, HR 87. CBC shows normal WBC count of 9.3, hemoglobin 9.1, crit 27.9, neutrophil percentage 84. CMP shows hypokalemia at 1.8, protein corrected calcium 7.4 Lactic acid is elevated at 3.5. Magnesium is 1.7. Lipase is 48. PT is 13.0, INR 1.2, PTT 43.6. UA shows rare bacteria. Influenza is negative. Chest x-ray shows no acute cardiopulmonary disease. X -ray of the left humerus shows no acute disease. X-ray of the left tibia/ fibula is unremarkable. CT abdomen/pelvis is pending. Patient is given a second liter IV normal saline bolus, Zosyn 4.5 g IV, vancomycin 1 g IV, potassium chloride 20 meq IV 2, potassium 40 meq PO, calcium gluconate 1 GM IV. 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 Dr. Ernandez accepted admission. Sepsis Criteria SIRS Criteria (2 or more): Temp > 100.9 or < 96.8, Heart rate over 90 Diagnosis Primary Impression: Febrile illness Additional Impressions: AIDS (acquired immune deficiency syndrome) Hypokalemia Hypocalcemia Admitting Information Admitting Physician Requests: Admit Judie Randall Mar 21, 2017 16:04
[2017-03-21 16:45] LABS: HEMATOCRIT 27.9 % (35.0-46.0); MEAN CELL VOLUME 82.6 FL (80.0-100.0); MEAN CORPUSCULAR HEMOGLOBIN 27.1 PG (27.0-34.0); MEAN CORPUSCULAR HGB CONC 32.8 % (32.0-36.0); PLATELET COUNT 271 TH/MM3 (150-450); RED BLOOD COUNT 3.37 MIL/MM3 (4.00-5.30); WHITE BLOOD COUNT 9.3 TH/MM3 (4.0-11.0)
[2017-03-21 16:50] LABS: HEMO FLAGS AUTO DIFF
[2017-03-21 16:51] LABS: BACTERIA, URINE RARE /hpf; BLOOD, URINE NEG (NEG); GLUCOSE,URINE NEG (NEG); KETONE, URINE NEG (NEG); NITRITE,URINE NEG (NEG); PH, URINE 6.5 (5.0-8.5); URINE COLOR YELLOW (YELLW/STRAW)
[2017-03-21 16:52] LABS: COMMENT (UR) CATH-CULTURE IND; CULTURE IF INDICATED CATH CULTURE IND
[2017-03-21 16:56] LABS: APTT (PATIENT) 43.6 SEC (24.3-30.1); INTERNATIONAL NORMALIZED RATIO 1.2 RATIO
[2017-03-21 17:12] LABS: BICARBONATE 21.6 MEQ/L (21.0-32.0); MAGNESIUM 1.7 MG/DL (1.5-2.5); TOTAL BILIRUBIN ADULT 0.2 MG/DL (0.2-1.0)
[2017-03-21 17:13] LABS: BANDS 6 % (0-6); EOSINOPHILS 1 % (0-4); NEUTROPHIL # MANUAL DIFF 8.4 TH/MM3 (1.8-7.7); POLYS (SEG NEUTROPHILS) 84 % (16-70); WBC DIFF SAMPLE 100
--- NOTE | 2017-03-21 17:13 | RADRPT ---
EXAM DATE/TIME: 03/21/2017 16:39 [facility] COMPARISON: CHEST SINGLE AP, February 22, 2017, 20:40. INDICATIONS : Fever MEDICAL HISTORY : Hypertension. Gastroesophageal reflux disease. Chronic obstructive pulmonary disease. HIV, Asthma SURGICAL HISTORY : None. ENCOUNTER: Initial ACUITY: 1 day PAIN SCORE: 0/10 LOCATION: Bilateral chest FINDINGS: A single view of the chest demonstrates the lungs to be symmetrically aerated without evidence of mas s, infiltrate or effusion. The cardiomediastinal contours are unremarkable. Scoliosis of the thoraco -lumbar spine is noted. CONCLUSION: No acute cardiopulmonary disease. Scoliosis of the thoraco-lumbar spine. Stalin Sanches MD on March 21, 2017 at 17:10 Board Certified Radiologist. This report was verified electronically.
--- NOTE | 2017-03-21 17:13 | RADRPT ---
EXAM DATE/TIME: 03/21/2017 16:44 [facility] COMPARISON: No previous studies available for comparison. INDICATIONS : Left tibia pain, falls MEDICAL HISTORY : Hypertension. Chronic obstructive pulmonary disease. Gastroesophageal reflux disease. HIV, Asthma SURGICAL HISTORY : None. ENCOUNTER: Initial ACUITY: 2 weeks PAIN SCORE: 6/10 LOCATION: Left Tibia FINDINGS: Two view examination of the left tibia demonstrates no evidence of fracture or dislocation. Bony min eralization is normal. The soft tissue structures are intact. CONCLUSION: Unremarkable examination of the left tibia. Awais Williamson MD on March 21, 2017 at 17:09 Board Certified Radiologist. This report was verified electronically.
[2017-03-21 17:14] LABS: PLATELET ESTIMATE SMEAR NORMAL (NORMAL); PLATELET MORPHOLOGY NORMAL (NORMAL); SCAN/DIFF FINAL DIFF MANUAL
--- NOTE | 2017-03-21 17:15 | RADRPT ---
EXAM DATE/TIME: 03/21/2017 16:42 [facility] COMPARISON: No previous studies available for comparison. INDICATIONS : Left humerus pain, falls MEDICAL HISTORY : Hypertension. Chronic obstructive pulmonary disease. Gastroesophageal reflux disease. HIV, Asthma SURGICAL HISTORY : None. ENCOUNTER: Initial ACUITY: 3 weeks PAIN SCORE: 4/10 LOCATION: Left Humerus FINDINGS: Two view examination of the left humerus demonstrates no evidence of fracture or dislocation. Bony m ineralization is normal. The soft tissue structures are intact. CONCLUSION: No acute disease. Stalin Sanches MD on March 21, 2017 at 17:12 Board Certified Radiologist. This report was verified electronically.
[2017-03-21 17:22] LABS: CALCIUM-PROTEIN CORRECTED 7.4 MG/DL (8.5-10.1); POTASSIUM 1.8 MEQ/L (3.5-5.1)
[2017-03-21] MEDS ORDERED: CALCIUM GLUCONATE INJ 1 GM in SODIUM CHLORIDE 0.9% INJ 100 ML IV ONE (17:30)
[2017-03-21] MEDS: POTASSIUM CHLORIDE 20 MEQ PWD PACKET PO ONE ×2 (17:45→18:43)
[2017-03-21] MEDS ORDERED: PIPERACIL-TAZO 4.5 GM PREMIX 100 ML IV ONE (17:45)
[2017-03-21] MEDS ORDERED: VANCOMYCIN INJ 1,000 MG in SODIUM CHLOR 0.9% 250 ML INJ 250 ML IV ONE (17:45)
--- NOTE | 2017-03-21 17:54 | PD ---
Physical Exam Narrative I, Dr. Green, have reviewed the advance practice practitioner's documentation and am in agreement, met with the patient face to face, made the diagnosis, and the medical decision making was done by me. *My assessment and Findings: Failure to thrive vs. electrolyte abnormality vs. sepsis 41yo F with AIDS not on medication here with generalized weakness, diarrhea for a long time and decreased PO intake. Pt is cachetic and has not been eating well. Pt with fever and bandemia. +Oral thrush. Labs reviewed, no leukocytosis but with bandemia. H/H low at 9.1/27.9. Severe hypokalemia at 1.8. Pt given 20mEql IV x2 and 40mEq KCl POx2. Lactic acid elevated at 3.5. Corrected calcium at 7.4, pt given calcium gluconate. Abdomen is soft, nontender. CXR showed no acute cardiopulmonary disease. Pt is febrile here at 101.7F, HR at 93bpm. Pt given vancomycin and zosyn. Pt to be admitted to ip counsel. Data Data Last Documented VS Vital Signs Date Time Temp Pulse Resp B/P Pulse Ox O2 Delivery O2 Flow Rate FiO2 03/21/17 17:00 91 28 114/67 94 Room Air 03/21/17 15:49 101.7 Orders Electrocardiogram (03/21/17 15:58) Complete Blood Count With Diff (03/21/17 15:58) Comprehensive Metabolic Panel (03/21/17 15:58) Prothrombin Time / Inr (Pt) (03/21/17 15:58) Act Partial Throm Time (Ptt) (03/21/17 15:58) Lactic Acid Sepsis Protocol (03/21/17 15:58) Magnesium (Mg) (03/21/17 15:58) Lipase (03/21/17 15:58) Urinalysis - C+S If Indicated (03/21/17 15:58) Blood Culture (03/21/17 15:58) Chest, Single Ap (03/21/17 15:58) Blood Glucose (03/21/17 15:58) Ecg Monitoring (03/21/17 15:58) Iv Access Insert/Monitor (03/21/17 15:58) Cath For Specimen (03/21/17 15:58) Oximetry (03/21/17 15:58) Oxygen Administration (03/21/17 15:58) Acetaminophen (Tylenol) (03/21/17 16:00) Ct Abd/Pel W/O Iv Contrast (03/21/17 15:58) Stool Wbc (Leukocytes) (03/21/17 15:58) Enteric Path (Stool) (03/21/17 15:58) C Diff Toxin Pcr (03/21/17 15:58) Sodium Chlor 0.9% 1000 Ml Inj (Ns 1000 M (03/21/17 16:00) Influenzae A/B Antigen (03/21/17 16:02) Humerus (Min 2vws) (03/21/17 ) Tibia/Fibula (Ap/Lat) (03/21/17 ) Acetaminophen (Tylenol) (03/21/17 16:30) Urine Culture (03/21/17 16:30) Potassium Chlor 20 Meq Premix (Kcl 20 Me (03/21/17 17:30) Sodium Chlor 0.9% 1000 Ml Inj (Ns 1000 M (03/21/17 17:30) Calcium Gluconate Inj (Calcium Gluconate (03/21/17 17:30) Piperacil-Tazo 4.5 Gm Premix (Zosyn 4.5 (03/21/17 17:45) Potassium Chloride Powder (Kcl Powder) (03/21/17 17:45) Admit Order (Ed Use Only) (03/21/17 17:51) Labs Laboratory Tests Test 03/21/17 03/21/17 16:20 16:30 White Blood Count 9.3 TH/MM3 Red Blood Count 3.37 MIL/MM3 Hemoglobin 9.1 GM/DL Hematocrit 27.9 % Mean Corpuscular Volume 82.6 FL Mean Corpuscular Hemoglobin 27.1 PG Mean Corpuscular Hemoglobin 32.8 % Concent Red Cell Distribution Width 18.0 % Platelet Count 271 TH/MM3 Mean Platelet Volume 10.3 FL Neutrophils (%) (Auto) % Lymphocytes (%) (Auto) % Monocytes (%) (Auto) % Eosinophils (%) (Auto) % Basophils (%) (Auto) % Neutrophils # (Auto) TH/MM3 Lymphocytes # (Auto) TH/MM3 Monocytes # (Auto) TH/MM3 Eosinophils # (Auto) TH/MM3 Basophils # (Auto) TH/MM3 CBC Comment AUTO DIFF Differential Total Cells 100 Counted Neutrophils % (Manual) 84 % Band Neutrophils % 6 % Lymphocytes % 6 % Monocytes % 3 % Eosinophils % 1 % Neutrophils # (Manual) 8.4 TH/MM3 Differential Comment FINAL DIFF MANUAL Platelet Estimate NORMAL Platelet Morphology Comment NORMAL Red Cell Morphology Comment NORMAL Prothrombin Time 13.0 SEC Prothromb Time International 1.2 RATIO Ratio Activated Partial 43.6 SEC Thromboplast Time Sodium Level 136 MEQ/L Potassium Level 1.8 MEQ/L Chloride Level 103 MEQ/L Carbon Dioxide Level 21.6 MEQ/L Anion Gap 11 MEQ/L Blood Urea Nitrogen 15 MG/DL Creatinine 1.09 MG/DL Estimat Glomerular Filtration 67 ML/MIN Rate Random Glucose 110 MG/DL Lactic Acid Level 3.5 mmol/L Calcium Level 7.4 MG/DL Protein Corrected Calcium 7.4 MG/DL Magnesium Level 1.7 MG/DL Total Bilirubin 0.2 MG/DL Aspartate Amino Transf 12 U/L (AST/SGOT) Alanine Aminotransferase 11 U/L (ALT/SGPT) Alkaline Phosphatase 167 U/L Total Protein 7.3 GM/DL Albumin 1.3 GM/DL Prealbumin 4 MG/DL Lipase 48 U/L Urine Color YELLOW Urine Turbidity CLEAR Urine pH 6.5 Urine Specific Selmer 1.004 Urine Protein 30 mg/dL Urine Glucose (UA) NEG mg/dL Urine Ketones NEG mg/dL Urine Occult Blood NEG Urine Nitrite NEG Urine Bilirubin NEG Urine Urobilinogen LESS THAN 2.0 MG/DL Urine Leukocyte Esterase NEG Urine RBC LESS THAN 1 /hpf Urine WBC 3 /hpf Urine Amorphous Sediment RARE Urine Bacteria RARE /hpf Microscopic Urinalysis Comment CATH-CULTURE IND MDM Supervised Visit with CAMILLE: Yes Critical Care Narrative Aggregate critical care time was 50 minutes. Time to perform other separately billable procedures was not included in the critical care time. My time did not include minutes spent treating any other patients simultaneously or on activities that did not directly contribute to the patient's treatment. The services I provided to this patient were to treat and/or prevent clinically significant deterioration that could result in: cardiovascular collapse or . I provided critical care services requiring my management, as noted below: Chart data review, documentation time, medication orders and management, vital sign assessments/reviewing monitor data, ordering and reviewing lab tests, ordering and interpreting/reviewing x-rays and diagnostic studies, care of the patient and discussion of the patient with the admitting physicians. Diagnosis Primary Impression: Febrile illness Additional Impressions: AIDS (acquired immune deficiency syndrome) Hypokalemia Hypocalcemia Anabell Green DO Mar 21, 2017 17:54
--- NOTE | 2017-03-21 18:00 | HHI.HP ---
HPI Service Critical Care Medicine Primary Care Physician Unknown Admission Diagnosis febrile illness, AIDS, severe hypokalemia, hypocalcemia Diagnosis: Chief Complaint: Fever, fatigue Travel History International Travel<30 Days: No Contact w/Intl Traveler <30 Da: No Traveled to Known Affected Are: No History of Present Illness Emaciated 41 y/o untreated AIDS patient with fever and bandemia. Watery diarrhea for over 3 days. No abdominal pain, cough, chills, dysuria. Cultures drawn, broad abx and fungal coverage started. Sepsis source workup begun. Prealbumin 4, indicative of protein-calorie malnutrition. Review of Systems Constitutional: COMPLAINS OF: Fever Endocrine: DENIES: Abnorml menstrual pattern, Heat/cold intolerance, Polydipsia , Polyuria, Polyphagia Eyes: DENIES: Blurred vision, Diplopia, Eye inflammation, Eye pain, Vision loss , Photosensitivity, Double Vision Ears, nose, mouth, throat: DENIES: Tinnitus, Hearing loss, Vertigo, Nasal discharge, Oral lesions, Throat pain, Hoarseness, Ear Pain, Running Nose, Epistaxis, Sinus Pain, Toothache, Odynophagia Respiratory: DENIES: Apneas, Cough, Snoring, Wheezing, Hemoptysis, Sputum production, Shortness of breath Cardiovascular: DENIES: Chest pain, Palpitations, Syncope, Dyspnea on Exertion , PND, Lower Extremity Edema, Orthopnea, Claudication Gastrointestinal: COMPLAINS OF: Diarrhea, Anorexia Genitourinary: DENIES: Abnormal vaginal bleeding, Dysmenorrhea, Dyspareunia, Sexual dysfunction, Urinary frequency, Urinary incontinence, Urgency, Hematuria , Dysuria, Nocturia, Vaginal discharge Hematologic/lymphatic: COMPLAINS OF: Bruising ROS No headache, neck pain. Past Family Social History Allergies: Coded Allergies: Cipro (Verified Allergy, Severe, HIVES, 03/21/17) Contrast Media (Verified Allergy, Severe, Hives, 03/21/17) Iodide Tincture (Verified Allergy, Severe, HIVES, 03/21/17) Lisinopril (Unverified Allergy, Severe, Swelling, 03/21/17) Wellbutrin (Verified Allergy, Severe, HIVES, 03/21/17) *MDRO Multi-Drug Resistant Organism (Verified Adverse Reaction, Unknown, ) MRSA (leg wound) - 2008 MRSA PCR Screen #1 NEGATIVE - 11/04/16 Past Medical History Past Medical History Arthritis: No Asthma: Yes Autoimmune Disease: Yes Blood Disorders: Yes (ANEMIA) Anxiety: Yes Depression: Yes Heart Rhythm Problems: No Cancer: No Cardiovascular Problems: No High Cholesterol: No Chemotherapy: No Chest Pain: No Congestive Heart Failure: No COPD: Yes Cerebrovascular Accident: No Diabetes: No Diminished Hearing: No Endocrine: No Gastrointestinal Disorders: Yes GERD: Yes Glaucoma: No Genitourinary: Yes (urinary frequency) Headaches: Yes (daily) Hepatitis: No Hiatal Hernia: No Hypertension: Yes Immune Disorder: Yes (hiv/aids chronic anemia) Kidney Stones: No Musculoskeletal: Yes Neurologic: Yes (neuropathy) Psychiatric: Yes Reproductive: No Respiratory: Yes Integumentary: Yes (ECZEMA) Immunizations Current: Yes Migraines: Yes Myocardial Infarction: No Radiation Therapy: No Renal Failure: No Seizures: No Sickle Cell Disease: No Sleep Apnea: No Thyroid Disease: No Ulcer: No ?: Not : 6 Para: 2 Miscarriage: 4 : 4 Ectopic : No Ovarian Cysts: No Tubal Ligation: No Past Surgical History Abdominal Surgery: Yes (polyps removed, endoscopy, esophageal ablation) AICD: No Appendectomy: No Arteriovenous Shunt: No Cardiac Surgery: No Cholecystectomy: No Ear Surgery: No Endocrine Surgery: No Eye Surgery: No Genitourinary Surgery: No Gynecologic Surgery: No Hysterectomy: No Insulin Pump: No Joint Replacement: No Oral Surgery: No Pacemaker: No Thoracic Surgery: No Other Surgery: Yes (polyp removal, endoscopy, esoph. ablation) Social History Alcohol Use: No Tobacco Use: Yes (1 PACK EVERY 3 DAYS) Substance Use: No Allergies-Medications Allergies-Medications (Allergen,Severity, Reaction): Coded Allergies: Cipro (Verified Allergy, Severe, HIVES, 03/21/17) Contrast Media (Verified Allergy, Severe, Hives, 03/21/17) Iodide Tincture (Verified Allergy, Severe, HIVES, 03/21/17) Lisinopril (Unverified Allergy, Severe, Swelling, 03/21/17) Wellbutrin (Verified Allergy, Severe, HIVES, 03/21/17) *MDRO Multi-Drug Resistant Organism (Verified Adverse Reaction, Unknown, ) MRSA (leg wound) - 2008 MRSA PCR Screen #1 NEGATIVE - 11/04/16 Reported Meds & Prescriptions Reported Meds & Active Scripts Active Reported [Viread] 300 Mg PO DAILY Ethambutol (Ethambutol HCl) 400 Mg Tab 400 Mg PO DAILY [Prezista] 600 Mg PO BID Norvir (Ritonavir) 100 Mg Cap 100 Mg PO BID Mepron Liq (Atovaquone) 750 Mg/5 Ml Susp 1,500 Mg PO DAILY Take with food. Tivicay (Dolutegravir Sodium) 50 Mg Tab 50 Mg PO BID Proair Hfa 8.5 GM Inh (Albuterol Sulfate) 90 Mcg/Act Aer 2 Puff INH Q6H PRN 108 mcg/actuation Albuterol Neb (Albuterol Sulfate) 1.25 Mg/3 Ml Neb 1.25 Mg NEB TID NEB PRN Physical Exam Vital Signs Vital Signs Date Time Temp Pulse Resp B/P Pulse Ox O2 Delivery O2 Flow Rate FiO2 03/21/17 16:07 97 Room Air 03/21/17 16:06 20 97 Room Air 03/21/17 15:49 101.7 93 14 107/60 97 Physical Exam Gen: Surprisingly alert. Head: Normal. Neck: Supple, airway patent. No pain to motion. Lungs: Clear, no wheezes or crackles. Comfortable respiratory pattern. Heart: NL S1S2, RRR. Neck veins flat. Back: Punctate skin breakdown midline over coccyx. Abdomen: Soft, nontender, no guarding or peritoneal irritation. BS active. No distention. Extremities: Thin, wasted. Well perfused. Neuro: Weak but moves 4 limbs to command. O X 3, good memory. LADI. Laboratory Laboratory Tests Test 03/21/17 03/21/17 16:20 16:30 White Blood Count 9.3 Red Blood Count 3.37 Hemoglobin 9.1 Hematocrit 27.9 Mean Corpuscular Volume 82.6 Mean Corpuscular Hemoglobin 27.1 Mean Corpuscular Hemoglobin 32.8 Concent Red Cell Distribution Width 18.0 Platelet Count 271 Mean Platelet Volume 10.3 Neutrophils (%) (Auto) Lymphocytes (%) (Auto) Monocytes (%) (Auto) Eosinophils (%) (Auto) Basophils (%) (Auto) Neutrophils # (Auto) Lymphocytes # (Auto) Monocytes # (Auto) Eosinophils # (Auto) Basophils # (Auto) CBC Comment AUTO DIFF Differential Total Cells 100 Counted Neutrophils % (Manual) 84 Band Neutrophils % 6 Lymphocytes % 6 Monocytes % 3 Eosinophils % 1 Neutrophils # (Manual) 8.4 Differential Comment FINAL DIFF MANUAL Platelet Estimate NORMAL Platelet Morphology Comment NORMAL Red Cell Morphology Comment NORMAL Prothrombin Time 13.0 Prothromb Time International 1.2 Ratio Activated Partial 43.6 Thromboplast Time Sodium Level 136 Potassium Level 1.8 Chloride Level 103 Carbon Dioxide Level 21.6 Anion Gap 11 Blood Urea Nitrogen 15 Creatinine 1.09 Estimat Glomerular Filtration 67 Rate Random Glucose 110 Lactic Acid Level 3.5 Calcium Level 7.4 Protein Corrected Calcium 7.4 Magnesium Level 1.7 Total Bilirubin 0.2 Aspartate Amino Transf 12 (AST/SGOT) Alanine Aminotransferase 11 (ALT/SGPT) Alkaline Phosphatase 167 Total Protein 7.3 Albumin 1.3 Lipase 48 Urine Color YELLOW Urine Turbidity CLEAR Urine pH 6.5 Urine Specific Pierz 1.004 Urine Protein 30 Urine Glucose (UA) NEG Urine Ketones NEG Urine Occult Blood NEG Urine Nitrite NEG Urine Bilirubin NEG Urine Urobilinogen LESS THAN 2.0 Urine Leukocyte Esterase NEG Urine RBC LESS THAN 1 Urine WBC 3 Urine Amorphous Sediment RARE Urine Bacteria RARE Microscopic Urinalysis Comment CATH-CULTURE IND Date/Time Procedure Status Source Growth 03/21/17 16:30 Urine Culture Received Urine Catheterized Urine Pending 03/21/17 16:25 Aerobic Blood Culture Received Blood Peripheral Pending 03/21/17 16:25 Anaerobic Blood Culture Received Blood Peripheral Pending 03/21/17 16:15 Influenza Types A,B Antigen (LAURIE) - Final Complete Nasal Aspirate NEGATIVE FOR FLU A AND B ANTIGEN.... Result Diagram: 03/21/17 1620 03/21/17 1620 Assessment and Plan Assessment and Plan Assessment: 1. AIDS (acquired immune deficiency syndrome) 2. Hypokalemia 3. Hypocalcemia 4. Thrush 5. Protein calorie malnutrition Plan: 1. Jorge culture. 2. Broad abx coverage. 3. CD4 and viral load, restart anti-virals. 4. Aggressive hydration. 5. Nutritional assessment. 6. Protonix. 7. Heparin bid sq. Overall impression: Severely cachectic woman with largely untreated HIV now critically ill with febrile illness, bandemia, dehydration. Critical Care 42 mins Julián George MD Mar 21, 2017 18:00
[2017-03-21] MEDS: POTASSIUM CHLOR 20 MEQ PREMIX 100 ML IV SCH ×2 (18:11→21:54)
[2017-03-21] MEDS ORDERED: POTASSIUM CHLORIDE 20 MEQ PWD PACKET PO ONE (18:15)
[2017-03-21 18:36] LABS: LACTIC ACID GHOST NOT REPORTABLE
[2017-03-21] MEDS ORDERED: ONDANSETRON HCL 4 MG/2 ML VIAL IV PRN (18:45)
[2017-03-21] MEDS ORDERED: MAGNESIUM HYDROXIDE SUSP 30 ML CUP PO PRN (18:45)
[2017-03-21] MEDS ORDERED: LACTULOSE SYRUP 20 GM/30 ML CUP PO PRN (18:45)
[2017-03-21] MEDS ORDERED: BISACODYL 10 MG SUPP RECTAL PRN (18:45)
[2017-03-21] MEDS ORDERED: CHLORHEXIDINE GLUCONATE 2 % 1 PACK (2 CLOTHS) TOP PRN (18:45)
[2017-03-21] MEDS ORDERED: MISCELLANEOUS NURSING INFORMATION XX SCH (18:45)
[2017-03-21] MEDS ORDERED: RESP: ALBUTEROL 2.5 MG/IPRATROPIUM 0.5 MG NEB (PRN) INH (18:45)
[2017-03-21] MEDS ORDERED: SENNOSIDES 8.6 MG TAB PO PRN (18:45)
[2017-03-21] MEDS ORDERED: ACETAMINOPHEN 325 MG TAB PO PRN (18:45)
[2017-03-21] MEDS ORDERED: Vancomycin Consult Pharmacy 1 EA OTHER SCH (18:45)
[2017-03-21] MEDS: SODIUM CHLOR 0.9% 1000 ML INJ 1,000 ML IV SCH ×2 (19:00→21:55)
--- NOTE | 2017-03-21 19:11 | RADRPT ---
EXAM DATE/TIME: 03/21/2017 18:42 [facility] COMPARISON: CT ABDOMEN & PELVIS W/O CONTRAST, February 22, 2017, 23:17. INDICATIONS : General weakness and diarrhea for two months. ORAL CONTRAST: No oral contrast ingested. RADIATION DOSE: 9.96 CTDIvol (mGy) MEDICAL HISTORY : HIV. Hypertension. SURGICAL HISTORY : polyps removed, esophageal ablation ENCOUNTER: Initial ACUITY: 1 day PAIN SCALE: Non-responsive LOCATION: Bilateral abdomen TECHNIQUE: Volumetric scanning of the abdomen and pelvis was performed. Using automated exposure control and ad justment of the mA and/or kV according to patient size, radiation dose was kept as low as reasonably achievable to obtain optimal diagnostic quality images. DICOM format image data is available electro nically for review and comparison. FINDINGS: The examination is markedly limited due to the patient's poor condition. Evaluation of the solid org ans of the abdomen is also limited by the lack of intravenous contrast. Hepatomegaly is noted. No a cute obstructive uropathy is noted. No bowel obstruction is noted. No calcified gallstone is noted. A Donaldson catheter is noted within the urinary bladder which is nondistended. No free intraperitonea l air is noted. Degenerative changes and scoliosis of the thoracolumbar spine are noted. CONCLUSION: 1. Hepatomegaly. 2. No evidence of bowel obstruction. 3. Degenerative changes and scoliosis of the thoracolumbar spine. Stalin Sanches MD on March 21, 2017 at 19:00 Board Certified Radiologist. This report was verified electronically.
[2017-03-21] MEDS ORDERED: PANTOPRAZOLE SODIUM 40 MG VIAL IV SCH (20:00)
[2017-03-21] MEDS ORDERED: ETHAMBUTOL HCL 400 MG TAB PO SCH (20:00)
[2017-03-21] MEDS ORDERED: ATOVAQUONE SUSP 750 MG/5 ML UDC PO SCH (20:00)
[2017-03-21] MEDS ORDERED: MICAFUNGIN INJ 100 MG in SODIUM CHLORIDE 0.9% INJ 100 ML IV SCH (20:00)
[2017-03-21] MEDS ORDERED: DOCUSATE SODIUM 50 MG/SENNA 8.6 MG TAB PO SCH (21:00)
[2017-03-21] MEDS ORDERED: DOLUTEGRAVIR SODIUM 50 MG TAB PO SCH (21:00)
[2017-03-21] MEDS ORDERED: RITONAVIR 100 MG TAB PO SCH (21:00)
[2017-03-21] MEDS ORDERED: PREZISTA 600 MG PO SCH (21:00)
[2017-03-21] MEDS ORDERED: HEPARIN SODIUM - SQ 10,000 UNITS/ML VIAL SQ SCH (21:00)
[2017-03-21] MEDS ORDERED: VANCOMYCIN INJ 600 MG in SODIUM CHLOR 0.9% 250 ML INJ 250 ML IV SCH (21:00)
[2017-03-21] MEDS: PIPERACIL-TAZO 3.375 GM PREMIX 50 ML IV SCH (22:30)
[2017-03-22] VITALS: BP 111/57; PULSE 60; RESP 19; TEMP 98; O2SAT 98
[2017-03-22 02:00] VITALS: PULSE 59
[2017-03-22 04:00] VITALS: BP 114/59; PULSE 58; PULSE 59; RESP 15; TEMP 98.3; O2SAT 96
[2017-03-22] MEDS ORDERED: CHLORHEXIDINE GLUCONATE 2 % 1 PACK (2 CLOTHS) TOP SCH (04:00)
[2017-03-22] MEDS: PIPERACIL-TAZO 3.375 GM PREMIX 50 ML IV SCH (04:51)
[2017-03-22 06:00] VITALS: PULSE 56
[2017-03-22 06:45] LABS: HEMO FLAGS AUTO DIFF; MEAN CELL VOLUME 82.1 FL (80.0-100.0); MEAN CORPUSCULAR HEMOGLOBIN 26.7 PG (27.0-34.0); MEAN CORPUSCULAR HGB CONC 32.5 % (32.0-36.0); PLATELET COUNT 164 TH/MM3 (150-450); RED BLOOD COUNT 3.54 MIL/MM3 (4.00-5.30); RED CELL DISTRIBUTION WIDTH 17.6 % (11.6-17.2); WHITE BLOOD COUNT 7.8 TH/MM3 (4.0-11.0)
[2017-03-22 06:59] LABS: MAGNESIUM 1.7 MG/DL (1.5-2.5)
[2017-03-22 07:08] LABS: POTASSIUM 2.9 MEQ/L (3.5-5.1)
[2017-03-22 07:13] LABS: BANDS 11 % (0-6); MYELOCYTES 1 % (0-0); NEUTROPHIL # MANUAL DIFF 6.9 TH/MM3 (1.8-7.7); PLATELET ESTIMATE SMEAR NORMAL (NORMAL); PLATELET MORPHOLOGY NORMAL (NORMAL); POLYS (SEG NEUTROPHILS) 77 % (16-70); SCAN/DIFF FINAL DIFF MANUAL; TOXIC GRANULATION 2+ (NORMAL); TOXIC VACUOLATION PRESENT (NONE SEEN); WBC DIFF SAMPLE 100
[2017-03-22 07:14] LABS: OVALOCYTES 1+ (NORMAL)
[2017-03-22 07:23] LABS: CALCIUM-PROTEIN CORRECTED 7.5 MG/DL (8.5-10.1)
--- NOTE | 2017-03-22 08:35 | HHI.CCPN ---
Subjective Remarks/Hospital Course Emaciated 41 y/o untreated AIDS patient with fever and bandemia. Watery diarrhea for over 3 days. No abdominal pain, cough, chills, dysuria. Cultures drawn, broad abx and fungal coverage started. Sepsis source workup begun. Prealbumin 4, indicative of protein-calorie malnutrition. Subjective: 03/20: Patient being examined, refusing examination. The patient is alert and oriented 3, GCS 15. Removing clothing IV tubing requesting to leave AMA. Extensive discussion with patient regarding care needed and treatment for presumed sepsis, electrolyte abnormalities, as well as GI abnormalities. The patient continues to refuse any type of treatment requesting to leave this a.m.. Pertinent documentation provided to patient. Objective Vital Signs Date Time Temp Pulse Resp B/P Pulse Ox O2 Delivery O2 Flow Rate FiO2 03/22/17 06:00 56 03/22/17 04:00 98.3 15 114/59 96 03/21/17 19:15 Room Air Intake and Output 03/21/17 03/21/17 03/22/17 08:00 16:00 00:00 Intake Total 805 ml Output Total 650 ml Balance 155 ml Result Diagram: 03/22/17 0537 03/22/17 0537 Other Results Microbiology Date/Time Procedure Status Source Growth 03/21/17 16:15 Influenza Types A,B Antigen (LAURIE) - Final Complete Nasal Aspirate NEGATIVE FOR FLU A AND B ANTIGEN.... Objective Remarks Gen: Severely malnourished, emaciated female. Alert and oriented 3 Head: Normal. Neck: Supple, airway patent. No pain to motion. Lungs: Clear, no wheezes or crackles. Comfortable respiratory pattern. Heart: NL S1S2, RRR. Neck veins flat. Back: Punctate skin breakdown midline over coccyx. Abdomen: Soft, nontender, no guarding or peritoneal irritation. BS active. No distention. Extremities: Thin, wasted. Well perfused. No edema. Brisk capillary refill. Neuro: Weak but moves 4 limbs to command. O X 3, good memory. LADI. Urinary Catheter: Yes Assessment to: Remove Vascular Central Line Catheter: No A/P Assessment and Plan Assessment: 1. AIDS (acquired immune deficiency syndrome) 2. Hypokalemia 3. Hypocalcemia 4. Thrush 5. Protein calorie malnutrition Dispo: Extensive discussion with patient and BOTTOM STOP ATTACHER at bedside. I discussed plan of treatment, provided the patient with the medical update, and reasons for hospitalization. All questions answered. The patient still refuses to comply and plans to leave the hospital AMA. Plan: 1. [id number] results 2. Broad abx coverage. 3. CD4 and viral load-pending results, restart antivirals- 4. Aggressive hydration. 5. Nutritional assessment. 6. Protonix. 7. Heparin bid sq. 8. Hypokalemia- potassium level 2.9 this a.m.. Plan to offer patient 50 mEq effervescent KCl P.O., if she will comply. Overall impression: Severely cachectic woman with largely untreated HIV now critically ill with febrile illness, bandemia, dehydration. Now refusing care, planning to leave AM, this a.m.. Physician Mi White MD Mar 22, 2017 08:35
[2017-03-22] MEDS ORDERED: POTASSIUM BICARBONATE 25 MEQ EFFERVESCENT TAB PO ONE (08:45)
[2017-03-22] MEDS ORDERED: NYSTATIN SUSP 500,000 U/5 ML CUP SWISH-SWAL SCH (09:00)
[2017-03-22] MEDS ORDERED: VIREAD 300 MG PO SCH (09:00)
[2017-03-22 10:23] LABS: C. DIFF EPI 027 PRESUMPTIVE NEGATIVE (NEGATIVE); C. DIFF TOXIN PCR NEGATIVE (NEGATIVE)
--- NOTE | 2017-03-23 06:05 | HHI.DS ---
Discharge Summary Admission Date Mar 21, 2017 at 17:54 Admitting Diagnosis febrile illness, AIDS, severe hypokalemia, hypocalcemia Brief History Emaciated 41 y/o untreated AIDS patient with fever and bandemia. Watery diarrhea for over 3 days. No abdominal pain, cough, chills, dysuria. Cultures drawn, broad abx and fungal coverage started. Sepsis source workup begun. Prealbumin 4, indicative of protein-calorie malnutrition. CBC/BMP: 03/22/17 0537 03/22/17 0537 Significant Findings Laboratory Tests Test 03/21/17 03/21/17 03/22/17 16:20 16:30 05:37 Red Blood Count 3.37 MIL/MM3 3.54 MIL/MM3 (4.00-5.30) (4.00-5.30) Hemoglobin 9.1 GM/DL 9.4 GM/DL (11.6-15.3) (11.6-15.3) Hematocrit 27.9 % 29.0 % (35.0-46.0) (35.0-46.0) Red Cell Distribution Width 18.0 % 17.6 % (11.6-17.2) (11.6-17.2) Neutrophils % (Manual) 84 % (16-70) 77 % (16-70) Lymphocytes % 6 % (9-44) 5 % (9-44) Neutrophils # (Manual) 8.4 TH/MM3 (1.8-7.7) Prothrombin Time 13.0 SEC (9.8-11.6) Activated Partial 43.6 SEC Thromboplast Time (24.3-30.1) Potassium Level 1.8 MEQ/L 2.9 MEQ/L (3.5-5.1) (3.5-5.1) Creatinine 1.09 MG/DL 1.01 MG/DL (0.50-1.00) (0.50-1.00) Estimat Glomerular Filtration 67 ML/MIN (>89) 73 ML/MIN (>89) Rate Random Glucose 110 MG/DL 124 MG/DL (74-106) (74-106) Lactic Acid Level 3.5 mmol/L (0.4-2.0) Calcium Level 7.4 MG/DL 6.9 MG/DL (8.5-10.1) (8.5-10.1) Protein Corrected Calcium 7.4 MG/DL 7.5 MG/DL (8.5-10.1) (8.5-10.1) Aspartate Amino Transf 12 U/L (15-37) (AST/SGOT) Alkaline Phosphatase 167 U/L (45-117) Albumin 1.3 GM/DL (3.4-5.0) Prealbumin 4 MG/DL (20-40) Lipase 48 U/L (73-393) Urine Protein 30 mg/dL (NEG-TRACE) Urine Bacteria RARE /hpf (NONE) Mean Corpuscular Hemoglobin 26.7 PG (27.0-34.0) Band Neutrophils % 11 % (0-6) Myelocytes 1 % (0-0) Toxic Granulation 2+ (NORMAL) Toxic Vacuolation PRESENT (NONE SEEN) Ovalocytes 1+ (NORMAL) Chloride Level 113 MEQ/L (98-107) Carbon Dioxide Level 19.0 MEQ/L (21.0-32.0) Total Protein 5.9 GM/DL (6.4-8.2) Hospital Course Emaciated 41 y/o untreated AIDS patient with fever and bandemia. Watery diarrhea for over 3 days. No abdominal pain, cough, chills, dysuria. Cultures drawn, broad abx and fungal coverage started. Sepsis source workup begun. Prealbumin 4, indicative of protein-calorie malnutrition. Subjective: 03/20: Patient being examined, refusing examination. The patient is alert and oriented 3, GCS 15. Removing clothing IV tubing requesting to leave AMA. Extensive discussion with patient regarding care needed and treatment for presumed sepsis, electrolyte abnormalities, as well as GI abnormalities. The patient continues to refuse any type of treatment requesting to leave this a.m.. Pertinent documentation provided to patient. Pt Condition on Discharge: Guarded Discharge Instructions Additional Information Emaciated 41 y/o untreated AIDS patient with fever and bandemia. Watery diarrhea for over 3 days. No abdominal pain, cough, chills, dysuria. Cultures drawn, broad abx and fungal coverage started. Sepsis source workup begun. Prealbumin 4, indicative of protein-calorie malnutrition. Subjective: 03/22: Patient being examined, refusing examination. The patient is alert and oriented 3, GCS 15. Removing clothing IV tubing requesting to leave AMA. Extensive discussion with patient regarding care needed and treatment for presumed sepsis, electrolyte abnormalities, as well as GI abnormalities. The patient continues to refuse any type of treatment requesting to leave this a.m.. Pertinent documentation provided to patient. 03/22: Patient left Mi Kilgore MD Mar 23, 2017 06:05
--- NOTE | 2017-03-23 08:36 | EKG ---
Date Performed: 03/21/2017 Time Performed: 16:17:16 PTAGE: 41 years EKG: Sinus rhythm LEFT VENTRICULAR HYPERTROPHY AND ST-T CHANGE ABNORMAL ECG PREVIOUS TRACING : 02/22/2017 20.46 DOCTOR: Nadine Ward Interpretating Date/Time 03/23/2017 08:34:37
[2017-03-23] MEDS ORDERED: PHARMACY ORDERED LAB ONE (20:45)
[2017-03-23 23:50] LABS: CD 19 PERCENT 1 % (6-29); CD3 ABSOLUTE 130 (840-3060); CD4/CD8 RATIO 0.1 (0.86-5.00); CD8 ABSOLUTE 128 (180-1170); LYMPHOCYTES, ABSOLUTE 149 (850-3900)
== END 2017-03-22 09:05 | disposition left against medical advice (07) | DRG 974 ==
LOC: NEPE 15:44 → NEDA 17:54 → HIME 20:27
PROVIDERS: ADMIT Surgery Surgical Critical Care; ATTEND Surgery Surgical Critical Care
DX: A41.9 Sepsis, unspecified organism (principal); E43 Unspecified severe protein-calorie malnutrition; B20 Human immunodeficiency virus [HIV] disease; B37.0 Candidal stomatitis; E83.51 Hypocalcemia; J44.9 Chronic obstructive pulmonary disease, unspecified; E86.0 Dehydration; R19.7 Diarrhea, unspecified; R29.6 Repeated falls; F41.9 Anxiety disorder, unspecified; F32.9 Major depressive disorder, single episode, unspecified; K21.9 Gastro-esophageal reflux disease without esophagitis; I10 Essential (primary) hypertension; R35.0 Frequency of micturition; G62.9 Polyneuropathy, unspecified; L30.9 Dermatitis, unspecified; G43.909 Migraine, unspecified, not intractable, without status migrainosus; F17.210 Nicotine dependence, cigarettes, uncomplicated; E87.6 Hypokalemia; L98.8 Other specified disorders of the skin and subcutaneous tissue
CPT/HCPCS: 71010; 73060; 73590; 74176; 80048; 80053; 81001; 83605; 83690; 83735; 84100; 84134; 84155; 85007; 85027; 85610; 85730; 86355; 86357; 86359; 86360; 87040; 87086; 87205; 87493; 87506; 87641; 87804; 93005; C9113; J0610; J1644; J2248; J2405; J2543; J3370; J3480; J7030; J7050

== ENCOUNTER 2017-04-19 12:33 | Inpatient (IN) | payer OTHER ==
[~2017-04-19] VITALS: Ht 160 cm; Wt 27.2 kg
[2017-04-19] VITALS (21 sets, daily range): BP systolic 88–148; BP diastolic 56–77; PULSE 48–79; RESP 15–30; TEMP 86.2–98.3; O2SAT 82–100
[2017-04-19] MEDS ORDERED: NITROGLYCERIN 0.4 MG SL 25 TABS/BTL SL STA (12:38)
[2017-04-19] MEDS ORDERED: SODIUM CHLOR 0.9% 1000 ML INJ 1,000 ML IV ONE (12:38)
[2017-04-19] MEDS ORDERED: ASPIRIN 81 MG CHEW TAB PO STA (12:38)
--- NOTE | 2017-04-19 12:49 | PD ---
HPI Chief Complaint: Cardiac Complaint Time Seen by Provider: 12:38 Travel History International Travel<30 days: No Contact w/Intl Traveler<30days: No Traveled to known affect area: No History of Present Illness HPI 41-year-old -Serbian female patient with history of full-blown HIV infection would previous history of opportunistic infections, COPD, presents to the ER today brought in by EMS for 4 days history of left-sided chest pain. She has had coughing, feeling weak, diarrhea going on for several days. She is not able to take care of herself at home. EMS got an EKG and noted ST wave changes, called a cardiac alert. Modifying Factors: None Associated Signs & Symptoms: Coughing, feeling weak, diarrhea, chest pains, EKG changes, cardiac alert, ST elevation CT Risk Factors: HIV PFSH Past Medical History Arthritis: No Asthma: Yes Autoimmune Disease: Yes Blood Disorders: Yes (ANEMIA) Anxiety: Yes Depression: Yes Heart Rhythm Problems: No Cancer: No Cardiovascular Problems: No High Cholesterol: No Chemotherapy: No Chest Pain: No Congestive Heart Failure: No COPD: Yes Cerebrovascular Accident: No Diabetes: No Diminished Hearing: No Endocrine: No Gastrointestinal Disorders: Yes GERD: Yes Glaucoma: No Genitourinary: Yes (urinary frequency) Headaches: Yes (daily) Hepatitis: No Hiatal Hernia: No Hypertension: Yes Immune Disorder: Yes (hiv/aids chronic anemia) Kidney Stones: No Musculoskeletal: Yes Neurologic: Yes (neuropathy) Psychiatric: Yes Reproductive: No Respiratory: Yes Integumentary: Yes (ECZEMA) Immunizations Current: Yes Migraines: Yes Myocardial Infarction: No Radiation Therapy: No Renal Failure: No Seizures: No Sickle Cell Disease: No Sleep Apnea: No Thyroid Disease: No Ulcer: No : 6 Para: 2 Miscarriage: 4 : 4 Ectopic : No Ovarian Cysts: No Tubal Ligation: No Past Surgical History Abdominal Surgery: Yes (polyps removed, endoscopy, esophageal ablation) AICD: No Appendectomy: No Arteriovenous Shunt: No Cardiac Surgery: No Cholecystectomy: No Ear Surgery: No Endocrine Surgery: No Eye Surgery: No Genitourinary Surgery: No Gynecologic Surgery: No Hysterectomy: No Insulin Pump: No Joint Replacement: No Neurologic Surgery: No Oral Surgery: No Pacemaker: No Thoracic Surgery: No Other Surgery: Yes (polyp removal, endoscopy, esoph. ablation) Social History Alcohol Use: No Tobacco Use: Yes (1 CIGARETTE A DAY) Substance Use: No Allergies-Medications (Allergen,Severity, Reaction): Coded Allergies: Cipro (Verified Allergy, Severe, HIVES, 04/19/17) Contrast Media (Verified Allergy, Severe, Hives, 04/19/17) Iodide Tincture (Verified Allergy, Severe, HIVES, 04/19/17) Lisinopril (Unverified Allergy, Severe, Swelling, 04/19/17) Wellbutrin (Verified Allergy, Severe, HIVES, 04/19/17) *MDRO Multi-Drug Resistant Organism (Verified Adverse Reaction, Unknown, Cleared, 04/19/17) MRSA (leg wound) - 2008 Cleared - MRSA PCR (nares) NEGATIVE on 11/04/16 & 03/21/17 Reported Meds & Prescriptions Reported Meds & Active Scripts Active Reported [Viread] 300 Mg PO DAILY Ethambutol (Ethambutol HCl) 400 Mg Tab 400 Mg PO DAILY [Prezista] 600 Mg PO BID Norvir (Ritonavir) 100 Mg Cap 100 Mg PO BID Mepron Liq (Atovaquone) 750 Mg/5 Ml Susp 1,500 Mg PO DAILY Take with food. Tivicay (Dolutegravir Sodium) 50 Mg Tab 50 Mg PO BID Proair Hfa 8.5 GM Inh (Albuterol Sulfate) 90 Mcg/Act Aer 2 Puff INH Q6H PRN 108 mcg/actuation Albuterol Neb (Albuterol Sulfate) 1.25 Mg/3 Ml Neb 1.25 Mg NEB TID NEB PRN Review of Systems ROS Limitations: Poor Historian Except as stated in HPI: all other systems reviewed are Neg Physical Exam Narrative GENERAL: Cachectic middle age -Serbian female patient currently in moderate distress. Awake and oriented 3. SKIN: Focused skin assessment warm/dry. HEAD: Atraumatic. Normocephalic. EYES: Pupils equal and round. No scleral icterus. No injection or drainage. ENT: No nasal bleeding or discharge. Mucous membranes pink and moist. NECK: Trachea midline. No JVD. CARDIOVASCULAR: Regular rate and rhythm. No murmur appreciated. RESPIRATORY: Mild accessory muscle use. Coarse breath sounds throughout. Breath sounds equal bilaterally. GASTROINTESTINAL: Abdomen soft, cachectic, non-tender, nondistended. Hepatic and splenic margins not palpable. MUSCULOSKELETAL: No obvious deformities. No clubbing. No cyanosis. No edema. NEUROLOGICAL: Awake and alert. No obvious cranial nerve deficits. Motor grossly within normal limits. Normal speech. PSYCHIATRIC: Appropriate mood and affect; insight and judgment normal. Data Data Last Documented VS Vital Signs Date Time Temp Pulse Resp B/P Pulse Ox O2 Delivery O2 Flow Rate FiO2 04/19/17 12:43 98 Room Air 04/19/17 12:43 97.5 79 95/60 04/19/17 12:43 2.0 04/19/17 12:38 21 Orders Troponin I (04/19/17 12:38) Ckmb (Isoenzyme) Profile (04/19/17 12:38) Complete Blood Count With Diff (04/19/17 12:38) I-Stat Profile (04/19/17 12:38) I-Stat Creatinine (04/19/17 12:38) Calcium (04/19/17 12:38) Magnesium (Mg) (04/19/17 12:38) Prothrombin Time / Inr (Pt) (04/19/17 12:38) Act Partial Throm Time (Ptt) (04/19/17 12:38) B-Type Natriuretic Peptide (04/19/17 12:38) Chest, Single Ap (04/19/17 12:38) Electrocardiogram (04/19/17 12:38) Oxygen Administration (04/19/17 12:38) Iv Access Insert/Monitor (04/19/17 12:38) Oximetry (04/19/17 12:38) Sodium Chlor 0.9% 1000 Ml Inj (Ns 1000 M (04/19/17 12:38) Sodium Chloride 0.9% Flush (Ns Flush) (04/19/17 12:45) Aspirin Chew (Aspirin Chew) (04/19/17 12:38) Nitroglycerin Sl (Nitrostat Sl) (04/19/17 12:38) Admit Order (Ed Use Only) (04/19/17 12:41) Labs Laboratory Tests Test 04/19/17 12:40 White Blood Count 5.6 TH/MM3 Red Blood Count 2.10 MIL/MM3 Hemoglobin 5.9 GM/DL Bedside Hemoglobin 6.5 G/DL Hematocrit 18.4 % Bedside Hematocrit 19.0 % Mean Corpuscular Volume 87.4 FL Mean Corpuscular Hemoglobin 28.2 PG Mean Corpuscular Hemoglobin 32.3 % Concent Red Cell Distribution Width 19.8 % Platelet Count 135 TH/MM3 Mean Platelet Volume 10.2 FL Neutrophils (%) (Auto) % Lymphocytes (%) (Auto) % Monocytes (%) (Auto) % Eosinophils (%) (Auto) % Basophils (%) (Auto) % Neutrophils # (Auto) TH/MM3 Lymphocytes # (Auto) TH/MM3 Monocytes # (Auto) TH/MM3 Eosinophils # (Auto) TH/MM3 Basophils # (Auto) TH/MM3 CBC Comment AUTO DIFF Differential Total Cells 100 Counted Neutrophils % (Manual) 75 % Band Neutrophils % 15 % Lymphocytes % 5 % Monocytes % 1 % Neutrophils # (Manual) 5.3 TH/MM3 Metamyelocytes 2 % Myelocytes 2 % Nucleated Red Blood Cells 1 /100 WBC Differential Comment FINAL DIFF MANUAL Toxic Granulation 1+ Toxic Vacuolation PRESENT Platelet Estimate LOW Platelet Morphology Comment ENLARGED Ovalocytes 1+ Acanthocytes 1+ Prothrombin Time 14.9 SEC Prothromb Time International 1.3 RATIO Ratio Activated Partial 46.0 SEC Thromboplast Time Bedside Sodium 137 MMOL/L Bedside Potassium 2.4 MMOL/L Bedside Chloride 103 MMOL/L Bedside Blood Urea Nitrogen 17 MG/DL Bedside Creatinine 1.1 MG/DL Bedside Glucose 61 MG/DL Calcium Level 6.9 MG/DL Magnesium Level 1.5 MG/DL Total Creatine Kinase 22 U/L Troponin I LESS THAN 0.02 NG/ML B-Type Natriuretic Peptide 207 PG/ML [facility] Medical Decision Making Medical Screen Exam Complete: Yes Emergency Medical Condition: Yes Medical Record Reviewed: Yes Interpretation(s) EKG shows ST elevation in aVR and ST depressions in the inferior leads and V3 through V6. Concerning for posterior STEMI CT. Differential Diagnosis STEMI versus pneumonia versus costochondritis versus non-STEMI Narrative Course Stimulator was called in the ER after discussion with Dr. Colon and after sending EKG new and old to Dr. Colon. Lab work shows potassium at 2.4. Case was discussed again with him and he at this point wants us to hold transfer ostomy up to the catheter lab until he sees the patient stating that she may not be a good candidate for immediate catheterization. Case had been admitted to his service due to STEMI protocol. However, after he evaluated the case and evaluated her, he states that with her electrolyte abnormalities and her full-blown HIV status, the fact that she is cachectic, he does not feel that she would make a good catheterization candidate due to possibility of harm. He states he would defer the catheterization. However, he has suggested that we do a CTA of the aorta for further evaluation to rule out other acute aortic, or chest issues. At this point, lab work also shows significant anemia and IV potassium and PRBCs has been ordered for this patient. Case was then discussed with Dr. Schulte who knows the patient, for admission to critical care unit. Aggregate critical care time was 30 minutes. Time to perform other separately billable procedures was not included in the critical care time. My time did not include minutes spent treating any other patients simultaneously or on activities that did not directly contribute to the patient's treatment. The services I provided to this patient were to treat and/or prevent clinically significant deterioration that could result in: Cardiopulmonary arrest, dysrhythmia, I provided critical care services requiring my management, as noted below: Chart data review, documentation time, medication orders and management, vital sign assessments/reviewing monitor data, ordering and reviewing lab tests, ordering and interpreting/reviewing x-rays and diagnostic studies, care of the patient and discussion of the patient with the admitting physicians. Procedures EKG Prior to Arrival: Yes Diagnosis Primary Impression: STEMI (ST elevation myocardial infarction) Additional Impressions: Anemia Electrolyte abnormality Hypokalemia Hypocalcemia Encounter for blood transfusion Admitting Information Admitting Physician Requests: Admit Earnest Olsen MD Apr 19, 2017 12:49
[2017-04-19] MEDS: SODIUM CHLORIDE 0.9% FLUSH 10 ML FLUSH IVF PRN ×2 (12:50→14:06)
[2017-04-19 13:08] LABS: I-STAT SODIUM 137 MMOL/L (138-146)
[2017-04-19 13:09] LABS: I-STAT POTASSIUM 2.4 MMOL/L (3.5-4.9)
[2017-04-19 13:11] LABS: MEAN CELL VOLUME 87.4 FL (80.0-100.0); MEAN CORPUSCULAR HEMOGLOBIN 28.2 PG (27.0-34.0); MEAN CORPUSCULAR HGB CONC 32.3 % (32.0-36.0); PLATELET COUNT 135 TH/MM3 (150-450); RED CELL DISTRIBUTION WIDTH 19.8 % (11.6-17.2); WHITE BLOOD COUNT 5.6 TH/MM3 (4.0-11.0)
[2017-04-19 13:14] LABS: HEMO FLAGS AUTO DIFF
[2017-04-19] MEDS ORDERED: HYDROCORTISONE SOD SUCCINATE 250 MG VIAL IV ONE (13:15)
[2017-04-19 13:18] LABS: HEMATOCRIT 18.4 % (35.0-46.0)
[2017-04-19 13:21] LABS: INTERNATIONAL NORMALIZED RATIO 1.3 RATIO; PROTHROMBIN TIME - PATIENT 14.9 SEC (9.8-11.6)
[2017-04-19 13:40] LABS: CREATINE KINASE 22 U/L (26-192); MAGNESIUM 1.5 MG/DL (1.5-2.5)
--- NOTE | 2017-04-19 13:40 | RADRPT ---
EXAM DATE/TIME: 04/19/2017 12:45 [facility] COMPARISON: CHEST SINGLE AP, March 21, 2017, 16:39. INDICATIONS : STEMI alert. MEDICAL HISTORY : HIV Hypertension MRSA. SURGICAL HISTORY : Esophageal ablation. Polyps removed. ENCOUNTER: Initial ACUITY: 1 day PAIN SCORE: 2/10 LOCATION: Bilateral chest FINDINGS: Cardiac silhouette is prominent, negative failure or pneumothorax. The portion of the bony skeleton v isualized is unremarkable. CONCLUSION: Prominent cardiac silhouette otherwise negative. Adams aCrr MD FACR on April 19, 2017 at 13:37 Board Certified Radiologist. This report was verified electronically.
[2017-04-19 13:45] LABS: ACANTHOCYTES 1+ (NORMAL); BANDS 15 % (0-6); CORRECTED NUCLEATED RBC 1 /100 WBC (0-0); METAMYELOCYTES 2 % (0-1); MYELOCYTES 2 % (0-0); NEUTROPHIL # MANUAL DIFF 5.3 TH/MM3 (1.8-7.7); OVALOCYTES 1+ (NORMAL); POLYS (SEG NEUTROPHILS) 75 % (16-70); WBC DIFF SAMPLE 100
[2017-04-19] MEDS ORDERED: NS + KCL 40 MEQ INJ 1,000 ML IV SCH (13:45)
[2017-04-19] MEDS ORDERED: SODIUM CHLOR 0.9% 250 ML INJ 250 ML IV ONE (13:45)
[2017-04-19 13:46] LABS: PLATELET ESTIMATE SMEAR LOW (NORMAL); PLATELET MORPHOLOGY ENLARGED (NORMAL); SCAN/DIFF FINAL DIFF MANUAL; TOXIC GRANULATION 1+ (NORMAL); TOXIC VACUOLATION PRESENT (NONE SEEN)
[2017-04-19] MEDS ORDERED: NS + KCL 20 MEQ INJ 1,000 ML IV SCH (15:40)
[2017-04-19] MEDS ORDERED: BISACODYL 10 MG SUPP RECTAL PRN (15:45)
[2017-04-19] MEDS ORDERED: ACETAMINOPHEN 325 MG TAB PO PRN (15:45)
[2017-04-19] MEDS ORDERED: POTASSIUM CHLORIDE 25 MEQ EFFERVESCENT TAB PO PRN (15:45)
[2017-04-19] MEDS ORDERED: SODIUM CHLORIDE 0.9% FLUSH 10 ML FLUSH IV FLUSH PRN (15:45)
[2017-04-19] MEDS ORDERED: POTASSIUM PHOSPHATE INJ 30 MMOL in SODIUM CHLOR 0.9% 250 ML INJ 250 ML IV PRN (15:45)
[2017-04-19] MEDS ORDERED: MAGNESIUM SULFATE INJ 4 GM in SODIUM CHLORIDE 0.9% INJ 92 ML IV PRN (15:45)
[2017-04-19] MEDS ORDERED: POTASSIUM PHOSPHATE MONOBASIC 500 MG TAB PO/TUBE PRN (15:45)
[2017-04-19] MEDS ORDERED: LACTULOSE SYRUP 20 GM/30 ML CUP PO PRN (15:45)
[2017-04-19] MEDS ORDERED: POTASSIUM CHLOR 40 MEQ PREMIX 100 ML IV PRN ×2 (15:45)
[2017-04-19] MEDS ORDERED: POTASSIUM PHOSPHATE MONOBASIC 500 MG TAB PO PRN (15:45)
[2017-04-19] MEDS ORDERED: CHLORHEXIDINE GLUCONATE 2 % 1 PACK (2 CLOTHS) TOP PRN (15:45)
[2017-04-19] MEDS ORDERED: MISCELLANEOUS NURSING INFORMATION XX SCH (15:45)
[2017-04-19] MEDS ORDERED: SODIUM PHOSPHATE INJ 30 MMOL in SODIUM CHLOR 0.9% 250 ML INJ 240 ML IV PRN (15:45)
[2017-04-19] MEDS ORDERED: MAGNESIUM HYDROXIDE SUSP 30 ML CUP PO PRN (15:45)
[2017-04-19] MEDS ORDERED: SENNOSIDES 8.6 MG TAB PO PRN (15:45)
[2017-04-19] MEDS ORDERED: POTASSIUM CHLOR 20 MEQ PREMIX 100 ML IV PRN ×2 (15:45)
[2017-04-19] MEDS ORDERED: RESP: ALBUTEROL 2.5 MG/IPRATROPIUM 0.5 MG NEB (PRN) INH (15:45)
[2017-04-19] MEDS ORDERED: MAGNESIUM OXIDE 400 MG TAB PO PRN (15:45)
[2017-04-19] MEDS ORDERED: MAGNESIUM SULFATE INJ 2 GM in SODIUM CHLORIDE 0.9% INJ 96 ML IV PRN (15:45)
--- NOTE | 2017-04-19 16:18 | HHI.HP ---
HPI Service Critical Care Medicine Primary Care Physician Unknown Admission Diagnosis STEMI alert Diagnosis: Travel History International Travel<30 Days: No Contact w/Intl Traveler <30 Da: No Traveled to Known Affected Are: No History of Present Illness This is a well-known 41-year-old -Guyanese female patient with history of full-blown HIV infection would previous history of opportunistic infections, COPD, presents to the ER today brought in by EMS for 4 days history of left- sided chest pain. The patient's previous admission was noted January 2017, February 2017 at which point she left both admissions AMA. Today the patient presents with coughing, feeling weak, and copious diarrhea going on for several days. She is not able to take care of herself at home. The patient stated that she has not been on her anti-retroviral drugs for many months. EMS got an EKG and noted ST wave changes, called a cardiac alert. Dr. Colon was consulted, cardiology, it was felt that the patient was not a candidate for cardiac catheterization at this time. CT aorta, CT abdomen and pelvis are pending. Laboratories findings were noted with electrolyte abnormalities as well as a severe anemia, bandemia. Critical care medicine was consulted. History PFSH Past Medical History Arthritis: No Asthma: Yes Autoimmune Disease: Yes Blood Disorders: Yes (ANEMIA) Anxiety: Yes Depression: Yes Heart Rhythm Problems: No Cancer: No Cardiovascular Problems: No High Cholesterol: No Chemotherapy: No Chest Pain: No Congestive Heart Failure: No COPD: Yes Cerebrovascular Accident: No Diabetes: No Diminished Hearing: No Endocrine: No Gastrointestinal Disorders: Yes GERD: Yes Glaucoma: No Genitourinary: Yes (urinary frequency) Headaches: Yes (daily) Hepatitis: No Hiatal Hernia: No Hypertension: Yes Immune Disorder: Yes (hiv/aids chronic anemia) Kidney Stones: No Musculoskeletal: Yes Neurologic: Yes (neuropathy) Psychiatric: Yes Reproductive: No Respiratory: Yes Integumentary: Yes (ECZEMA) Immunizations Current: Yes Migraines: Yes Myocardial Infarction: No Radiation Therapy: No Renal Failure: No Seizures: No Sickle Cell Disease: No Sleep Apnea: No Thyroid Disease: No Ulcer: No : 6 Para: 2 Miscarriage: 4 : 4 Ectopic : No Ovarian Cysts: No Tubal Ligation: No Past Surgical History Abdominal Surgery: Yes (polyps removed, endoscopy, esophageal ablation) AICD: No Appendectomy: No Arteriovenous Shunt: No Cardiac Surgery: No Cholecystectomy: No Ear Surgery: No Endocrine Surgery: No Eye Surgery: No Genitourinary Surgery: No Gynecologic Surgery: No Hysterectomy: No Insulin Pump: No Joint Replacement: No Neurologic Surgery: No Oral Surgery: No Pacemaker: No Thoracic Surgery: No Other Surgery: Yes (polyp removal, endoscopy, esoph. ablation) Social History Alcohol Use: No Tobacco Use: Yes (1 CIGARETTE A DAY) Substance Use: No Allergies-Medications Allergies-Medications (Allergen,Severity, Reaction): Coded Allergies: Cipro (Verified Allergy, Severe, HIVES, 04/19/17) Contrast Media (Verified Allergy, Severe, Hives, 04/19/17) Iodide Tincture (Verified Allergy, Severe, HIVES, 04/19/17) Lisinopril (Unverified Allergy, Severe, Swelling, 04/19/17) Wellbutrin (Verified Allergy, Severe, HIVES, 04/19/17) *MDRO Multi-Drug Resistant Organism (Verified Adverse Reaction, Unknown, Cleared, 04/19/17) MRSA (leg wound) - 2008 Cleared - MRSA PCR (nares) NEGATIVE on 11/04/16 & 03/21/17 Reported Meds & Prescriptions Reported Meds & Active Scripts Active Reported [Viread] 300 Mg PO DAILY Ethambutol (Ethambutol HCl) 400 Mg Tab 400 Mg PO DAILY [Prezista] 600 Mg PO BID Norvir (Ritonavir) 100 Mg Cap 100 Mg PO BID Mepron Liq (Atovaquone) 750 Mg/5 Ml Susp 1,500 Mg PO DAILY Take with food. Tivicay (Dolutegravir Sodium) 50 Mg Tab 50 Mg PO BID Proair Hfa 8.5 GM Inh (Albuterol Sulfate) 90 Mcg/Act Aer 2 Puff INH Q6H PRN 108 mcg/actuation Albuterol Neb (Albuterol Sulfate) 1.25 Mg/3 Ml Neb 1.25 Mg NEB TID NEB PRN ROS Review of Systems ROS Limitations: Poor Historian Except as stated in HPI: all other systems reviewed are Neg Past Family Social History Allergies: Coded Allergies: Cipro (Verified Allergy, Severe, HIVES, 04/19/17) Contrast Media (Verified Allergy, Severe, Hives, 04/19/17) Iodide Tincture (Verified Allergy, Severe, HIVES, 04/19/17) Lisinopril (Unverified Allergy, Severe, Swelling, 04/19/17) Wellbutrin (Verified Allergy, Severe, HIVES, 04/19/17) *MDRO Multi-Drug Resistant Organism (Verified Adverse Reaction, Unknown, Cleared, 04/19/17) MRSA (leg wound) - 2008 Cleared - MRSA PCR (nares) NEGATIVE on 11/04/16 & 03/21/17 Reported Medications see MAR Active Ordered Medications see MAR Family History Unable to obtain secondary to patient being a poor historian, and clinical condition. Social History Patient smoker a pack every 3 days greater than 20 years, denies ETOH, and illicit drug use. Physical Exam Vital Signs Vital Signs Date Time Temp Pulse Resp B/P Pulse Ox O2 Delivery O2 Flow Rate FiO2 04/19/17 13:50 70 22 106/69 98 Nasal Cannula 2.0 04/19/17 13:11 74 15 100/63 100 Nasal Cannula 2.0 04/19/17 12:43 98 Room Air 04/19/17 12:43 97.5 79 95/60 97 Room Air 04/19/17 12:43 Nasal Cannula 2.0 04/19/17 12:38 98 21 Physical Exam GENERAL: Thin, emaciated honestly ill-appearing female, slowly responsive to questions SKIN: Warm and dry. Poor skin turgor noted HEAD: Atraumatic. Normocephalic. EYES: Pupils equal and round. No scleral icterus. No injection or drainage. ENT: No nasal bleeding or discharge. Mucous membranes pink and dry. NECK: Trachea midline. No JVD. CARDIOVASCULAR: Normal rate, regular rhythm. RESPIRATORY: No accessory muscle use. Clear to auscultation. Breath sounds equal bilaterally. GASTROINTESTINAL: Abdomen soft, non-tender, nondistended. No guarding. Fecal containment device noted MUSCULOSKELETAL: Extremities without clubbing, cyanosis, or edema. No obvious deformities. NEUROLOGICAL: Awake and alert. RASS 0. No gross focal/sensory deficits. Follows commands in all 4 extremities. Laboratory Laboratory Tests Test 04/19/17 12:40 White Blood Count 5.6 Red Blood Count 2.10 Hemoglobin 5.9 Bedside Hemoglobin 6.5 Hematocrit 18.4 Bedside Hematocrit 19.0 Mean Corpuscular Volume 87.4 Mean Corpuscular Hemoglobin 28.2 Mean Corpuscular Hemoglobin 32.3 Concent Red Cell Distribution Width 19.8 Platelet Count 135 Mean Platelet Volume 10.2 Neutrophils (%) (Auto) Lymphocytes (%) (Auto) Monocytes (%) (Auto) Eosinophils (%) (Auto) Basophils (%) (Auto) Neutrophils # (Auto) Lymphocytes # (Auto) Monocytes # (Auto) Eosinophils # (Auto) Basophils # (Auto) CBC Comment AUTO DIFF Differential Total Cells 100 Counted Neutrophils % (Manual) 75 Band Neutrophils % 15 Lymphocytes % 5 Monocytes % 1 Neutrophils # (Manual) 5.3 Metamyelocytes 2 Myelocytes 2 Nucleated Red Blood Cells 1 Differential Comment FINAL DIFF MANUAL Toxic Granulation 1+ Toxic Vacuolation PRESENT Platelet Estimate LOW Platelet Morphology Comment ENLARGED Ovalocytes 1+ Acanthocytes 1+ Prothrombin Time 14.9 Prothromb Time International 1.3 Ratio Activated Partial 46.0 Thromboplast Time Bedside Sodium 137 Bedside Potassium 2.4 Bedside Chloride 103 Bedside Blood Urea Nitrogen 17 Bedside Creatinine 1.1 Bedside Glucose 61 Calcium Level 6.9 Magnesium Level 1.5 Total Creatine Kinase 22 Troponin I LESS THAN 0.02 B-Type Natriuretic Peptide 207 Blood Type B POSITIVE Antibody Screen NEGATIVE Crossmatch Leukocyte-Reduced Red Blood Cells Blood Bank Comment Result Diagram: 04/19/17 1240 Septic Shock Reassessment Heart: Regular rate and rhythm Lungs: Clear Skin: Dry Peripheral Pulses: Bounding Right Radial Bounding Left Radial Bounding Right Dorsalis Pedis Bounding Left Dorsalis Pedis Bounding Right Posterior Tibial Bounding Left Posterior Tibial Assessment and Plan Assessment and Plan Assessment Chest pain Productive cough End Stage AIDS Anemia Hypocalcemia Hypokalemia Severe protein calorie malnutrition Hepatitis C Severe dehydration Diarrhea COPD Plan Plan by systems: Neurologic: -Avoid all sedative type medications -Maintain sleep hygiene -Tylenol 650 mg every 6 hours for pain Respiratory: -Bronchodilators every 4 hours when necessary -When clinically indicated discussed smoking cessation with patient -Aggressive pulmonary toileting incentive spirometry Cardiovascular: -Cardiology following Dr. Colon -Follow-up troponin levels -BNP elevated 207 -Follow-up CT aorta -Telemetry Renal: -Donaldson catheter -- Strict I/Os FEN/GI: -D5 normal saline with 20 mEq KCl at 100 cc/hour -Replete electrolytes per ICU protocol -2 g calcium gluconate IV now -Obtain mag and phosphate levels-replete per protocol -Fecal containment device -Obtain C. difficile antigen -Nutritional consult -Obtain albumin level Heme/ID: -Transfuse 2 units packed red blood cells -Repeat CBC 1 hour posttransfusion -Panculture- F/U results -Obtain PPD -Resume anti-retroviral medication as soon as patient is able to take by mouth medications -Begin empiric antibiotics post obtaining cultures- Vanc and Zosyn Endocrine: Electrolyte replacement per ICU protocol -- SSI Prophylaxis: GI Prophylaxis Protonix DVT Prophylaxis -- SCDs Heparin SQ BID Lines: Peripheral IVs 2. Central line if indicated Dispo: This patient remains critically ill with one or more organ systems which are or may become a threat to life. I have spent in excess of 30 minutes discontinuously in the care and management of this patient. This time is exclusive of procedures, and includes, but is not limited to, evaluation of the patient, review of the medical record, discussions with family, consultants, nursing staff, or respiratory therapy, and documentation in the medical record. Code Status Full Discussed Condition With Discussed with ED physician Dr. Brown, and ED RN at bedside .Palliative medicine consulted to discuss goals of care with patient. Mi Schulte MD Apr 19, 2017 16:18
[2017-04-19] MEDS ORDERED: diphenhydrAMINE HCL 50 MG/ML VIAL IM ONE (16:30)
[2017-04-19] MEDS ORDERED: FAMOTIDINE 20 MG/2 ML VIAL IV PUSH ONE (16:30)
[2017-04-19] MEDS ORDERED: HEPARIN SODIUM - SQ 10,000 UNITS/ML VIAL SQ SCH (17:00)
[2017-04-19] MEDS ORDERED: POTASSIUM CHLORIDE INJ 30 MEQ in DEXT 5%-NACL 0.9% 1000 ML INJ 1,000 ML IV SCH (17:00)
[2017-04-19] MEDS ORDERED: CALCIUM GLUCONATE INJ 2 GM in DEXTROSE 5% IN WATER 100ML INJ 100 ML IV ONE ×2 (17:00)
[2017-04-19] MEDS ORDERED: TUBERCULIN, PPD 5 UNITS/0.1 ML SYRINGE I-DERMAL ONE (18:00)
[2017-04-19] MEDS ORDERED: Vancomycin Consult Pharmacy 1 EA OTHER SCH (18:30)
[2017-04-19] MEDS ORDERED: PIPERACIL-TAZO 3.375 GM PREMIX 50 ML IV SCH (18:30)
[2017-04-19] MEDS ORDERED: PIPERACIL-TAZO 2.25 GM PREMIX 50 ML IV SCH ×2 (18:35→20:00)
[2017-04-19 19:41] LABS: MAGNESIUM 1.6 MG/DL (1.5-2.5)
[2017-04-19] MEDS ORDERED: VANCOMYCIN 500 MG/NS 100 ML IV ONE ×2 (20:00)
[2017-04-19] MEDS ORDERED: DOCUSATE SODIUM 50 MG/SENNA 8.6 MG TAB PO SCH (21:00)
[2017-04-19] MEDS ORDERED: SODIUM CHLORIDE 0.9% FLUSH 10 ML FLUSH IV FLUSH SCH (21:00)
[2017-04-19] MEDS ORDERED: IOHEXOL 350 MG/ML 10 ML VIAL (for RAD DIAG) IV ONE (21:13)
--- NOTE | 2017-04-19 21:26 | RADRPT ---
EXAM DATE/TIME: 04/19/2017 20:55 [facility] COMPARISON: No previous studies available for comparison. INDICATIONS : Chest pain for 4 days. IV CONTRAST: 60 cc Omnipaque 350 (iohexol) IV ; Cumulative dose for multiple exams. RADIATION DOSE: 3.81 CTDIvol (mGy) MEDICAL HISTORY : Hypertension. Chronic obstructive pulmonary disease. HIV.chronic anemia SURGICAL HISTORY : None. ENCOUNTER: Initial ACUITY: 4 - 6 days PAIN SCALE: 10/10 LOCATION: Bilateral chest Patient was premedicated for underlying contrast media allergy. Patient experienced a contrast reaction consisting of hives . Patient was treated with diphenhydramine (Benadryl) IV . TECHNIQUE: Volumetric scanning was performed using a multi-row detector CT scanner. The data was post processed with a variety of visualization algorithms including full volume maximum intensity projection, multi -planar sliding thin slab reformation, curved planar reformation, and surface rendering techniques. Using automated exposure control and adjustment of the mA and/or kV according to patient size, radiat ion dose was kept as low as reasonably achievable to obtain optimal diagnostic quality images. DICOM format image data is available electronically for review and comparison. FINDINGS: LUNGS: There is right upper lobe consolidation with air bronchovascular thickening. Patchy nodular infiltrat es throughout the left lower lobe and to lesser degree left upper lobe. There is some cystic bronchie ctasis in the left upper lobe.. No pleural fluid is present. MEDIASTINUM: No abnormally enlarged lymph nodes by CT criteria. No axillary or hilar abnormalities are identified. ABDOMEN: The liver and spleen are free of focal defects. The gallbladder and pancreas demonstrate no abnormali ty. The adrenal glands are normal. The kidneys demonstrate no evidence of solid renal mass or hydrone phrosis. No free fluid or abdominal masses are identified. No para-aortic adenopathy is seen. PELVIS: No evidence of free fluid or pelvic mass. No abnormally enlarged inguinal or retroperitoneal lymph no sree are present. The bladder is unremarkable. THORACIC AORTA: The thoracic aortic root is normal with normal branching of the great vessels. There is no evidence of aneurysm or dissection. ABDOMINAL AORTA: The aorta is normal in caliber without aneurysm or dissection. The renal arteries are patent bilater ally. The proximal celiac and superior mesenteric arteries are patent and normal in diameter. PELVIC VESSELS: The internal iliac and external iliac vessels are patent without aneurysm or stenosis. CONCLUSION: 1. No aortic aneurysm/dissection. 2. Extensive consolidation of right upper lobe, left lower lobe and to lesser degree lingula. 3. Peribronchial vascular thickening greatest within the right upper lobe. This is likely infectious. Duong Pichardo MD on April 19, 2017 at 21:21 Board Certified Radiologist. This report was verified electronically.
--- NOTE | 2017-04-19 21:28 | RADRPT ---
EXAM DATE/TIME: 04/19/2017 20:57 [place] COMPARISON: No previous studies available for comparison. INDICATIONS : Chest pain for 4 days. IV CONTRAST: 60 cc Omnipaque 350 (iohexol) IV ; Cumulative dose for multiple exams. ORAL CONTRAST: No oral contrast ingested. RADIATION DOSE: 6.64 CTDIvol (mGy) MEDICAL HISTORY : Hypertension. Chronic obstructive pulmonary disease. HIV.chronic anemia SURGICAL HISTORY : None. ENCOUNTER: Initial ACUITY: 4 - 6 days PAIN SCALE: 10/10 LOCATION: Bilateral chest Patient was premedicated for underlying contrast media allergy. Patient experienced a contrast reaction consisting of hives . Patient was treated with diphenhydramine (Benadryl) IV . TECHNIQUE: Volumetric scanning of the abdomen and pelvis was performed. Using automated exposure control and ad justment of the mA and/or kV according to patient size, radiation dose was kept as low as reasonably achievable to obtain optimal diagnostic quality images. DICOM format image data is available electro nically for review and comparison. FINDINGS: LOWER LUNGS: Consolidative changes. LIVER: Homogeneous density without lesion. There is no dilation of the biliary tree. No calcified gallston es. Periportal edema. SPLEEN: Normal size without lesion. PANCREAS: Within normal limits. KIDNEYS: Normal in size and shape. There is no mass, stone or hydronephrosis. ADRENAL GLANDS: Within normal limits. VASCULAR: There is no aortic aneurysm. BOWEL/MESENTERY: There is no free intraperitoneal air or fluid. There is induration of the fat of the mesentery. Quest ionable abdominal ascites. Rectal tube noted. Wall thickening involving multiple bowel loops. ABDOMINAL WALL: Within normal limits. RETROPERITONEUM: There is no lymphadenopathy. BLADDER: No wall thickening or mass. REPRODUCTIVE: Within normal limits. INGUINAL: There is no lymphadenopathy or hernia. MUSCULOSKELETAL: Within normal limits for patient age. CONCLUSION: 1. Wall thickening involving multiple bowel loops without obstruction. 2. Induration of the mesenteric fat. Duong Pichardo MD on April 19, 2017 at 21:24 Board Certified Radiologist. This report was verified electronically.
[2017-04-19 22:10] LABS: C. DIFF EPI 027 PRESUMPTIVE NEGATIVE (NEGATIVE); C. DIFF TOXIN PCR NEGATIVE (NEGATIVE)
[2017-04-20] MEDS ORDERED: CHLORHEXIDINE GLUCONATE 2 % 1 PACK (2 CLOTHS) TOP SCH (04:00)
[2017-04-20] MEDS ORDERED: PANTOPRAZOLE SODIUM 40 MG VIAL IV SCH (09:00)
--- NOTE | 2017-04-20 14:20 | EKG ---
Date Performed: 04/19/2017 Time Performed: 12:40:05 PTAGE: 41 years EKG: Sinus rhythm LVH with repolarization abnormalities ST-T abnormalities are extremely prominent, much more prominen t than the prior tracing, cannot exclude possible central neurological event or ischemia. Clinical co rrelation is needed. PREVIOUS TRACING : 03/21/17 DOCTOR: Mathieu Garg Interpretating Date/Time 04/20/2017 14:18:47
[2017-04-20] MEDS ORDERED: SKIN TEST RESULT SCH (18:00)
== END 2017-04-19 22:47 | disposition left against medical advice (07) | DRG 977 ==
LOC: NEPE 12:33 → NEDA 12:43 → NEDH 19:36
PROVIDERS: ADMIT Anesthesiology; ATTEND Anesthesiology
DX: E43 Unspecified severe protein-calorie malnutrition (principal); B20 Human immunodeficiency virus [HIV] disease; E83.51 Hypocalcemia; R07.89 Other chest pain; J44.9 Chronic obstructive pulmonary disease, unspecified; F41.9 Anxiety disorder, unspecified; F32.9 Major depressive disorder, single episode, unspecified; K21.9 Gastro-esophageal reflux disease without esophagitis; G62.9 Polyneuropathy, unspecified; D64.9 Anemia, unspecified; I10 Essential (primary) hypertension; R35.0 Frequency of micturition; L30.9 Dermatitis, unspecified; F17.200 Nicotine dependence, unspecified, uncomplicated; E87.6 Hypokalemia; D72.825 Bandemia; B19.20 Unspecified viral hepatitis C without hepatic coma; E86.0 Dehydration
CPT/HCPCS: 36430; 71010; 71275; 74174; 74177; 76937; 82310; 82435; 82550; 82565; 82947; 83735; 83880; 84100; 84132; 84295; 84484; 84520; 85007; 85027; 85610; 85730; 86355; 86357; 86359; 86360; 86850; 86900; 86901; 86920; 87040; 87086; 87205; 87493; 87535; 93005; 94150; 94664; J0610; J1200; J1644; J1720; J2543; J3370; J3480; J7030; J7042; J7050; P9016; Q9967